=== PATIENT | female | born 1955 | race Caucasian/White ===

== ENCOUNTER 2018-04-14 13:36 | Emergency (ER) | payer BC, MEDICARE, OTHER ==
[2018-04-14] MEDS ORDERED: Albuterol/Ipratropium 3.0-0.5 MG/3 ML Neb Soln NEB ONE (14:36)
--- NOTE | 2018-04-14 14:38 | EDM.PDOC ---
ED HPI GENERAL MEDICAL PROBLEM - General Chief Complaint: Respiratory Problem Stated Complaint: SOB/ DIZZY/ BACK PAINS Time Seen by Provider: 04/14/18 14:33 Source of Information: Reports: Patient, RN Notes Reviewed History Limitations: Reports: No Limitations - History of Present Illness INITIAL COMMENTS - FREE TEXT/NARRATIVE: 62-year-old female presents to emergency department day complaint of cough and shortness of breath, she is tobacco dependent states she's been ill for the last couple days and she has had recurrent pneumonia in the past denies any fevers chest pain nausea vomiting Back Pain Score (Numeric/FACES): 10 - Related Data Allergies Allergy/AdvReac Type Severity Reaction Status Date / Time codeine Allergy Nausea Verified 04/14/18 14:16 fentanyl Allergy Cannot Verified 04/14/18 14:16 Remember Home Meds: Home Meds Albuterol [Proventil HFA] 2 puff INH Q4H PRN #1 inhaler 04/14/18 [Rx] Alendronate Sodium [Fosamax] 70 mg PO WEEKLY 04/14/18 [History] Calcium Acetate [PhosLo] 667 mg PO ASDIRECTED 04/14/18 [History] Cholecalciferol (Vitamin D3) [Vitamin D3] 5,000 unit PO DAILY 04/14/18 [History] Cyclobenzaprine [Flexeril] 10 mg PO ASDIRECTED 04/14/18 [History] Doxycycline Hyclate 100 mg PO BID #14 capsule 04/14/18 [Rx] Hydrocodone/Acetaminophen [Hydrocodon-Acetaminophen 5-325] 1 - 2 tab PO Q8H PRN 04/14/18 [History] Lisinopril [Zestril] 20 mg PO DAILY 04/14/18 [History] Omeprazole 40 mg PO DAILY 04/14/18 [History] Venlafaxine [Effexor XR] 300 mg PO DAILY 04/14/18 [History] Zolpidem Tartrate [Ambien] 10 mg PO BEDTIME PRN 04/14/18 [History] clonazePAM [Klonopin] 1 mg PO TID 04/14/18 [History] clonazePAM [Klonopin] 1 mg PO TID #30 tablet 04/14/18 [Rx] lamoTRIgine [Lamictal] 100 mg PO DAILY 04/14/18 [History] predniSONE [Prednisone] 20 mg PO DAILY #5 tablet 04/14/18 [Rx] rOPINIRole HCl [Requip] 1 - 2 mg PO BEDTIME 04/14/18 [History] Past Medical History HEENT History: Reports: Macular Degeneration 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: Reports: GERD 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: Musculoskeletal History: Reports: Back Pain, Chronic Psychiatric History: Reports: Anxiety, Depression - Past Surgical History HEENT Surgical History: Reports: Tonsillectomy Female Surgical History: Reports: Hysterectomy Musculoskeletal Surgical History: Reports: Shoulder Surgery Other Musculoskeletal Surgeries/Procedures:: back surgery Social & Family History - Tobacco Use Smoking Status *Q: Heavy Tobacco Smoker Years of Tobacco use: 45 Packs/Tins Daily: 1 - Caffeine Use Caffeine Use: Reports: Coffee - Recreational Drug Use Recreational Drug Use: No ED ROS GENERAL - Review of Systems Review Of Systems: See Below Constitutional: Denies: Fever, Chills HEENT: Reports: No Symptoms Respiratory: Reports: Shortness of Breath, Cough. Denies: Sputum Cardiovascular: Reports: Dyspnea on Exertion GI/Abdominal: Reports: No Symptoms : Reports: No Symptoms Musculoskeletal: Reports: No Symptoms ED EXAM, GENERAL - Physical Exam Exam: See Below Exam Limited By: No Limitations General Appearance: Alert, WD/WN, No Apparent Distress Respiratory/Chest: Decreased Breath Sounds, Wheezing. No: Respiratory Distress Cardiovascular: Regular Rate, Rhythm, No Murmur GI/Abdominal: Soft, Non-Tender Course - Vital Signs Last Recorded V/S: Last Vital Signs Temp 96.8 F 04/14/18 14:05 Pulse 85 04/14/18 14:05 Resp 20 04/14/18 14:05 BP 165/107 H 04/14/18 14:05 Pulse Ox 99 04/14/18 14:05 - Orders/Labs/Meds Orders: Active Orders 24 hr Category Date Time Status RT Aerosol Therapy [RC] ASDIRECTED Care 04/14/18 14:36 Active Chest 2V [CR] Urgent Exams 04/14/18 14:36 Taken Labs: Laboratory Tests 04/14/18 04/14/18 04/14/18 Range/Units 14:36 14:36 14:36 WBC 8.7 (4.5-11.0) K/uL RBC 4.62 (3.30-5.50) M/uL Hgb 13.7 (12.0-15.0) g/dL Hct 42.2 (36.0-48.0) % MCV 91 (80-98) fL MCH 30 (27-31) pg MCHC 33 (32-36) % Plt Count 388 (150-400) K/uL Neut % (Auto) 74 H (36-66) % Lymph % (Auto) 18 L (24-44) % Elk % (Auto) 7 H (2-6) % Eos % (Auto) 1 L (2-4) % Baso % (Auto) 1 (0-1) % Sodium 139 L (140-148) mmol/L Potassium 3.8 (3.6-5.2) mmol/L Chloride 103 (100-108) mmol/L Carbon Dioxide 26 (21-32) mmol/L Anion Gap 13.8 (5.0-14.0) mmol/L BUN 12 (7-18) mg/dL Creatinine 0.9 D (0.6-1.0) mg/dL Est Cr Clr Drug Dosing 52.57 mL/min Estimated GFR (MDRD) > 60 (>60) Glucose 97 (74-106) mg/dL Lactic Acid 0.9 (0.4-2.0) mmol/L Calcium 8.8 (8.5-10.1) mg/dL Total Bilirubin 0.2 (0.2-1.0) mg/dL AST 19 D (15-37) U/L ALT 23 D (12-78) U/L Alkaline Phosphatase 120 H (46-116) U/L Total Protein 7.3 (6.4-8.2) g/dL Albumin 3.6 (3.4-5.0) g/dL Globulin 3.7 H (2.3-3.5) g/dL Albumin/Globulin Ratio 1.0 L (1.2-2.2) Meds: Medications Discontinued Medications Generic Name Dose Route Start Last Admin Trade Name Freq PRN Reason Stop Dose Admin Albuterol/Ipratropium 3 ml 04/14/18 14:36 04/14/18 14:41 Duoneb 3.0-0.5 Mg/3 Ml NEB 04/14/18 14:37 3 ml ONETIME ONE Administration Departure - Departure Time of Disposition: 15:56 Disposition: Home, Self-Care 01 Condition: Good Clinical Impression: Bronchitis - Discharge Information Prescriptions: Albuterol [Proventil HFA] 2 puff INH Q4H PRN #1 inhaler PRN Reason: Shortness Of Breath clonazePAM [Klonopin] 1 mg PO TID #30 tablet Doxycycline Hyclate 100 mg PO BID #14 capsule predniSONE [Prednisone] 20 mg PO DAILY #5 tablet Referrals: PCP,None [Primary Care Provider] - Forms: ED Department Discharge Additional Instructions: Take full course of antibiotics, take full course of prednisone, use albuterol as needed for shortness of breath please keep your follow-up appointment with your primary care provider at the end of next week - My Orders Last 24 Hours: My Active Orders 04/14/18 14:36 RT Aerosol Therapy [RC] ASDIRECTED Chest 2V [CR] Urgent - Assessment/Plan Last 24 Hours: My Active Orders 04/14/18 14:36 RT Aerosol Therapy [RC] ASDIRECTED Chest 2V [CR] Urgent Plan: Assessment Acuity = acute Site and laterality = bronchitis complicated in a patient with tobacco dependence Etiology = suspicious for bacterial cause Manifestations = wheezing, dyspnea Location of injury = Home Lab values = CBC, CMP, lactic acid all within normal limits, chest x-ray I did review films myself I cannot appreciate any acute process, the official read from radiology is pending next field prescription written for doxycycline 100 mg by mouth twice a day 7 days, prednisone 20 mg once a day 5 days, albuterol inhaler 2 puffs every 4 hours when necessary as needed for shortness of breath, I did lilibeth her Klonopin 1 milligram by mouth 3 times a day total #30 until she follows up with her regular physician next Thursday Plan [ detail plan review] This note was dictated using [employer] voice recognition software please call with any questions on syntax or grammar.
--- NOTE | 2018-04-15 08:28 | CR ---
CHEST: 2 view CLINICAL HISTORY:SOB COMPARISON:2013 FINDINGS: The lungs are hyperaerated. The heart size, pulmonary vascular and hilar structures are no rmal. No infiltrate effusion or pneumothorax is seen. IMPRESSION: No acute cardiopulmonary process. Emphysematous changes
== END 2018-04-14 16:05 | disposition home or self-care (01) ==
LOC: JP.ED 13:36
DX: J40 Bronchitis, not specified as acute or chronic (principal); F17.210 Nicotine dependence, cigarettes, uncomplicated; Z79.899 Other long term (current) drug therapy; Z88.5 Allergy status to narcotic agent; Z88.8 Allergy status to other drugs, medicaments and biological substances
CPT/HCPCS: 36415; 71046; 71046-26; 80053; 83605; 85025; 94640; 99285-25; J7620-GY

== ENCOUNTER 2018-11-21 16:23 | Emergency (ER) | payer MEDICARE ==
[2018-11-21] MEDS ORDERED: Hyoscyamine 0.125 MG Tab.SL SL ONE (18:39)
[2018-11-21] MEDS ORDERED: Loperamide 1 MG/5 ML Soln 5 ML UD Cup PO ONE (18:39)
[2018-11-21] MEDS ORDERED: Ketorolac 60 MG/2 ML SDV IM ONE (18:39)
--- NOTE | 2018-11-21 18:48 | EDM.PDOC ---
ED HPI GENERAL MEDICAL PROBLEM - General Chief Complaint: Drug or Alcohol Abuse Stated Complaint: WITHDRAWLS Time Seen by Provider: 11/21/18 18:29 Source of Information: Reports: Patient, Old Records, RN Notes Reviewed History Limitations: Reports: No Limitations - History of Present Illness INITIAL COMMENTS - FREE TEXT/NARRATIVE: 63-year-old female presents emergency department today requesting narcotic medications, she has been using combination Percocet and morphine for chronic pain she states that she is in the process of withdrawing from these medications she last use narcotics Thursday morning. She has severe diarrhea as well as abdominal cramps she is scheduled to meet with the [facility] clinic on Thursday coming week and would like narcotics to bridge her Generalized Pain Score (Numeric/FACES): 10 - Related Data Allergies Allergy/AdvReac Type Severity Reaction Status Date / Time codeine Allergy Nausea Verified 04/14/18 14:16 fentanyl Allergy Cannot Verified 04/14/18 14:16 Remember Home Meds: Home Meds Calcium Acetate [PhosLo] 667 mg PO ASDIRECTED 04/14/18 [History] Cholecalciferol (Vitamin D3) [Vitamin D3] 5,000 unit PO DAILY 04/14/18 [History] Omeprazole 40 mg PO DAILY 04/14/18 [History] Venlafaxine [Effexor XR] 300 mg PO DAILY 04/14/18 [History] Zolpidem Tartrate [Ambien] 10 mg PO BEDTIME PRN 04/14/18 [History] clonazePAM [Klonopin] 1 mg PO TID #30 tablet 04/14/18 [Rx] Acetaminophen/oxyCODONE [Percocet 325-10 MG] 1 tab PO QID 11/21/18 [History] Diphenoxylate HCl/Atropine [Diphenoxylate-Atrop 2.5-0.025] 1 tab PO ASDIRECTED 11/21/18 [History] Morphine Sulfate 30 mg PO BID 11/21/18 [History] Past Medical History HEENT History: Reports: Macular Degeneration 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: Reports: GERD 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: Musculoskeletal History: Reports: Back Pain, Chronic Psychiatric History: Reports: Addiction, Anxiety, Depression - Past Surgical History HEENT Surgical History: Reports: Tonsillectomy Female Surgical History: Reports: Hysterectomy Musculoskeletal Surgical History: Reports: Shoulder Surgery Other Musculoskeletal Surgeries/Procedures:: back surgery Social & Family History - Tobacco Use Smoking Status *Q: Current Every Day Smoker Years of Tobacco use: 50 Packs/Tins Daily: 1 - Caffeine Use Caffeine Use: Reports: Coffee - Recreational Drug Use Recreational Drug Use: No Other Recreational Drug Type: cbd oil ED ROS GENERAL - Review of Systems Review Of Systems: See Below Constitutional: Reports: No Symptoms HEENT: Reports: No Symptoms Respiratory: Reports: No Symptoms Cardiovascular: Reports: No Symptoms GI/Abdominal: Reports: Abdominal Pain, Diarrhea : Reports: No Symptoms Musculoskeletal: Reports: No Symptoms ED EXAM, GENERAL - Physical Exam Exam: See Below Exam Limited By: No Limitations General Appearance: Alert, WD/WN, No Apparent Distress Respiratory/Chest: No Respiratory Distress GI/Abdominal: Soft, Non-Tender Course - Vital Signs Last Recorded V/S: Last Vital Signs Temp 94.6 F L 11/21/18 17:35 Pulse 71 11/21/18 17:35 Resp 18 11/21/18 17:35 BP 129/86 11/21/18 17:35 Pulse Ox 97 11/21/18 17:35 - Orders/Labs/Meds Orders: Active Orders 24 hr Category Date Time Status Hyoscyamine [Hyomax-SL] Med 11/21/18 18:39 Once 0.125 mg SL ONETIME ONE Ketorolac [Toradol] Med 11/21/18 18:39 Once 60 mg IM ONETIME ONE Loperamide [Imodium] Med 11/21/18 18:39 Once 4 mg PO ONETIME ONE Departure - Departure Time of Disposition: 18:50 Disposition: Home, Self-Care 01 Condition: Poor Clinical Impression: Narcotic withdrawal - Discharge Information Referrals: Michele Frye MD [Primary Care Provider] - Additional Instructions: Please keep your follow-up appointment at the Sub[facility] clinic recommend trying the medications you're to have on hand for symptomatic relief - My Orders Last 24 Hours: My Active Orders 11/21/18 18:39 Hyoscyamine [Hyomax-SL] 0.125 mg SL ONETIME ONE Ketorolac [Toradol] 60 mg IM ONETIME ONE Loperamide [Imodium] 4 mg PO ONETIME ONE - Assessment/Plan Last 24 Hours: My Active Orders 11/21/18 18:39 Hyoscyamine [Hyomax-SL] 0.125 mg SL ONETIME ONE Ketorolac [Toradol] 60 mg IM ONETIME ONE Loperamide [Imodium] 4 mg PO ONETIME ONE Plan: Assessment Acuity = acute Site and laterality = opioid withdrawal Etiology = secondary to chronic narcotic use Manifestations = none Location of injury = Home Lab values = none Plan She was given medications of Toradol for pain control as well as Anaspaz for the abdominal cramping and Imodium for the diarrhea, she states she's used all these medications in the past with no relief for her symptomatic relief she states the only thing that will work are narcotics I declined to provide her any narcotic medication This note was dictated using [employer] voice recognition software please call with any questions on syntax or grammar.
== END 2018-11-21 19:07 | disposition home or self-care (01) ==
LOC: JP.ED 16:23
DX: F11.23 Opioid dependence with withdrawal (principal); F17.210 Nicotine dependence, cigarettes, uncomplicated; Z88.5 Allergy status to narcotic agent; Z79.899 Other long term (current) drug therapy
CPT/HCPCS: 96372; 99283; A9270; J1885

== ENCOUNTER 2019-03-22 22:24 | Observation (INO) | payer MEDICARE ==
--- NOTE | 2019-03-22 23:05 | EDM.PDOC ---
ED HPI GENERAL MEDICAL PROBLEM - General Chief Complaint: General Stated Complaint: MEDICAL [facility] Time Seen by Provider: 03/22/19 23:05 Source of Information: Reports: Patient History Limitations: Reports: No Limitations - History of Present Illness INITIAL COMMENTS - FREE TEXT/NARRATIVE: pt arrived screaming that she was having severe leg cramps. She is on suboxnone and this was perscribed by Dr Serrano. Onset: Today, Sudden Duration: Hour(s): Location: Reports: Other (pt states she is having leg cramps ans diarrhea. ) Associated Symptoms: Reports: Loss of Appetite, Weakness, Other (leg cramps) Bilateral Leg Pain Score (Numeric/FACES): 8 - Related Data Allergies Allergy/AdvReac Type Severity Reaction Status Date / Time fentanyl Allergy Cannot Verified 04/14/18 14:16 Remember meperidine [From Demerol] Allergy Cannot Verified 03/22/19 22:42 Remember morphine Allergy Cannot Verified 03/22/19 22:42 Remember codeine AdvReac Nausea Verified 03/23/19 16:24 Home Meds: Home Meds Calcium Acetate [PhosLo] 667 mg PO ASDIRECTED 04/14/18 [History] Omeprazole 40 mg PO DAILY 04/14/18 [History] Venlafaxine [Effexor XR] 300 mg PO DAILY 04/14/18 [History] Zolpidem Tartrate [Ambien] 10 mg PO BEDTIME PRN 04/14/18 [History] clonazePAM [Klonopin] 1 mg PO TID #30 tablet 04/14/18 [Rx] Naltrexone 25 mg PO DAILY 03/22/19 [History] buPROPion [buPROPion XL] 150 mg PO DAILY 03/22/19 [History] clonazePAM [Klonopin] 1 mg PO DAILY 03/22/19 [History] traZODone HCl [Trazodone HCl] 50 mg PO BEDTIME 03/22/19 [History] Buprenorphine HCl/Naloxone HCl [Suboxone 12 mg-3 mg Sl Film] 0.5 strip BUCCAL TID 03/23/19 [History] Past Medical History HEENT History: Reports: Macular Degeneration 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: Reports: GERD [employer]IAN History: Reports: Musculoskeletal History: Reports: Back Pain, Chronic Psychiatric History: Reports: Addiction, Anxiety, Depression - Past Surgical History HEENT Surgical History: Reports: Tonsillectomy Female Surgical History: Reports: Hysterectomy Musculoskeletal Surgical History: Reports: Shoulder Surgery Other Musculoskeletal Surgeries/Procedures:: back surgery Social & Family History - Family History Family Medical History: Unobtainable - Tobacco Use Smoking Status *Q: Current Every Day Smoker Years of Tobacco use: 40 Packs/Tins Daily: 1 - Caffeine Use Caffeine Use: Reports: Coffee Caffeine Use Comment: daily coffee use - Recreational Drug Use Recreational Drug Use: No ED ROS GENERAL - Review of Systems Review Of Systems: See Below Constitutional: Reports: Decreased Appetite HEENT: Reports: No Symptoms Respiratory: Reports: No Symptoms Cardiovascular: Reports: No Symptoms Endocrine: Reports: No Symptoms GI/Abdominal: Reports: Abdominal Pain, Nausea, Vomiting : Reports: No Symptoms Musculoskeletal: Reports: No Symptoms Skin: Reports: No Symptoms ED EXAM, GENERAL - Physical Exam Exam: See Below Free Text/Narrative:: pt arrived with pain in the rt lower abdoman. t Exam Limited By: No Limitations General Appearance: Alert, Moderate Distress, Severe Distress Ears: Normal TMs Nose: Normal Inspection Throat/Mouth: Normal Inspection Head: Atraumatic Neck: Normal Inspection Respiratory/Chest: No Respiratory Distress Cardiovascular: Regular Rate, Rhythm GI/Abdominal: Soft, Non-Tender (Female) Exam: Deferred Rectal (Female) Exam: Deferred Back Exam: Normal Inspection Extremities: Normal Inspection, Other (pt is having severe cramps in the legs. ) Neurological: Alert, Oriented, Inattentive, Confused Psychiatric: Anxious Course - Vital Signs Last Recorded V/S: Last Vital Signs Temp 36.2 C 03/24/19 19:58 Pulse 64 03/24/19 19:58 Resp 18 03/24/19 19:58 BP 137/83 03/24/19 19:58 Pulse Ox 93 L 03/24/19 19:58 - Orders/Labs/Meds Orders: Medication Orders Acetaminophen (Tylenol) 650 mg PO Q4H PRN PRN Reason: Pain (Mild 1-3)/fever Last Admin: 03/24/19 11:41 Dose: 650 mg Admin: 03/23/19 19:26 Dose: 650 mg Albuterol (Proventil Neb Soln) 2.5 mg NEB Q4H PRN PRN Reason: Shortness Of Breath/wheezing Bupropion HCl (Wellbutrin Xl) 150 mg PO DAILY ALEX Last Admin: 03/24/19 09:23 Dose: 150 mg Admin: 03/23/19 09:27 Dose: 150 mg Clonazepam (Klonopin) 1 mg PO TID [facility] Last Admin: 03/24/19 20:07 Dose: 1 mg Admin: 03/23/19 15:14 Dose: Not Given Admin: 03/23/19 09:27 Dose: 1 mg Docusate Sodium (Colace) 100 mg PO BID PRN PRN Reason: Constipation Promethazine HCl 6.25 mg/ (Sodium Chloride) 50.25 mls @ 200 mls/hr IV Q6H PRN PRN Reason: Nausea/Vomiting Last Admin: 03/23/19 06:33 Dose: 200 mls/hr Sodium Chloride (Normal Saline) 1,000 mls @ 50 mls/hr IV ASDIRECTED [facility] Last Admin: 03/24/19 11:56 Dose: 50 mls/hr Ibuprofen (Motrin) 600 mg PO Q6H PRN PRN Reason: Pain Last Admin: 03/24/19 20:07 Dose: 600 mg Lorazepam (Ativan) 1 mg IVPUSH Q4H PRN PRN Reason: Agitation Last Admin: 03/23/19 13:45 Dose: 1 mg Ondansetron HCl (Zofran Odt) 4 mg PO Q6H PRN PRN Reason: Nausea able to take PO Last Admin: 03/23/19 19:27 Dose: 4 mg Admin: 03/23/19 13:45 Dose: 4 mg Pantoprazole Sodium (Protonix) 40 mg PO ACBREAKFAST [facility] Last Admin: 03/24/19 07:26 Dose: 40 mg Admin: 03/23/19 09:27 Dose: 40 mg Admin: 03/23/19 06:26 Dose: 40 mg Buprenor/Nalox 12mg/ (3mg Sl Film (Ptom)) 0 each PO TID [facility] Last Admin: 03/24/19 20:08 Dose: 0.5 each Admin: 03/24/19 14:16 Dose: 1 each Admin: 03/24/19 09:24 Dose: 1 each Admin: 03/24/19 03:19 Dose: 0.5 each Admin: 03/23/19 21:55 Dose: Not Given Admin: 03/23/19 15:14 Dose: Not Given Trazodone HCl (Trazodone) 50 mg PO BEDTIME [facility] Last Admin: 03/24/19 20:08 Dose: 50 mg Admin: 03/23/19 20:00 Dose: 50 mg Venlafaxine HCl (Effexor Xr) 300 mg PO DAILY [facility] Last Admin: 03/24/19 09:23 Dose: 300 mg Admin: 03/23/19 09:27 Dose: 300 mg Labs: Laboratory Tests 03/22/19 03/22/19 03/22/19 Range/Units 23:04 23:05 23:15 WBC 11.2 H (4.5-11.0) K/uL RBC 5.03 (3.30-5.50) M/uL Hgb 14.4 (12.0-15.0) g/dL Hct 44.7 (36.0-48.0) % MCV 89 (80-98) fL MCH 29 (27-31) pg MCHC 32 (32-36) % Plt Count 369 (150-400) K/uL Neut % (Auto) 71 H (36-66) % Lymph % (Auto) 20 L (24-44) % [place] % (Auto) 6 (2-6) % Eos % (Auto) 2 (2-4) % Baso % (Auto) 0 (0-1) % Sodium (140-148) mmol/L Potassium (3.6-5.2) mmol/L Chloride (100-108) mmol/L Carbon Dioxide (21-32) mmol/L Anion Gap (5.0-14.0) mmol/L BUN (7-18) mg/dL Creatinine (0.6-1.0) mg/dL Est Cr Clr Drug Dosing mL/min Estimated GFR (MDRD) (>60) Glucose (74-106) mg/dL Calcium (8.5-10.1) mg/dL Total Bilirubin (0.2-1.0) mg/dL AST (15-37) U/L ALT (12-78) U/L Alkaline Phosphatase (46-116) U/L Total Protein (6.4-8.2) g/dL Albumin (3.4-5.0) g/dL Globulin (2.3-3.5) g/dL Albumin/Globulin Ratio (1.2-2.2) Urine Color Yellow (YELLOW) Urine Appearance Clear (CLEAR) Urine pH 5.5 (5.0-8.0) Ur Specific [place] 1.025 (1.008-1.030) Urine Protein Negative (NEGATIVE) mg/dL Urine Glucose (UA) Normal (NEGATIVE) mg/dL Urine Ketones Negative (NEGATIVE) mg/dL Urine Occult Blood Trace (NEGATIVE) Urine Nitrite Negative (NEGATIVE) Urine Bilirubin Negative (NEGATIVE) Urine Urobilinogen Normal (0.2-1.0) EU/dL Ur Leukocyte Esterase Negative (NEGATIVE) Urine RBC 0-5 (0-5) Urine WBC 0-5 (0-5) Ur Epithelial Cells Few Amorphous Sediment Few Urine Bacteria Few Urine Mucus Not seen Urine Opiates Screen Negative (NEGATIVE) Ur Oxycodone Screen Presumptive positive H (NEGATIVE) Urine Methadone Screen Negative (NEGATIVE) Ur Propoxyphene Screen Negative (NEGATIVE) Ur Barbiturates Screen Negative (NEGATIVE) Ur Tricyclics Screen Negative (NEGATIVE) Ur Phencyclidine Scrn Negative (NEGATIVE) Ur Amphetamine Screen Negative (NEGATIVE) U Methamphetamines Scrn Negative (NEGATIVE) Urine MDMA Screen Negative (NEGATIVE) U Benzodiazepines Scrn Negative (NEGATIVE) U Cocaine Metab Screen Negative (NEGATIVE) U Marijuana (THC) Screen Negative (NEGATIVE) Ethyl Alcohol mg/dL 03/22/19 03/22/19 Range/Units 23:15 23:15 WBC (4.5-11.0) K/uL RBC (3.30-5.50) M/uL Hgb (12.0-15.0) g/dL Hct (36.0-48.0) % MCV (80-98) fL MCH (27-31) pg MCHC (32-36) % Plt Count (150-400) K/uL Neut % (Auto) (36-66) % Lymph % (Auto) (24-44) % [place] % (Auto) (2-6) % Eos % (Auto) (2-4) % Baso % (Auto) (0-1) % Sodium 140 (140-148) mmol/L Potassium 3.8 (3.6-5.2) mmol/L Chloride 103 (100-108) mmol/L Carbon Dioxide 28 (21-32) mmol/L Anion Gap 9.1 (5.0-14.0) mmol/L BUN 15 (7-18) mg/dL Creatinine 1.6 H D (0.6-1.0) mg/dL Est Cr Clr Drug Dosing 29.20 mL/min Estimated GFR (MDRD) 33 L (>60) Glucose 78 (74-106) mg/dL Calcium 9.3 (8.5-10.1) mg/dL Total Bilirubin 0.2 (0.2-1.0) mg/dL AST 17 (15-37) U/L ALT 21 (12-78) U/L Alkaline Phosphatase 162 H (46-116) U/L Total Protein 7.5 (6.4-8.2) g/dL Albumin 3.9 (3.4-5.0) g/dL Globulin 3.6 H (2.3-3.5) g/dL Albumin/Globulin Ratio 1.1 L (1.2-2.2) Urine Color (YELLOW) Urine Appearance (CLEAR) Urine pH (5.0-8.0) Ur Specific [place] (1.008-1.030) Urine Protein (NEGATIVE) mg/dL Urine Glucose (UA) (NEGATIVE) mg/dL Urine Ketones (NEGATIVE) mg/dL Urine Occult Blood (NEGATIVE) Urine Nitrite (NEGATIVE) Urine Bilirubin (NEGATIVE) Urine Urobilinogen (0.2-1.0) EU/dL Ur Leukocyte Esterase (NEGATIVE) Urine RBC (0-5) Urine WBC (0-5) Ur Epithelial Cells Amorphous Sediment Urine Bacteria Urine Mucus Urine Opiates Screen (NEGATIVE) Ur Oxycodone Screen (NEGATIVE) Urine Methadone Screen (NEGATIVE) Ur Propoxyphene Screen (NEGATIVE) Ur Barbiturates Screen (NEGATIVE) Ur Tricyclics Screen (NEGATIVE) Ur Phencyclidine Scrn (NEGATIVE) Ur Amphetamine Screen (NEGATIVE) U Methamphetamines Scrn (NEGATIVE) Urine MDMA Screen (NEGATIVE) U Benzodiazepines Scrn (NEGATIVE) U Cocaine Metab Screen (NEGATIVE) U Marijuana (THC) Screen (NEGATIVE) Ethyl Alcohol < 3 mg/dL Meds: Medications Generic Name Dose Route Start Last Admin Trade Name Freq PRN Reason Stop Dose Admin Acetaminophen 650 mg 03/23/19 03:16 03/24/19 11:41 Tylenol PO 650 mg Q4H PRN Administration Pain (Mild 1-3)/fever Albuterol 2.5 mg 03/23/19 03:16 Proventil Neb Soln NEB Q4H PRN Shortness Of Breath/wheezing Bupropion HCl 150 mg 03/23/19 09:00 03/24/19 09:23 Wellbutrin Xl PO 150 mg DAILY ALEX Administration Clonazepam 1 mg 03/23/19 09:00 03/24/19 20:07 Klonopin PO 1 mg TID ALEX Administration Docusate Sodium 100 mg 03/23/19 03:16 Colace PO BID PRN Constipation Promethazine HCl 6.25 mg/ 50.25 mls @ 200 mls/hr 03/23/19 03:16 03/23/19 06: 33 Sodium Chloride IV 200 mls/hr Q6H PRN Administration Nausea/Vomiting Sodium Chloride 1,000 mls @ 50 mls/hr 03/24/19 10:05 03/24/19 11:56 Normal Saline IV 50 mls/hr ASDIRECTED ALEX Administration Ibuprofen 600 mg 03/24/19 10:06 03/24/19 20:07 Motrin PO 600 mg Q6H PRN Administration Pain Lorazepam 1 mg 03/23/19 03:16 03/23/19 13:45 Ativan IVPUSH 1 mg Q4H PRN Administration Agitation Ondansetron HCl 4 mg 03/23/19 03:16 03/23/19 19:27 Zofran Odt PO 4 mg Q6H PRN Administration Nausea able to take PO Pantoprazole Sodium 40 mg 03/23/19 07:30 03/24/19 07:26 Protonix PO 40 mg ACBREAKFAST ALEX Administration Buprenor/Nalox 12mg/ 0 each 03/23/19 14:00 03/24/19 20:08 3mg Sl Film (Ptom) PO 0.5 each TID ALEX Administration Trazodone HCl 50 mg 03/23/19 21:00 03/24/19 20:08 Trazodone PO 50 mg BEDTIME ALEX Administration Venlafaxine HCl 300 mg 03/23/19 09:00 03/24/19 09:23 Effexor Xr PO 300 mg DAILY ALEX Administration Discontinued Medications Generic Name Dose Route Start Last Admin Trade Name Freq PRN Reason Stop Dose Admin Al Hydroxide/Mg Hydroxide 15 0 ml 03/23/19 00:52 03/23/19 00:56 ml/ Lidocaine HCl 15 ml PO 03/23/19 00:53 30 ml ONETIME ONE Administration Sodium Chloride 1,000 mls @ 999 mls/hr 03/23/19 00:15 03/23/19 00:45 Normal Saline IV 999 mls/hr ASDIRECTED ALEX Administration Sodium Chloride 1,000 mls @ 999 mls/hr 03/23/19 01:15 Normal Saline IV ASDIRECTED ALXE Sodium Chloride 1,000 mls @ 125 mls/hr 03/23/19 03:16 03/24/19 03:42 Normal Saline IV 125 mls/hr ASDIRECTED ALEX Administration Potassium Chloride 20 meq/ 100 mls @ 50 mls/hr 03/24/19 05:59 03/24/19 06:24 Premix IV 03/24/19 09:58 50 mls/hr Q2H ALEX Administration Potassium Chloride 20 meq/ 112 mls @ 56 mls/hr 03/24/19 08:30 03/24/19 09:30 Lidocaine HCl 2 ml/ Sodium IV 03/24/19 10:29 56 mls/hr Chloride ONETIME ONE Administration Ibuprofen 800 mg 03/23/19 03:16 Motrin PO Q6H PRN Pain (mild 1-3) Ketorolac Tromethamine 30 mg 03/23/19 03:16 Toradol IVPUSH 03/28/19 03:17 Q6H PRN Pain (moderate 4-6) Lidocaine HCl 5 ml 03/24/19 06:04 03/24/19 06:24 Xylocaine-Mpf 1% INJECT 03/24/19 06:05 5 ml ONETIME ONE Administration Lorazepam 2 mg 03/23/19 01:14 03/23/19 01:26 Ativan IVPUSH 03/23/19 01:15 2 mg ONETIME ONE Administration Non-Formulary Medication 1 film 03/23/19 09:00 03/23/19 10:55 Buprenorphine Hcl/Naloxone Hcl [Buprenorp-Nalox 8-2 Mg Sl Film] PO Not Given DAILY ALEX Oxycodone/Acetaminophen 1 tab 03/23/19 22:02 03/24/19 06:39 Percocet 325-5 Mg PO 1 tab Q4H PRN Administration Pain Potassium Chloride 40 meq 03/24/19 16:30 03/24/19 16:44 Klor-Con M20 PO 03/24/19 16:31 40 meq ONETIME ONE Administration Trazodone HCl 50 mg 03/23/19 09:00 08/28/19 09:27 Trazodone PO Not Given DAILY ALEX - Re-Assessments/Exams Free Text/Narrative Re-Assessment/Exam: 03/23/19 01:35 lab work lookd good except her creatinine is 1.6. Her cat scan did not show acute findings. her drug screen showed oxycodone but no other drugs. Departure - Departure Time of Disposition: 01:36 Disposition: Admitted As Inpatient 68 Condition: Fair Clinical Impression: Confusion, Dehydration - Discharge Information
[2019-03-23] MEDS ORDERED: Sodium Chloride 0.9% 1,000 ML IV SCH ×2 (00:15→01:15)
[2019-03-23] MEDS ORDERED: Alum Hydrox/Mag Hydrox/Simeth 15 ML, Lidocaine 2% 15 ML PO ONE ×2 (00:52)
[2019-03-23] MEDS ORDERED: LORazepam 2 MG/ML SDV IVPUSH ONE (01:14)
--- NOTE | 2019-03-23 01:35 | CRLCT ---
INDICATION: Confusion TECHNIQUE: CT head without contrast. COMPARISON: Head CT 06/26/2013 FINDINGS: CSF spaces: Within normal limits for age. Brain parenchyma: The love-white differentiation is normal. No sign of mass, hemorrhage, or midline shift. Skull base and calvarium: Mild mucosal thickening paranasal sinuses. Mild atherosclerotic calcification. The visualized orbits are grossly unremarkable. No skull fractures. IMPRESSION: Unremarkable noncontrast head CT. Please note that all CT scans at this facility use dose modulation, iterative reconstruction, and/or weight-based dosing when appropriate to reduce radiation dose to as low as reasonably achievable. Dictated by Quan Norwood MD @ Mar 23 2019 1:29AM Signed by Dr. Quan Norwood @ Mar 23 2019 1:34AM
--- NOTE | 2019-03-23 01:41 | PCM.HP.2 ---
H&P History of Present Illness - General Date of Service: 03/23/19 Admit Problem/Dx: Admission Diagnosis/Problem Admission Diagnosis/Problem Confusion Source of Information: EMS, Provider, RN History Limitations: Reports: Altered Mental Status - History of Present Illness Initial Comments - Free Text/Narative: chief complaint: leg cramps This is a 63 year old female present to the ER via EMS, reports she called the ambulance due to severe leg cramps. The EMS noted her to be confused rambling speech, paranoid, frequent yelling out in pain. unable to obtain history of present illness from Ms. Fairbanks. current history -Suboxone patient -psych medication Onset of Symptoms: Reports: Sudden Duration of Symptoms: Reports: Hour(s): Location: Reports: Other (lower leg cramps, multi complaints of pain in body) Quality: Reports: Sharp, Stabbing Severity: Severe Improves with: Reports: None Worsens with: Reports: None Context: Reports: Other (various pain complaint, rambling speech, not making any sense or answer questions appropriately.) Associated Symptoms: Reports: Confusion Bilateral Leg Pain Score (Numeric/FACES): 8 - Related Data Allergies/Adverse Reactions: Allergies Allergy/AdvReac Type Severity Reaction Status Date / Time codeine Allergy Nausea Verified 04/14/18 14:16 fentanyl Allergy Cannot Verified 04/14/18 14:16 Remember meperidine [From Demerol] Allergy Cannot Verified 03/22/19 22:42 Remember morphine Allergy Cannot Verified 03/22/19 22:42 Remember Home Medications: Home Meds Calcium Acetate [PhosLo] 667 mg PO ASDIRECTED 04/14/18 [History] Omeprazole 40 mg PO DAILY 04/14/18 [History] Venlafaxine [Effexor XR] 300 mg PO DAILY 04/14/18 [History] Zolpidem Tartrate [Ambien] 10 mg PO BEDTIME PRN 04/14/18 [History] clonazePAM [Klonopin] 1 mg PO TID #30 tablet 04/14/18 [Rx] Buprenorphine HCl/Naloxone HCl [Buprenorp-Nalox 8-2 mg Sl Film] 1 film PO DAILY 03/22/19 [History] Naltrexone 50 mg PO DAILY 03/22/19 [History] buPROPion [buPROPion XL] 150 mg PO DAILY 03/22/19 [History] clonazePAM [Klonopin] 1 mg PO DAILY 03/22/19 [History] traZODone HCl [Trazodone HCl] 50 mg PO DAILY 03/22/19 [History] Past Medical History HEENT History: Reports: Macular Degeneration 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: Reports: GERD 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: Musculoskeletal History: Reports: Back Pain, Chronic Psychiatric History: Reports: Addiction, Anxiety, Depression - Past Surgical History HEENT Surgical History: Reports: Tonsillectomy Female Surgical History: Reports: Hysterectomy Musculoskeletal Surgical History: Reports: Shoulder Surgery Other Musculoskeletal Surgeries/Procedures:: back surgery Social & Family History - Family History Family Medical History: Unobtainable - Tobacco Use Smoking Status *Q: Current Every Day Smoker Years of Tobacco use: 40 Packs/Tins Daily: 1 - Caffeine Use Caffeine Use: Reports: Coffee Caffeine Use Comment: daily coffee use - Recreational Drug Use Recreational Drug Use: No H&P Review of Systems - Review of Systems: Review Of Systems: Unable To Obtain Exam - Exam Exam: See Below - Vital Signs Vital Signs: Last Vital Signs Temp 35.5 C 03/22/19 22:47 Pulse 80 03/23/19 01:03 Resp 14 03/23/19 01:03 BP 155/98 H 03/23/19 01:03 Pulse Ox 96 03/22/19 22:47 Weight: 52.163 kg - Exam General: Other (rambling speech, paranoid thoughts) HEENT: Conjunctiva Clear, EOMI, Hearing Intact, Mucosa Moist & [place], Pupils Equal Neck: Supple, Full Range of Motion Lungs: Clear to Auscultation, Normal Respiratory Effort Cardiovascular: Regular Rate, Regular Rhythm, Normal S1, Normal S2 GI/Abdominal Exam: Normal Bowel Sounds, Soft, Non-Tender, No Distention (Female) Exam: Deferred Rectal (Female) Exam: Deferred Back Exam: Normal Inspection, Full Range of Motion Extremities: Normal Inspection, Normal Range of Motion, Non-Tender, No Pedal Edema, Normal Capillary Refill, Other (calf muscles are soft and palpable. negative alva's sign) Peripheral Pulses: 2+: Radial (L), Radial (R), Dorsalis Pedis (L), Dorsalis Pedis (R) Skin: Warm, Dry, Intact Neurological: Strength Equal Bilateral, Normal Tone Neuro Extensive - Mental Status: Disorientation to Person, Disorientation to Place, Disorientation to Time, Inattentive Psychiatric: Agitated, Other (paranoid thoughts) - Patient Data Lab Results Last 24 hrs: Laboratory Results - last 24 hr 03/22/19 03/22/19 03/22/19 Range/Units 23:04 23:05 23:15 WBC 11.2 H (4.5-11.0) K/uL RBC 5.03 (3.30-5.50) M/uL Hgb 14.4 (12.0-15.0) g/dL Hct 44.7 (36.0-48.0) % MCV 89 (80-98) fL MCH 29 (27-31) pg MCHC 32 (32-36) % Plt Count 369 (150-400) K/uL Neut % (Auto) 71 H (36-66) % Lymph % (Auto) 20 L (24-44) % [place] % (Auto) 6 (2-6) % Eos % (Auto) 2 (2-4) % Baso % (Auto) 0 (0-1) % Sodium (140-148) mmol/L Potassium (3.6-5.2) mmol/L Chloride (100-108) mmol/L Carbon Dioxide (21-32) mmol/L Anion Gap (5.0-14.0) mmol/L BUN (7-18) mg/dL Creatinine (0.6-1.0) mg/dL Est Cr Clr Drug Dosing mL/min Estimated GFR (MDRD) (>60) Glucose (74-106) mg/dL Calcium (8.5-10.1) mg/dL Total Bilirubin (0.2-1.0) mg/dL AST (15-37) U/L ALT (12-78) U/L Alkaline Phosphatase (46-116) U/L Total Protein (6.4-8.2) g/dL Albumin (3.4-5.0) g/dL Globulin (2.3-3.5) g/dL Albumin/Globulin Ratio (1.2-2.2) Urine Color Yellow (YELLOW) Urine Appearance Clear (CLEAR) Urine pH 5.5 (5.0-8.0) Ur Specific [place] 1.025 (1.008-1.030) Urine Protein Negative (NEGATIVE) mg/dL Urine Glucose (UA) Normal (NEGATIVE) mg/dL Urine Ketones Negative (NEGATIVE) mg/dL Urine Occult Blood Trace (NEGATIVE) Urine Nitrite Negative (NEGATIVE) Urine Bilirubin Negative (NEGATIVE) Urine Urobilinogen Normal (0.2-1.0) EU/dL Ur Leukocyte Esterase Negative (NEGATIVE) Urine RBC 0-5 (0-5) Urine WBC 0-5 (0-5) Ur Epithelial Cells Few Amorphous Sediment Few Urine Bacteria Few Urine Mucus Not seen Urine Opiates Screen Negative (NEGATIVE) Ur Oxycodone Screen Presumptive positive H (NEGATIVE) Urine Methadone Screen Negative (NEGATIVE) Ur Propoxyphene Screen Negative (NEGATIVE) Ur Barbiturates Screen Negative (NEGATIVE) Ur Tricyclics Screen Negative (NEGATIVE) Ur Phencyclidine Scrn Negative (NEGATIVE) Ur Amphetamine Screen Negative (NEGATIVE) U Methamphetamines Scrn Negative (NEGATIVE) Urine MDMA Screen Negative (NEGATIVE) U Benzodiazepines Scrn Negative (NEGATIVE) U Cocaine Metab Screen Negative (NEGATIVE) U Marijuana (THC) Screen Negative (NEGATIVE) Ethyl Alcohol mg/dL 03/22/19 03/22/19 Range/Units 23:15 23:15 WBC (4.5-11.0) K/uL RBC (3.30-5.50) M/uL Hgb (12.0-15.0) g/dL Hct (36.0-48.0) % MCV (80-98) fL MCH (27-31) pg MCHC (32-36) % Plt Count (150-400) K/uL Neut % (Auto) (36-66) % Lymph % (Auto) (24-44) % [place] % (Auto) (2-6) % Eos % (Auto) (2-4) % Baso % (Auto) (0-1) % Sodium 140 (140-148) mmol/L Potassium 3.8 (3.6-5.2) mmol/L Chloride 103 (100-108) mmol/L Carbon Dioxide 28 (21-32) mmol/L Anion Gap 9.1 (5.0-14.0) mmol/L BUN 15 (7-18) mg/dL Creatinine 1.6 H D (0.6-1.0) mg/dL Est Cr Clr Drug Dosing 29.20 mL/min Estimated GFR (MDRD) 33 L (>60) Glucose 78 (74-106) mg/dL Calcium 9.3 (8.5-10.1) mg/dL Total Bilirubin 0.2 (0.2-1.0) mg/dL AST 17 (15-37) U/L ALT 21 (12-78) U/L Alkaline Phosphatase 162 H (46-116) U/L Total Protein 7.5 (6.4-8.2) g/dL Albumin 3.9 (3.4-5.0) g/dL Globulin 3.6 H (2.3-3.5) g/dL Albumin/Globulin Ratio 1.1 L (1.2-2.2) Urine Color (YELLOW) Urine Appearance (CLEAR) Urine pH (5.0-8.0) Ur Specific [place] (1.008-1.030) Urine Protein (NEGATIVE) mg/dL Urine Glucose (UA) (NEGATIVE) mg/dL Urine Ketones (NEGATIVE) mg/dL Urine Occult Blood (NEGATIVE) Urine Nitrite (NEGATIVE) Urine Bilirubin (NEGATIVE) Urine Urobilinogen (0.2-1.0) EU/dL Ur Leukocyte Esterase (NEGATIVE) Urine RBC (0-5) Urine WBC (0-5) Ur Epithelial Cells Amorphous Sediment Urine Bacteria Urine Mucus Urine Opiates Screen (NEGATIVE) Ur Oxycodone Screen (NEGATIVE) Urine Methadone Screen (NEGATIVE) Ur Propoxyphene Screen (NEGATIVE) Ur Barbiturates Screen (NEGATIVE) Ur Tricyclics Screen (NEGATIVE) Ur Phencyclidine Scrn (NEGATIVE) Ur Amphetamine Screen (NEGATIVE) U Methamphetamines Scrn (NEGATIVE) Urine MDMA Screen (NEGATIVE) U Benzodiazepines Scrn (NEGATIVE) U Cocaine Metab Screen (NEGATIVE) U Marijuana (THC) Screen (NEGATIVE) Ethyl Alcohol < 3 mg/dL Result Diagrams: 03/22/19 23:15 03/22/19 23:15 - Problem List (1) Confusion SNOMED Code(s): 635830215 ICD Code: R41.0 - DISORIENTATION, UNSPECIFIED Status: Acute Priority: High Current Visit: Yes (2) Opiate addiction SNOMED Code(s): 04435943 ICD Code: F11.20 - OPIOID DEPENDENCE, UNCOMPLICATED Status: Chronic Priority: Medium Current Visit: Yes Qualifiers: Complication of substance-induced condition: with delirium Problem List Initiated/Reviewed/Updated: Yes Orders Last 24hrs: Active Orders 24 hr Category Date Time Status Patient Status Manage Transfer [TRANSFER] Routine ADT 03/23/19 01:21 Active Sodium Chloride 0.9% [Normal Saline] 1,000 ml Med 03/23/19 00:15 Active IV ASDIRECTED Sodium Chloride 0.9% [Normal Saline] 1,000 ml Med 03/23/19 01:15 Active IV ASDIRECTED Resuscitation Status Routine Resus Stat 03/23/19 01:22 Ordered Medication Orders Sodium Chloride (Normal Saline) 1,000 mls @ 999 mls/hr IV ASDIRECTED [facility] Last Admin: 03/23/19 00:45 Dose: 999 mls/hr Sodium Chloride (Normal Saline) 1,000 mls @ 999 mls/hr IV ASDIRECTED ALEX Assessment/Plan Comment:: ASSESSMENT AND PLAN - chief complaint: confusion This is a 63 year old female present to the ER via EMS, reports she called the ambulance due to severe leg cramps. The EMS noted her to be confused rambling speech, paranoid, frequent yelling out in pain. unable to obtain history of present illness from Ms. Fairbanks. current history:-Suboxone patient, psych medication ER evaluation; CBC normal, CMP cr 1. 4, UA normal, UDS + for oxycodone, ETOH level <3, HEAD CT normal will plan to admit Observation status tonight and re-evaluate in am. Confusion -IV fluids NS 125ml/hr -IV Ativan 1 mg every 4 hours prn confusion -CIWAA protocol Opiate Addiction -Suboxone as directed Maintenance issues - - DVT prophylaxis - ambulate - GI prophylaxis - PPI - Nutrition - regular - Daly catheter - not indicated CODE STATUS - full Observation status - do not expect more than 2 night hospital stay for evaluation and treatment of this medical condition Disposition - anticipate discharge home after the hospital stay Primary care physician - Dr. Blackmon Hospitalist - Hugh Evans M.D. - Mortality Measure Prognosis:: Good
[2019-03-23] MEDS ORDERED: Ibuprofen 800 MG Tab PO PRN (03:16)
[2019-03-23] MEDS ORDERED: Promethazine 6.25 MG in Sodium Chloride 0.9% 50 ML IV PRN (03:16)
[2019-03-23] MEDS ORDERED: Albuterol 0.083% 2.5 MG/3 ML Neb Soln NEB PRN (03:16)
[2019-03-23] MEDS ORDERED: Docusate Sodium 100 MG Cap PO PRN (03:16)
[2019-03-23] MEDS ORDERED: Ketorolac 30 MG/ML SDV IVPUSH PRN (03:16)
[2019-03-23] MEDS: Sodium Chloride 0.9% 1,000 ML IV SCH ×2 (03:28→10:38)
[2019-03-23] MEDS: Pantoprazole 40 MG Tab.CR PO SCH ×2 (06:26→09:27)
[2019-03-23] MEDS ORDERED: traZODone 50 MG Tab PO SCH (09:00)
[2019-03-23] MEDS ORDERED: NALOXONE HCL PO SCH ×2 (09:00→14:00)
[2019-03-23] MEDS ORDERED: BUPRENORPHINE HCL PO SCH ×2 (09:00→14:00)
[2019-03-23] MEDS ORDERED: [UNRECOGNIZED DRUG - OTHER] PO SCH ×2 (09:00→14:00)
[2019-03-23] MEDS: Venlafaxine 75 MG Cap.ER PO SCH (09:27)
[2019-03-23] MEDS: buPROPion 150 MG Tab.ER PO SCH (09:27)
[2019-03-23] MEDS: ClonazePAM 1 MG Tab PO SCH ×3 (09:27→15:14)
[2019-03-23] MEDS: LORazepam 2 MG/ML SDV IVPUSH PRN (13:45)
[2019-03-23] MEDS: Ondansetron 4 MG Tab.DIS PO PRN ×2 (13:45→19:27)
[2019-03-23] MEDS: BUPRENORPHINE PO SCH ×3 (15:09→21:55)
[2019-03-23] MEDS: NALOXONE PO SCH ×3 (15:09→21:55)
--- NOTE | 2019-03-23 16:36 | PCM.PN ---
- General Info Date of Service: 03/23/19 Subjective Update: No acute events since admission. Patient remains somnolent and will wake up for only a short time before falling back asleep. Vital signs have been stable. She has had several episodes of loose stools. She does complain of mild lower abdominal pain. Because of her somnolence she is not able to further describe this pain. - Review of Systems General: Denies: Fever Gastrointestinal: Reports: Diarrhea - Patient Data Vitals - Most Recent: Last Vital Signs Temp 36.5 C 03/23/19 15:00 Pulse 89 03/23/19 15:00 Resp 16 03/23/19 11:45 BP 150/92 H 03/23/19 15:00 Pulse Ox 98 03/23/19 07:59 Weight - Most Recent: 62.7 kg I&O - Last 24 Hours: Intake & Output 03/23/19 03/23/19 03/23/19 06:59 14:59 22:59 Intake Total 312 240 Output Total 200 500 Balance 112 -260 Lab Results Last 24 Hours: Laboratory Results - last 24 hr 03/22/19 03/22/19 03/22/19 Range/Units 23:04 23:05 23:15 WBC 11.2 H (4.5-11.0) K/uL RBC 5.03 (3.30-5.50) M/uL Hgb 14.4 (12.0-15.0) g/dL Hct 44.7 (36.0-48.0) % MCV 89 (80-98) fL MCH 29 (27-31) pg MCHC 32 (32-36) % Plt Count 369 (150-400) K/uL Neut % (Auto) 71 H (36-66) % Lymph % (Auto) 20 L (24-44) % [place] % (Auto) 6 (2-6) % Eos % (Auto) 2 (2-4) % Baso % (Auto) 0 (0-1) % Sodium (140-148) mmol/L Potassium (3.6-5.2) mmol/L Chloride (100-108) mmol/L Carbon Dioxide (21-32) mmol/L Anion Gap (5.0-14.0) mmol/L BUN (7-18) mg/dL Creatinine (0.6-1.0) mg/dL Est Cr Clr Drug Dosing mL/min Estimated GFR (MDRD) (>60) Glucose (74-106) mg/dL Lactic Acid (0.7-2.1) mmol/L Calcium (8.5-10.1) mg/dL Total Bilirubin (0.2-1.0) mg/dL AST (15-37) U/L ALT (12-78) U/L Alkaline Phosphatase (46-116) U/L Total Protein (6.4-8.2) g/dL Albumin (3.4-5.0) g/dL Globulin (2.3-3.5) g/dL Albumin/Globulin Ratio (1.2-2.2) Urine Color Yellow (YELLOW) Urine Appearance Clear (CLEAR) Urine pH 5.5 (5.0-8.0) Ur Specific [place] 1.025 (1.008-1.030) Urine Protein Negative (NEGATIVE) mg/dL Urine Glucose (UA) Normal (NEGATIVE) mg/dL Urine Ketones Negative (NEGATIVE) mg/dL Urine Occult Blood Trace (NEGATIVE) Urine Nitrite Negative (NEGATIVE) Urine Bilirubin Negative (NEGATIVE) Urine Urobilinogen Normal (0.2-1.0) EU/dL Ur Leukocyte Esterase Negative (NEGATIVE) Urine RBC 0-5 (0-5) Urine WBC 0-5 (0-5) Ur Epithelial Cells Few Amorphous Sediment Few Urine Bacteria Few Urine Mucus Not seen Urine Opiates Screen Negative (NEGATIVE) Ur Oxycodone Screen Presumptive positive H (NEGATIVE) Urine Methadone Screen Negative (NEGATIVE) Ur Propoxyphene Screen Negative (NEGATIVE) Ur Barbiturates Screen Negative (NEGATIVE) Ur Tricyclics Screen Negative (NEGATIVE) Ur Phencyclidine Scrn Negative (NEGATIVE) Ur Amphetamine Screen Negative (NEGATIVE) U Methamphetamines Scrn Negative (NEGATIVE) Urine MDMA Screen Negative (NEGATIVE) U Benzodiazepines Scrn Negative (NEGATIVE) U Cocaine Metab Screen Negative (NEGATIVE) U Marijuana (THC) Screen Negative (NEGATIVE) Ethyl Alcohol mg/dL 03/22/19 03/22/19 03/23/19 Range/Units 23:15 23:15 11:22 WBC 15.5 H (4.5-11.0) K/uL RBC 5.52 H (3.30-5.50) M/uL Hgb 15.8 H (12.0-15.0) g/dL Hct 47.8 (36.0-48.0) % MCV 87 (80-98) fL MCH 29 (27-31) pg MCHC 33 (32-36) % Plt Count 443 H (150-400) K/uL Neut % (Auto) 86 H (36-66) % Lymph % (Auto) 11 L (24-44) % [place] % (Auto) 3 (2-6) % Eos % (Auto) 0 L (2-4) % Baso % (Auto) 0 (0-1) % Sodium 140 (140-148) mmol/L Potassium 3.8 (3.6-5.2) mmol/L Chloride 103 (100-108) mmol/L Carbon Dioxide 28 (21-32) mmol/L Anion Gap 9.1 (5.0-14.0) mmol/L BUN 15 (7-18) mg/dL Creatinine 1.6 H D (0.6-1.0) mg/dL Est Cr Clr Drug Dosing 29.20 mL/min Estimated GFR (MDRD) 33 L (>60) Glucose 78 (74-106) mg/dL Lactic Acid (0.7-2.1) mmol/L Calcium 9.3 (8.5-10.1) mg/dL Total Bilirubin 0.2 (0.2-1.0) mg/dL AST 17 (15-37) U/L ALT 21 (12-78) U/L Alkaline Phosphatase 162 H (46-116) U/L Total Protein 7.5 (6.4-8.2) g/dL Albumin 3.9 (3.4-5.0) g/dL Globulin 3.6 H (2.3-3.5) g/dL Albumin/Globulin Ratio 1.1 L (1.2-2.2) Urine Color (YELLOW) Urine Appearance (CLEAR) Urine pH (5.0-8.0) Ur Specific [place] (1.008-1.030) Urine Protein (NEGATIVE) mg/dL Urine Glucose (UA) (NEGATIVE) mg/dL Urine Ketones (NEGATIVE) mg/dL Urine Occult Blood (NEGATIVE) Urine Nitrite (NEGATIVE) Urine Bilirubin (NEGATIVE) Urine Urobilinogen (0.2-1.0) EU/dL Ur Leukocyte Esterase (NEGATIVE) Urine RBC (0-5) Urine WBC (0-5) Ur Epithelial Cells Amorphous Sediment Urine Bacteria Urine Mucus Urine Opiates Screen (NEGATIVE) Ur Oxycodone Screen (NEGATIVE) Urine Methadone Screen (NEGATIVE) Ur Propoxyphene Screen (NEGATIVE) Ur Barbiturates Screen (NEGATIVE) Ur Tricyclics Screen (NEGATIVE) Ur Phencyclidine Scrn (NEGATIVE) Ur Amphetamine Screen (NEGATIVE) U Methamphetamines Scrn (NEGATIVE) Urine MDMA Screen (NEGATIVE) U Benzodiazepines Scrn (NEGATIVE) U Cocaine Metab Screen (NEGATIVE) U Marijuana (THC) Screen (NEGATIVE) Ethyl Alcohol < 3 mg/dL 03/23/19 Range/Units 11:22 WBC (4.5-11.0) K/uL RBC (3.30-5.50) M/uL Hgb (12.0-15.0) g/dL Hct (36.0-48.0) % MCV (80-98) fL MCH (27-31) pg MCHC (32-36) % Plt Count (150-400) K/uL Neut % (Auto) (36-66) % Lymph % (Auto) (24-44) % [place] % (Auto) (2-6) % Eos % (Auto) (2-4) % Baso % (Auto) (0-1) % Sodium (140-148) mmol/L Potassium (3.6-5.2) mmol/L Chloride (100-108) mmol/L Carbon Dioxide (21-32) mmol/L Anion Gap (5.0-14.0) mmol/L BUN (7-18) mg/dL Creatinine (0.6-1.0) mg/dL Est Cr Clr Drug Dosing mL/min Estimated GFR (MDRD) (>60) Glucose (74-106) mg/dL Lactic Acid 1.4 (0.7-2.1) mmol/L Calcium (8.5-10.1) mg/dL Total Bilirubin (0.2-1.0) mg/dL AST (15-37) U/L ALT (12-78) U/L Alkaline Phosphatase (46-116) U/L Total Protein (6.4-8.2) g/dL Albumin (3.4-5.0) g/dL Globulin (2.3-3.5) g/dL Albumin/Globulin Ratio (1.2-2.2) Urine Color (YELLOW) Urine Appearance (CLEAR) Urine pH (5.0-8.0) Ur Specific [place] (1.008-1.030) Urine Protein (NEGATIVE) mg/dL Urine Glucose (UA) (NEGATIVE) mg/dL Urine Ketones (NEGATIVE) mg/dL Urine Occult Blood (NEGATIVE) Urine Nitrite (NEGATIVE) Urine Bilirubin (NEGATIVE) Urine Urobilinogen (0.2-1.0) EU/dL Ur Leukocyte Esterase (NEGATIVE) Urine RBC (0-5) Urine WBC (0-5) Ur Epithelial Cells Amorphous Sediment Urine Bacteria Urine Mucus Urine Opiates Screen (NEGATIVE) Ur Oxycodone Screen (NEGATIVE) Urine Methadone Screen (NEGATIVE) Ur Propoxyphene Screen (NEGATIVE) Ur Barbiturates Screen (NEGATIVE) Ur Tricyclics Screen (NEGATIVE) Ur Phencyclidine Scrn (NEGATIVE) Ur Amphetamine Screen (NEGATIVE) U Methamphetamines Scrn (NEGATIVE) Urine MDMA Screen (NEGATIVE) U Benzodiazepines Scrn (NEGATIVE) U Cocaine Metab Screen (NEGATIVE) U Marijuana (THC) Screen (NEGATIVE) Ethyl Alcohol mg/dL Med Orders - Current: Current Medications Acetaminophen (Tylenol) 650 mg PO Q4H PRN PRN Reason: Pain (Mild 1-3)/fever Albuterol (Proventil Neb Soln) 2.5 mg NEB Q4H PRN PRN Reason: Shortness Of Breath/wheezing Bupropion HCl (Wellbutrin Xl) 150 mg PO DAILY [facility] Last Admin: 03/23/19 09:27 Dose: 150 mg Clonazepam (Klonopin) 1 mg PO TID [facility] Last Admin: 03/23/19 15:14 Dose: Not Given Docusate Sodium (Colace) 100 mg PO BID PRN PRN Reason: Constipation Promethazine HCl 6.25 mg/ (Sodium Chloride) 50.25 mls @ 200 mls/hr IV Q6H PRN PRN Reason: Nausea/Vomiting Last Admin: 03/23/19 06:33 Dose: 200 mls/hr Sodium Chloride (Normal Saline) 1,000 mls @ 125 mls/hr IV ASDIRECTED [facility] Last Admin: 03/23/19 10:38 Dose: 125 mls/hr Lorazepam (Ativan) 1 mg IVPUSH Q4H PRN PRN Reason: Agitation Last Admin: 03/23/19 13:45 Dose: 1 mg Ondansetron HCl (Zofran Odt) 4 mg PO Q6H PRN PRN Reason: Nausea able to take PO Last Admin: 03/23/19 13:45 Dose: 4 mg Pantoprazole Sodium (Protonix) 40 mg PO ACBREAKFAST [facility] Last Admin: 03/23/19 09:27 Dose: 40 mg Buprenor/Nalox 12mg/ (3mg Sl Film (Ptom)) 0 each PO TID [facility] Last Admin: 03/23/19 15:14 Dose: Not Given Trazodone HCl (Trazodone) 50 mg PO BEDTIME [facility] Venlafaxine HCl (Effexor Xr) 300 mg PO DAILY [facility] Last Admin: 03/23/19 09:27 Dose: 300 mg Discontinued Medications Al Hydroxide/Mg Hydroxide 15 (ml/ Lidocaine HCl 15 ml) 0 ml PO ONETIME ONE Stop: 03/23/19 00:53 Last Admin: 03/23/19 00:56 Dose: 30 ml Sodium Chloride (Normal Saline) 1,000 mls @ 999 mls/hr IV ASDIRECTED [facility] Last Admin: 03/23/19 00:45 Dose: 999 mls/hr Sodium Chloride (Normal Saline) 1,000 mls @ 999 mls/hr IV ASDIRECTED [facility] Ibuprofen (Motrin) 800 mg PO Q6H PRN PRN Reason: Pain (mild 1-3) Ketorolac Tromethamine (Toradol) 30 mg IVPUSH Q6H PRN PRN Reason: Pain (moderate 4-6) Stop: 03/28/19 03:17 Lorazepam (Ativan) 2 mg IVPUSH ONETIME ONE Stop: 03/23/19 01:15 Last Admin: 03/23/19 01:26 Dose: 2 mg Non-Formulary Medication (Buprenorphine Hcl/Naloxone Hcl [Buprenorp-Nalox 8-2 Mg Sl Film]) 1 film PO DAILY [facility] Last Admin: 03/23/19 10:55 Dose: Not Given Trazodone HCl (Trazodone) 50 mg PO DAILY [facility] Last Admin: 03/23/19 09:27 Dose: Not Given - Exam Quality Assessment: No: Supplemental Oxygen General: No Acute Distress, Lethargic. No: Alert Lungs: Clear to Auscultation, Normal Respiratory Effort Cardiovascular: Regular Rate, Regular Rhythm GI/Abdominal Exam: Soft, Non-Tender, No Distention Extremities: No Pedal Edema Skin: Warm, Dry Psy/Mental Status: No: Alert, Agitated - Problem List Review Problem List Initiated/Reviewed/Updated: Yes - My Orders Last 24 Hours: My Active Orders 03/23/19 11:22 BASIC METABOLIC PANEL,BMP [CHEM] Urgent CRP [C-REACTIVE PROTEIN] [CHEM] Urgent 03/23/19 12:14 CLOSTRIDIUM DIFFICILE BY PCR [RM] Routine Isolation [COMM] Stat 03/23/19 14:00 Patient's Own Medication [Ptom] 0 each PO TID 03/23/19 15:38 Antiembolic Devices [RC] .Routine SCD [Sequential Compression Device] [OM.PC] Routine 03/24/19 05:00 BASIC METABOLIC PANEL,BMP [CHEM] Timed CBC W/O DIFF,HEMOGRAM [HEME] Timed (1) - Plan Plan:: ASSESSMENT AND PLAN - Decreased level of consciousness - vitals stable but patient very lethargic. Kidney function decreased from baseline. She has had some diarrhea but does not appear to have any abdominal pain. No fevers but she does have leukocytosis. Lactic acid level normal. No evidence for alcohol withdrawal. I suspect this may be education accumulation leading to decreased level of consciousness. She may have a viral enteritis. -IV fluids NS 125ml/hr -Follow-up repeat chemistry panel and CRP -Consider workup for diarrhea if indicated Opiate dependence - -Suboxone as directed Maintenance issues - - DVT prophylaxis - ambulate - GI prophylaxis - PPI - Nutrition - regular when she wakes up - Daly catheter - not indicated CODE STATUS - full Observation status - do not expect more than 2 night hospital stay for evaluation and treatment of this medical condition Disposition - anticipate discharge home after the hospital stay Hugh Evans M.D.
[2019-03-23] MEDS: Acetaminophen 325 MG Tab PO PRN (19:26)
[2019-03-23] MEDS: traZODone 50 MG Tab PO SCH (20:00)
[2019-03-24] MEDS: Acetaminophen/oxyCODONE 325-5 MG Tab PO PRN ×2 (00:33→06:39)
[2019-03-24] MEDS: BUPRENORPHINE PO SCH ×4 (03:19→20:08)
[2019-03-24] MEDS: NALOXONE PO SCH ×4 (03:19→20:08)
[2019-03-24] MEDS: Sodium Chloride 0.9% 1,000 ML IV SCH ×2 (03:42→11:56)
[2019-03-24] MEDS ORDERED: Potassium Chloride 20 MEQ in Premix Bag 1 BAG IV SCH (05:59)
[2019-03-24] MEDS: Pantoprazole 40 MG Tab.CR PO SCH (07:26)
[2019-03-24] MEDS ORDERED: Potassium Chloride 20 MEQ, Lidocaine 1% 2 ML in Sodium Chloride 0.9% 100 ML IV ONE (08:30)
[2019-03-24] MEDS: buPROPion 150 MG Tab.ER PO SCH (09:23)
[2019-03-24] MEDS: Venlafaxine 75 MG Cap.ER PO SCH (09:23)
--- NOTE | 2019-03-24 10:08 | PCM.PN ---
- General Info Date of Service: 03/24/19 Subjective Update: No acute events overnight. Patient is more alert and interactive. No complaints of headache or shortness of breath. She does endorse mild generalized abdominal pain as well as some nausea and diarrhea. She has had several episodes of watery diarrhea. She did have some emesis yesterday. No fevers. Inflammatory markers normal. Clinically improving and creatinine back to baseline. Potassium level was low this morning. Functional Status: Reports: Pain Controlled - Review of Systems General: Reports: Weakness. Denies: Fever Gastrointestinal: Reports: Diarrhea - Patient Data Vitals - Most Recent: Last Vital Signs Temp 36.7 C 03/24/19 07:00 Pulse 76 03/24/19 07:00 Resp 18 03/24/19 07:00 BP 101/62 03/24/19 07:00 Pulse Ox 93 L 03/24/19 07:00 Weight - Most Recent: 62.7 kg I&O - Last 24 Hours: Intake & Output 03/23/19 03/24/19 03/24/19 22:59 06:59 14:59 Intake Total 1058 2163 Output Total 450 Balance 1058 1713 Lab Results Last 24 Hours: Laboratory Results - last 24 hr 03/23/19 03/23/19 03/23/19 Range/Units 11:22 11:22 11:22 WBC 15.5 H (4.5-11.0) K/uL RBC 5.52 H (3.30-5.50) M/uL Hgb 15.8 H (12.0-15.0) g/dL Hct 47.8 (36.0-48.0) % MCV 87 (80-98) fL MCH 29 (27-31) pg MCHC 33 (32-36) % Plt Count 443 H (150-400) K/uL Neut % (Auto) 86 H (36-66) % Lymph % (Auto) 11 L (24-44) % [place] % (Auto) 3 (2-6) % Eos % (Auto) 0 L (2-4) % Baso % (Auto) 0 (0-1) % Sodium (140-148) mmol/L Potassium (3.6-5.2) mmol/L Chloride (100-108) mmol/L Carbon Dioxide (21-32) mmol/L Anion Gap (5.0-14.0) mmol/L BUN (7-18) mg/dL Creatinine (0.6-1.0) mg/dL Est Cr Clr Drug Dosing mL/min Estimated GFR (MDRD) (>60) Glucose (74-106) mg/dL Lactic Acid 1.4 (0.7-2.1) mmol/L Calcium (8.5-10.1) mg/dL C-Reactive Protein (0.0-0.3) mg/dL 03/24/19 03/24/19 Range/Units 05:00 05:00 WBC 11.9 H (4.5-11.0) K/uL RBC 4.62 (3.30-5.50) M/uL Hgb 13.1 D (12.0-15.0) g/dL Hct 41.2 (36.0-48.0) % MCV 89 (80-98) fL MCH 28 (27-31) pg MCHC 32 (32-36) % Plt Count 360 (150-400) K/uL Neut % (Auto) (36-66) % Lymph % (Auto) (24-44) % [place] % (Auto) (2-6) % Eos % (Auto) (2-4) % Baso % (Auto) (0-1) % Sodium 139 L (140-148) mmol/L Potassium 2.8 L* (3.6-5.2) mmol/L Chloride 106 (100-108) mmol/L Carbon Dioxide 23 (21-32) mmol/L Anion Gap 12.8 (5.0-14.0) mmol/L BUN 10 (7-18) mg/dL Creatinine 0.7 D (0.6-1.0) mg/dL Est Cr Clr Drug Dosing 66.17 mL/min Estimated GFR (MDRD) > 60 (>60) Glucose 106 (74-106) mg/dL Lactic Acid (0.7-2.1) mmol/L Calcium 7.4 L D (8.5-10.1) mg/dL C-Reactive Protein (0.0-0.3) mg/dL Med Orders - Current: Current Medications Acetaminophen (Tylenol) 650 mg PO Q4H PRN PRN Reason: Pain (Mild 1-3)/fever Last Admin: 03/23/19 19:26 Dose: 650 mg Albuterol (Proventil Neb Soln) 2.5 mg NEB Q4H PRN PRN Reason: Shortness Of Breath/wheezing Bupropion HCl (Wellbutrin Xl) 150 mg PO DAILY [facility] Last Admin: 03/24/19 09:23 Dose: 150 mg Clonazepam (Klonopin) 1 mg PO TID [facility] Last Admin: 03/23/19 15:14 Dose: Not Given Docusate Sodium (Colace) 100 mg PO BID PRN PRN Reason: Constipation Promethazine HCl 6.25 mg/ (Sodium Chloride) 50.25 mls @ 200 mls/hr IV Q6H PRN PRN Reason: Nausea/Vomiting Last Admin: 03/23/19 06:33 Dose: 200 mls/hr Potassium Chloride 20 meq/Lidocaine HCl 2 ml/ Sodium Chloride 112 mls @ 56 mls/ hr IV ONETIME ONE Stop: 03/24/19 10:29 Last Admin: 03/24/19 09:30 Dose: 56 mls/hr Lorazepam (Ativan) 1 mg IVPUSH Q4H PRN PRN Reason: Agitation Last Admin: 03/23/19 13:45 Dose: 1 mg Ondansetron HCl (Zofran Odt) 4 mg PO Q6H PRN PRN Reason: Nausea able to take PO Last Admin: 03/23/19 19:27 Dose: 4 mg Pantoprazole Sodium (Protonix) 40 mg PO ACBREAKFAST [facility] Last Admin: 03/24/19 07:26 Dose: 40 mg Buprenor/Nalox 12mg/ (3mg Sl Film (Ptom)) 0 each PO TID [facility] Last Admin: 03/24/19 09:24 Dose: 1 each Trazodone HCl (Trazodone) 50 mg PO BEDTIME [facility] Last Admin: 03/23/19 20:00 Dose: 50 mg Venlafaxine HCl (Effexor Xr) 300 mg PO DAILY [facility] Last Admin: 03/24/19 09:23 Dose: 300 mg Discontinued Medications Al Hydroxide/Mg Hydroxide 15 (ml/ Lidocaine HCl 15 ml) 0 ml PO ONETIME ONE Stop: 03/23/19 00:53 Last Admin: 03/23/19 00:56 Dose: 30 ml Sodium Chloride (Normal Saline) 1,000 mls @ 999 mls/hr IV ASDIRECTED [facility] Last Admin: 03/23/19 00:45 Dose: 999 mls/hr Sodium Chloride (Normal Saline) 1,000 mls @ 999 mls/hr IV ASDIRECTED [facility] Sodium Chloride (Normal Saline) 1,000 mls @ 125 mls/hr IV ASDIRECTED [facility] Last Admin: 03/24/19 03:42 Dose: 125 mls/hr Potassium Chloride 20 meq/ (Premix) 100 mls @ 50 mls/hr IV Q2H [facility] Stop: 03/24/19 09:58 Last Admin: 03/24/19 06:24 Dose: 50 mls/hr Ibuprofen (Motrin) 800 mg PO Q6H PRN PRN Reason: Pain (mild 1-3) Ketorolac Tromethamine (Toradol) 30 mg IVPUSH Q6H PRN PRN Reason: Pain (moderate 4-6) Stop: 03/28/19 03:17 Lidocaine HCl (Xylocaine-Mpf 1%) 5 ml INJECT ONETIME ONE Stop: 03/24/19 06:05 Last Admin: 03/24/19 06:24 Dose: 5 ml Lorazepam (Ativan) 2 mg IVPUSH ONETIME ONE Stop: 03/23/19 01:15 Last Admin: 03/23/19 01:26 Dose: 2 mg Non-Formulary Medication (Buprenorphine Hcl/Naloxone Hcl [Buprenorp-Nalox 8-2 Mg Sl Film]) 1 film PO DAILY [facility] Last Admin: 03/23/19 10:55 Dose: Not Given Oxycodone/Acetaminophen (Percocet 325-5 Mg) 1 tab PO Q4H PRN PRN Reason: Pain Last Admin: 03/24/19 06:39 Dose: 1 tab Trazodone HCl (Trazodone) 50 mg PO DAILY [facility] Last Admin: 03/23/19 09:27 Dose: Not Given - Exam Quality Assessment: No: Supplemental Oxygen General: Alert, Oriented, Cooperative, No Acute Distress Lungs: Clear to Auscultation, Normal Respiratory Effort Cardiovascular: Regular Rate, Regular Rhythm GI/Abdominal Exam: Normal Bowel Sounds, Soft, No Distention, Tender Extremities: No Pedal Edema Skin: Warm, Dry Psy/Mental Status: Alert, Normal Affect - Problem List & Annotations (1) Hypokalemia due to excessive gastrointestinal loss of potassium SNOMED Code(s): 88508891 Code(s): E87.6 - HYPOKALEMIA Status: Acute Current Visit: Yes (2) Acute kidney injury SNOMED Code(s): 56874049, 53520261 Code(s): N17.9 - ACUTE KIDNEY FAILURE, UNSPECIFIED Status: Acute Current Visit: Yes - Problem List Review Problem List Initiated/Reviewed/Updated: Yes - My Orders Last 24 Hours: My Active Orders 03/23/19 12:14 CLOSTRIDIUM DIFFICILE BY PCR [RM] Routine Isolation [COMM] Stat 03/23/19 14:00 Patient's Own Medication [Ptom] 0 each PO TID 03/23/19 15:38 Antiembolic Devices [RC] .Routine SCD [Sequential Compression Device] [OM.PC] Routine 03/24/19 10:05 Sodium Chloride 0.9% [Normal Saline] 1,000 ml IV ASDIRECTED 03/24/19 10:06 Discontinue Telemetry Monitoring [Cardiac Monitoring Discontinue] [RC] Click to Edit Ibuprofen [Motrin] 600 mg PO Q6H PRN 03/25/19 05:00 BASIC METABOLIC PANEL,BMP [CHEM] Timed CBC W/O DIFF,HEMOGRAM [HEME] Timed (1) - Plan Plan:: ASSESSMENT AND PLAN - Decreased level of consciousness - Patient had acute kidney injury and significant dehydration likely leading to accumulation of medications. Doing much better today and is much more alert and interactive. Vitals stable. Viral infection suspected as her cause for diarrhea. -Gentle IV fluids throughout the day until she is eating better -Clear liquids, advance as tolerated Acute kidney injury - significant elevation of creatinine from baseline which is now normalized. -Continue gentle hydration Hypokalemia - significant drop in potassium likely due to gastrointestinal losses. -Replace this morning and recheck this afternoon Opiate dependence - -Suboxone as directed Maintenance issues - - DVT prophylaxis - ambulate - GI prophylaxis - PPI - Nutrition - advance as tolerated Observation status - do not expect more than 2 night hospital stay for evaluation and treatment of this medical condition Disposition - anticipate discharge home after the hospital stay Hugh Evans M.D.
[2019-03-24] MEDS: Acetaminophen 325 MG Tab PO PRN (11:41)
[2019-03-24] MEDS ORDERED: Potassium Chloride 20 MEQ Tab.ER PO ONE (16:30)
[2019-03-24] MEDS: Ibuprofen 600 MG Tab PO PRN (20:07)
[2019-03-24] MEDS: ClonazePAM 1 MG Tab PO SCH (20:07)
[2019-03-24] MEDS: traZODone 50 MG Tab PO SCH (20:08)
[2019-03-25] MEDS: Ibuprofen 600 MG Tab PO PRN ×2 (01:40→07:55)
[2019-03-25] MEDS: LORazepam 2 MG/ML SDV IVPUSH PRN ×4 (01:59→18:14)
[2019-03-25] MEDS: Ondansetron 4 MG Tab.DIS PO PRN (05:47)
[2019-03-25] MEDS: Sodium Chloride 0.9% 1,000 ML IV SCH (05:52)
[2019-03-25] MEDS: Pantoprazole 40 MG Tab.CR PO SCH (07:55)
[2019-03-25] MEDS: NALOXONE PO SCH ×3 (08:47→21:41)
[2019-03-25] MEDS: BUPRENORPHINE PO SCH ×3 (08:47→21:41)
[2019-03-25] MEDS: Venlafaxine 75 MG Cap.ER PO SCH (08:50)
[2019-03-25] MEDS: buPROPion 150 MG Tab.ER PO SCH (08:50)
[2019-03-25] MEDS: ClonazePAM 1 MG Tab PO SCH ×3 (08:56→21:46)
--- NOTE | 2019-03-25 13:30 | PCM.PN ---
- General Info Date of Service: 03/25/19 Subjective Update: there were no acute events overnight. Patient still has some nausea and some diarrhea with only one episode today. She still has very mild generalized abdominal pain. Tolerating clear liquids so far. She has not had any fevers. White blood cell count has normalized. Potassium level is normal. Functional Status: Reports: Pain Controlled, Tolerating Diet - Review of Systems General: Denies: Fever Gastrointestinal: Reports: Abdominal Pain, Diarrhea - Patient Data Vitals - Most Recent: Last Vital Signs Temp 36.5 C 03/25/19 10:39 Pulse 61 03/25/19 10:39 Resp 18 03/25/19 10:39 BP 100/62 03/25/19 10:39 Pulse Ox 90 L 03/25/19 10:39 Weight - Most Recent: 62.7 kg I&O - Last 24 Hours: Intake & Output 03/24/19 03/25/19 03/25/19 22:59 06:59 14:59 Intake Total 931 653 180 Balance 931 653 180 Lab Results Last 24 Hours: Laboratory Results - last 24 hr 03/25/19 03/25/19 Range/Units 05:00 05:00 WBC 7.3 (4.5-11.0) K/uL RBC 3.84 (3.30-5.50) M/uL Hgb 10.9 L D (12.0-15.0) g/dL Hct 36.3 (36.0-48.0) % MCV 95 (80-98) fL MCH 28 (27-31) pg MCHC 30 L (32-36) % Plt Count 276 (150-400) K/uL Sodium 142 (140-148) mmol/L Potassium 4.1 (3.6-5.2) mmol/L Chloride 109 H (100-108) mmol/L Carbon Dioxide 24 (21-32) mmol/L Anion Gap 13.1 (5.0-14.0) mmol/L BUN 9 (7-18) mg/dL Creatinine 0.7 (0.6-1.0) mg/dL Est Cr Clr Drug Dosing 66.17 mL/min Estimated GFR (MDRD) > 60 (>60) Glucose 89 (74-106) mg/dL Calcium 7.6 L (8.5-10.1) mg/dL Med Orders - Current: Current Medications Acetaminophen (Tylenol) 650 mg PO Q4H PRN PRN Reason: Pain (Mild 1-3)/fever Last Admin: 03/24/19 11:41 Dose: 650 mg Albuterol (Proventil Neb Soln) 2.5 mg NEB Q4H PRN PRN Reason: Shortness Of Breath/wheezing Bupropion HCl (Wellbutrin Xl) 150 mg PO DAILY [facility] Last Admin: 03/25/19 08:50 Dose: 150 mg Clonazepam (Klonopin) 1 mg PO TID [facility] Last Admin: 03/25/19 08:56 Dose: 1 mg Docusate Sodium (Colace) 100 mg PO BID PRN PRN Reason: Constipation Promethazine HCl 6.25 mg/ (Sodium Chloride) 50.25 mls @ 200 mls/hr IV Q6H PRN PRN Reason: Nausea/Vomiting Last Admin: 03/23/19 06:33 Dose: 200 mls/hr Ibuprofen (Motrin) 600 mg PO Q6H PRN PRN Reason: Pain Last Admin: 03/25/19 07:55 Dose: 600 mg Lorazepam (Ativan) 1 mg IVPUSH Q4H PRN PRN Reason: Agitation Last Admin: 03/25/19 05:47 Dose: 1 mg Ondansetron HCl (Zofran Odt) 4 mg PO Q6H PRN PRN Reason: Nausea able to take PO Last Admin: 03/25/19 05:47 Dose: 4 mg Pantoprazole Sodium (Protonix) 40 mg PO ACBREAKFAST [facility] Last Admin: 03/25/19 07:55 Dose: 40 mg Buprenor/Nalox 12mg/ (3mg Sl Film (Ptom)) 0 each PO TID [facility] Last Admin: 03/25/19 08:47 Dose: 1 each Trazodone HCl (Trazodone) 50 mg PO BEDTIME [facility] Last Admin: 03/24/19 20:08 Dose: 50 mg Venlafaxine HCl (Effexor Xr) 300 mg PO DAILY [facility] Last Admin: 03/25/19 08:50 Dose: 300 mg Discontinued Medications Al Hydroxide/Mg Hydroxide 15 (ml/ Lidocaine HCl 15 ml) 0 ml PO ONETIME ONE Stop: 03/23/19 00:53 Last Admin: 03/23/19 00:56 Dose: 30 ml Sodium Chloride (Normal Saline) 1,000 mls @ 999 mls/hr IV ASDIRECTED [facility] Last Admin: 03/23/19 00:45 Dose: 999 mls/hr Sodium Chloride (Normal Saline) 1,000 mls @ 999 mls/hr IV ASDIRECTED [facility] Sodium Chloride (Normal Saline) 1,000 mls @ 125 mls/hr IV ASDIRECTED [facility] Last Admin: 03/24/19 03:42 Dose: 125 mls/hr Potassium Chloride 20 meq/ (Premix) 100 mls @ 50 mls/hr IV Q2H [facility] Stop: 03/24/19 09:58 Last Admin: 03/24/19 06:24 Dose: 50 mls/hr Potassium Chloride 20 meq/Lidocaine HCl 2 ml/ Sodium Chloride 112 mls @ 56 mls/ hr IV ONETIME ONE Stop: 03/24/19 10:29 Last Admin: 03/24/19 09:30 Dose: 56 mls/hr Sodium Chloride (Normal Saline) 1,000 mls @ 50 mls/hr IV ASDIRECTED [facility] Last Admin: 03/25/19 05:52 Dose: 50 mls/hr Ibuprofen (Motrin) 800 mg PO Q6H PRN PRN Reason: Pain (mild 1-3) Ketorolac Tromethamine (Toradol) 30 mg IVPUSH Q6H PRN PRN Reason: Pain (moderate 4-6) Stop: 03/28/19 03:17 Lidocaine HCl (Xylocaine-Mpf 1%) 5 ml INJECT ONETIME ONE Stop: 03/24/19 06:05 Last Admin: 03/24/19 06:24 Dose: 5 ml Lorazepam (Ativan) 2 mg IVPUSH ONETIME ONE Stop: 03/23/19 01:15 Last Admin: 03/23/19 01:26 Dose: 2 mg Non-Formulary Medication (Buprenorphine Hcl/Naloxone Hcl [Buprenorp-Nalox 8-2 Mg Sl Film]) 1 film PO DAILY [facility] Last Admin: 03/23/19 10:55 Dose: Not Given Oxycodone/Acetaminophen (Percocet 325-5 Mg) 1 tab PO Q4H PRN PRN Reason: Pain Last Admin: 03/24/19 06:39 Dose: 1 tab Potassium Chloride (Klor-Con M20) 40 meq PO ONETIME ONE Stop: 03/24/19 16:31 Last Admin: 03/24/19 16:44 Dose: 40 meq Trazodone HCl (Trazodone) 50 mg PO DAILY [facility] Last Admin: 03/23/19 09:27 Dose: Not Given - Exam Quality Assessment: No: Supplemental Oxygen General: Alert, Oriented, Cooperative, No Acute Distress Lungs: Normal Respiratory Effort GI/Abdominal Exam: Soft, No Distention Extremities: No Pedal Edema Psy/Mental Status: Alert, Normal Affect - Problem List & Annotations (1) Hypokalemia due to excessive gastrointestinal loss of potassium SNOMED Code(s): 47213023 Code(s): E87.6 - HYPOKALEMIA Status: Acute Current Visit: Yes (2) Acute kidney injury SNOMED Code(s): 13820845, 48328241 Code(s): N17.9 - ACUTE KIDNEY FAILURE, UNSPECIFIED Status: Acute Current Visit: Yes - Problem List Review Problem List Initiated/Reviewed/Updated: Yes - My Orders Last 24 Hours: My Active Orders 03/25/19 13:28 Convert IV to Saline Lock [OM.PC] Routine 03/26/19 05:00 BASIC METABOLIC PANEL,BMP [CHEM] Timed - Plan Plan:: ASSESSMENT AND PLAN - Decreased level of consciousness - Patient had acute kidney injury and significant dehydration likely leading to accumulation of medications. back to normal at this time. -Gentle IV fluids throughout the day until she is eating better -Clear liquids, advance as tolerated Viral gastroenteritis - likely source of nausea, vomiting and diarrhea. No evidence for bacterial infection. Clinically improving but still weak and not eating well. -Symptomatic management Acute kidney injury - significant elevation of creatinine from baseline which is now normalized. -Continue gentle hydration Hypokalemia - potassium back to normal. -Replace this morning and recheck this afternoon Opiate dependence - -Suboxone as directed Maintenance issues - - DVT prophylaxis - ambulate - GI prophylaxis - PPI - Nutrition - advance as tolerated Observation status - do not expect more than 2 night hospital stay for evaluation and treatment of this medical condition Disposition - anticipate discharge home after the hospital stay, likely tomorrow with ongoing nausea and poor intake Hugh Evans M.D.
[2019-03-25] MEDS: Benzocaine/Cetylpyridinium/Menthol Lozenge MUCMEM SCH ×2 (18:47→21:43)
[2019-03-25] MEDS: traZODone 50 MG Tab PO SCH (21:41)
[2019-03-26] MEDS: Ibuprofen 600 MG Tab PO PRN ×2 (01:03→06:41)
[2019-03-26] MEDS: LORazepam 2 MG/ML SDV IVPUSH PRN (01:04)
[2019-03-26] MEDS: Pantoprazole 40 MG Tab.CR PO SCH (07:12)
[2019-03-26] MEDS: BUPRENORPHINE PO SCH (08:03)
[2019-03-26] MEDS: Venlafaxine 75 MG Cap.ER PO SCH (08:03)
[2019-03-26] MEDS: NALOXONE PO SCH (08:03)
[2019-03-26] MEDS: buPROPion 150 MG Tab.ER PO SCH (08:04)
[2019-03-26] MEDS: ClonazePAM 1 MG Tab PO SCH (08:07)
[2019-03-26] MEDS: Benzocaine/Cetylpyridinium/Menthol Lozenge MUCMEM SCH (08:07)
--- NOTE | 2019-03-26 10:50 | PCM.DCSUM1 ---
Discharge Summary - Hospital Course Brief History: 63-year-old female with history of chronic pain on buprenorphine therapy who presented with decreased level of consciousness and diffuse cramping. She was admitted for management of dehydration, acute kidney injury and decreased level of consciousness. Diagnosis: Stroke: No - Discharge Data Discharge Date: 03/26/19 Discharge Disposition: Home, Self-Care 01 Condition: Good - Discharge Diagnosis/Problem(s) (1) Gastroenteritis SNOMED Code(s): 40548540 ICD Code: K52.9 - NONINFECTIVE GASTROENTERITIS AND COLITIS, UNSPECIFIED Status: Acute Current Visit: Yes (2) Hypokalemia due to excessive gastrointestinal loss of potassium SNOMED Code(s): 82485497 ICD Code: E87.6 - HYPOKALEMIA Status: Acute Current Visit: Yes (3) Acute kidney injury SNOMED Code(s): 20309501, 82611662 ICD Code: N17.9 - ACUTE KIDNEY FAILURE, UNSPECIFIED Status: Acute Current Visit: Yes (4) Decreased level of consciousness SNOMED Code(s): 014600657 ICD Code: R40.4 - TRANSIENT ALTERATION OF AWARENESS Status: Acute Current Visit: Yes - Patient Summary/Data Hospital Course: Dorcas presented to the emergency room by ambulance with a chief complaint of diffuse cramping. There is a decreased level of consciousness and confusion noted in the emergency room. Workup in the emergency room revealed mild leukocytosis but otherwise no impressive findings beyond dehydration with decreased kidney function. Initially the cause for her decreased level of consciousness was not entirely clear. The morning after admission her vitals were stable but she continued to be very somnolent and even obtunded. With her significant decline in kidney function from baseline I was suspicious that she had accumulated some of her usual medications and just needed some time to have her kidney function returned to normal before they would clear. She did have several episodes of diarrhea and episodes of vomiting as well during the early part of the hospital stay. Over the next 24 hours her condition improved fairly quickly. Mental status returned to baseline. Vital signs all remained stable. Diarrhea did improve but did not resolve. Vomiting fortunately did resolve. Unfortunately she did develop significant hypokalemia because of the diarrhea. She required aggressive replacement but this did eventually normalize and has remained stable. Her diarrhea has nearly resolved at this point. She has not had any additional vomiting. She's been able to advance her diet. Strength is been improving. She feels back to her usual self. Kidney function is back to normal. I believe she is safe for discharge home at this time. I suspect that the culprit for her difficulties was a viral gastroenteritis leading to significant dehydration, acute kidney injury and medication accumulation in her system. She is safe for outpatient management at this time and will be discharged home without any medication changes. - Patient Instructions Diet: Regular Diet as Tolerated Activity: As Tolerated Showering/Bathing: May Shower Notify Provider of: Fever, Increased Pain, Nausea and/or Vomiting - Discharge Plan *PRESCRIPTION DRUG MONITORING PROGRAM REVIEWED*: No *COPY OF PRESCRIPTION DRUG MONITORING REPORT IN PATIENT MARK: No Home Medications: Home Meds Calcium Acetate [PhosLo] 667 mg PO ASDIRECTED 04/14/18 [History] Omeprazole 40 mg PO DAILY 04/14/18 [History] Venlafaxine [Effexor XR] 300 mg PO DAILY 04/14/18 [History] Zolpidem Tartrate [Ambien] 10 mg PO BEDTIME PRN 04/14/18 [History] clonazePAM [Klonopin] 1 mg PO TID #30 tablet 04/14/18 [Rx] Naltrexone 25 mg PO DAILY 03/22/19 [History] buPROPion [buPROPion XL] 150 mg PO DAILY 03/22/19 [History] clonazePAM [Klonopin] 1 mg PO DAILY 03/22/19 [History] traZODone HCl [Trazodone HCl] 50 mg PO BEDTIME 03/22/19 [History] Buprenorphine HCl/Naloxone HCl [Suboxone 12 mg-3 mg Sl Film] 0.5 strip BUCCAL TID 03/23/19 [History] Oxygen Therapy Mode: Room Air Patient Handouts: Potassium Content of Foods Referrals: Michele Frye MD [Physician] - 04/04/19 10:20 am (Please arrive a5 minutes early to register for your appointment.) - Discharge Summary/Plan Comment DC Time >30 min.: No - Patient Data Vitals - Most Recent: Last Vital Signs Temp 36.2 C 03/26/19 07:00 Pulse 71 03/26/19 07:00 Resp 16 03/26/19 07:00 BP 128/63 03/26/19 07:00 Pulse Ox 90 L 03/26/19 07:00 Weight - Most Recent: 62.7 kg I&O - Last 24 hours: Intake & Output 03/25/19 03/26/19 03/26/19 22:59 06:59 14:59 Intake Total 700 240 Balance 700 240 Lab Results - Last 24 hrs: Laboratory Results - last 24 hr 03/26/19 Range/Units 05:45 Sodium 141 (140-148) mmol/L Potassium 4.3 (3.6-5.2) mmol/L Chloride 107 (100-108) mmol/L Carbon Dioxide 28 (21-32) mmol/L Anion Gap 6.0 (5.0-14.0) mmol/L BUN 11 (7-18) mg/dL Creatinine 0.8 (0.6-1.0) mg/dL Est Cr Clr Drug Dosing 57.90 mL/min Estimated GFR (MDRD) > 60 (>60) Glucose 97 (74-106) mg/dL Calcium 8.4 L (8.5-10.1) mg/dL Med Orders - Current: Current Medications Acetaminophen (Tylenol) 650 mg PO Q4H PRN PRN Reason: Pain (Mild 1-3)/fever Last Admin: 03/24/19 11:41 Dose: 650 mg Albuterol (Proventil Neb Soln) 2.5 mg NEB Q4H PRN PRN Reason: Shortness Of Breath/wheezing Benzocaine/Menthol (Cepacol Sore Throat) 1 lozenge MUCMEM TID [facility] Last Admin: 03/26/19 08:07 Dose: Not Given Bupropion HCl (Wellbutrin Xl) 150 mg PO DAILY [facility] Last Admin: 03/26/19 08:04 Dose: 150 mg Clonazepam (Klonopin) 1 mg PO TID [facility] Last Admin: 03/26/19 08:07 Dose: 1 mg Docusate Sodium (Colace) 100 mg PO BID PRN PRN Reason: Constipation Promethazine HCl 6.25 mg/ (Sodium Chloride) 50.25 mls @ 200 mls/hr IV Q6H PRN PRN Reason: Nausea/Vomiting Last Admin: 03/23/19 06:33 Dose: 200 mls/hr Ibuprofen (Motrin) 600 mg PO Q6H PRN PRN Reason: Pain Last Admin: 03/26/19 06:41 Dose: 600 mg Lorazepam (Ativan) 1 mg IVPUSH Q4H PRN PRN Reason: Agitation Last Admin: 03/26/19 01:04 Dose: 1 mg Ondansetron HCl (Zofran Odt) 4 mg PO Q6H PRN PRN Reason: Nausea able to take PO Last Admin: 03/25/19 05:47 Dose: 4 mg Pantoprazole Sodium (Protonix) 40 mg PO ACBREAKFAST [facility] Last Admin: 03/26/19 07:12 Dose: 40 mg Buprenor/Nalox 12mg/ (3mg Sl Film (Ptom)) 0 each PO TID [facility] Last Admin: 03/26/19 08:03 Dose: 0.5 each Trazodone HCl (Trazodone) 50 mg PO BEDTIME [facility] Last Admin: 03/25/19 21:41 Dose: 50 mg Venlafaxine HCl (Effexor Xr) 300 mg PO DAILY [facility] Last Admin: 03/26/19 08:03 Dose: 300 mg Discontinued Medications Al Hydroxide/Mg Hydroxide 15 (ml/ Lidocaine HCl 15 ml) 0 ml PO ONETIME ONE Stop: 03/23/19 00:53 Last Admin: 03/23/19 00:56 Dose: 30 ml Sodium Chloride (Normal Saline) 1,000 mls @ 999 mls/hr IV ASDIRECTED [facility] Last Admin: 03/23/19 00:45 Dose: 999 mls/hr Sodium Chloride (Normal Saline) 1,000 mls @ 999 mls/hr IV ASDIRECTED [facility] Sodium Chloride (Normal Saline) 1,000 mls @ 125 mls/hr IV ASDIRECTED [facility] Last Admin: 03/24/19 03:42 Dose: 125 mls/hr Potassium Chloride 20 meq/ (Premix) 100 mls @ 50 mls/hr IV Q2H [facility] Stop: 03/24/19 09:58 Last Admin: 03/24/19 06:24 Dose: 50 mls/hr Potassium Chloride 20 meq/Lidocaine HCl 2 ml/ Sodium Chloride 112 mls @ 56 mls/ hr IV ONETIME ONE Stop: 03/24/19 10:29 Last Admin: 03/24/19 09:30 Dose: 56 mls/hr Sodium Chloride (Normal Saline) 1,000 mls @ 50 mls/hr IV ASDIRECTED [facility] Last Admin: 03/25/19 05:52 Dose: 50 mls/hr Ibuprofen (Motrin) 800 mg PO Q6H PRN PRN Reason: Pain (mild 1-3) Ketorolac Tromethamine (Toradol) 30 mg IVPUSH Q6H PRN PRN Reason: Pain (moderate 4-6) Stop: 03/28/19 03:17 Lidocaine HCl (Xylocaine-Mpf 1%) 5 ml INJECT ONETIME ONE Stop: 03/24/19 06:05 Last Admin: 03/24/19 06:24 Dose: 5 ml Lorazepam (Ativan) 2 mg IVPUSH ONETIME ONE Stop: 03/23/19 01:15 Last Admin: 03/23/19 01:26 Dose: 2 mg Non-Formulary Medication (Buprenorphine Hcl/Naloxone Hcl [Buprenorp-Nalox 8-2 Mg Sl Film]) 1 film PO DAILY [facility] Last Admin: 03/23/19 10:55 Dose: Not Given Oxycodone/Acetaminophen (Percocet 325-5 Mg) 1 tab PO Q4H PRN PRN Reason: Pain Last Admin: 03/24/19 06:39 Dose: 1 tab Potassium Chloride (Klor-Con M20) 40 meq PO ONETIME ONE Stop: 03/24/19 16:31 Last Admin: 03/24/19 16:44 Dose: 40 meq Trazodone HCl (Trazodone) 50 mg PO DAILY [facility] Last Admin: 03/23/19 09:27 Dose: Not Given - Exam Quality Assessment: Denies: Supplemental Oxygen General: Reports: Alert, Oriented, Cooperative, No Acute Distress Lungs: Reports: Normal Respiratory Effort GI/Abdominal Exam: Soft, No Distention Extremities: No Pedal Edema Psy/Mental Status: Reports: Alert, Normal Affect
== END 2019-03-26 11:44 | disposition home or self-care (01) ==
LOC: JP.ED 22:24 → JP.MS 03-23 01:21
PROVIDERS: ADMIT Internal Medicine; ATTEND Internal Medicine
DX: R40.4 Transient alteration of awareness (principal); E86.0 Dehydration; N17.9 Acute kidney failure, unspecified; A08.4 Viral intestinal infection, unspecified; E87.6 Hypokalemia; R25.2 Cramp and spasm; K21.9 Gastro-esophageal reflux disease without esophagitis; F17.200 Nicotine dependence, unspecified, uncomplicated; F11.221 Opioid dependence with intoxication delirium; G89.29 Other chronic pain; Z88.5 Allergy status to narcotic agent; Z88.8 Allergy status to other drugs, medicaments and biological substances; Z79.899 Other long term (current) drug therapy
CPT/HCPCS: 36415; 70450; 80048; 80053; 80305; 81001; 83605; 84132; 85025; 85027; 86140; 96360; 99284; A9270; G0480; J2001; J2060; J2550; J3480; J7030; J7050

== ENCOUNTER 2019-07-24 05:06 | Emergency (ER) | payer MEDICARE ==
--- NOTE | 2019-07-24 05:56 | EDM.PDOC ---
ED HPI GENERAL MEDICAL PROBLEM - General Chief Complaint: Back Pain or Injury Stated Complaint: MEDICAL VIA NORTH Time Seen by Provider: 07/24/19 05:37 Source of Information: Reports: Patient, RN Notes Reviewed History Limitations: Reports: No Limitations - History of Present Illness INITIAL COMMENTS - FREE TEXT/NARRATIVE: 64-year-old female presents emergency department today via EMS for a syncopal event. She is a very poor historian is difficult to extract history from her because she becomes so tangential. Apparently these syncopal events have been going on for several months she denies any confusion after the events they are random makes no difference if she is exerting herself for at rest. Denies any other symptoms with her syncopal events has not followed up with her primary for this. Follows with the pain clinic in [place] is currently on Suboxone chronic back pain Pain Score (Numeric/FACES): 8 - Related Data Allergies Allergy/AdvReac Type Severity Reaction Status Date / Time fentanyl Allergy Cannot Verified 07/24/19 05:21 Remember meperidine [From Demerol] Allergy Cannot Verified 07/24/19 05:21 Remember morphine Allergy Cannot Verified 07/24/19 05:21 Remember codeine AdvReac Nausea Verified 07/24/19 05:21 Home Meds: Home Meds Omeprazole 40 mg PO DAILY 04/14/18 [History] Venlafaxine [Effexor XR] 300 mg PO DAILY 04/14/18 [History] Zolpidem Tartrate [Ambien] 10 mg PO BEDTIME PRN 04/14/18 [History] clonazePAM [Klonopin] 1 mg PO TID #30 tablet 04/14/18 [Rx] Naltrexone 25 mg PO DAILY 03/22/19 [History] buPROPion [buPROPion XL] 150 mg PO DAILY 03/22/19 [History] clonazePAM [Klonopin] 1 mg PO DAILY 03/22/19 [History] traZODone HCl [Trazodone HCl] 50 mg PO BEDTIME 03/22/19 [History] Buprenorphine HCl/Naloxone HCl [Suboxone 12 mg-3 mg Sl Film] 0.5 strip BUCCAL TID 03/23/19 [History] Past Medical History HEENT History: Reports: Macular Degeneration 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: Reports: GERD 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: Musculoskeletal History: Reports: Back Pain, Chronic Psychiatric History: Reports: Addiction, Anxiety, Depression - Past Surgical History HEENT Surgical History: Reports: Tonsillectomy Female Surgical History: Reports: Hysterectomy Musculoskeletal Surgical History: Reports: Shoulder Surgery Other Musculoskeletal Surgeries/Procedures:: back surgery Social & Family History - Family History Family Medical History: Unobtainable - Tobacco Use Smoking Status *Q: Current Every Day Smoker Years of Tobacco use: 12 Packs/Tins Daily: 0.2 Second Hand Smoke Exposure: Yes - Caffeine Use Caffeine Use: Reports: Coffee, Soda Caffeine Use Comment: daily coffee use - Recreational Drug Use Recreational Drug Use: No ED ROS GENERAL - Review of Systems Review Of Systems: See Below Constitutional: Reports: No Symptoms HEENT: Reports: No Symptoms Respiratory: Reports: No Symptoms Cardiovascular: Reports: Syncope GI/Abdominal: Reports: No Symptoms : Reports: No Symptoms Musculoskeletal: Reports: No Symptoms Skin: Reports: No Symptoms Neurological: Reports: Syncope ED EXAM, GENERAL - Physical Exam Exam: See Below Exam Limited By: No Limitations General Appearance: Alert, WD/WN, No Apparent Distress Eye Exam: Bilateral Eye: Normal Inspection Throat/Mouth: Normal Inspection, Normal Lips, Normal Teeth, Normal Gums, Normal Oropharynx, Normal Voice, No Airway Compromise Head: Atraumatic, Normocephalic Neck: Normal Inspection, Supple, Non-Tender, Full Range of Motion Respiratory/Chest: No Respiratory Distress, Lungs Clear, Normal Breath Sounds, No Accessory Muscle Use, Chest Non-Tender Cardiovascular: Regular Rate, Rhythm, No Murmur GI/Abdominal: Soft, Non-Tender Extremities: No Pedal Edema Course - Vital Signs Last Recorded V/S: Last Vital Signs Temp 99.2 F 07/24/19 05:28 Pulse 87 07/24/19 05:28 Resp 17 07/24/19 05:28 BP 116/60 07/24/19 05:28 Pulse Ox 95 07/24/19 05:28 - Orders/Labs/Meds Orders: Active Orders 24 hr Category Date Time Status EKG Documentation Completion [RC] ASDIRECTED Care 07/24/19 05:52 Active EKG 12 Lead [EK] Stat Ther 07/24/19 05:52 Ordered Labs: Laboratory Tests 07/24/19 07/24/19 07/24/19 Range/Units 06:03 06:03 06:03 WBC 8.5 (4.5-11.0) K/uL RBC 3.99 (3.30-5.50) M/uL Hgb 11.3 L (12.0-15.0) g/dL Hct 36.2 (36.0-48.0) % MCV 91 (80-98) fL MCH 28 (27-31) pg MCHC 31 L (32-36) % Plt Count 251 (150-400) K/uL Neut % (Auto) 67 H (36-66) % Lymph % (Auto) 20 L (24-44) % [place] % (Auto) 9 H (2-6) % Eos % (Auto) 5 H (2-4) % Baso % (Auto) 1 (0-1) % Sodium 138 L (140-148) mmol/L Potassium 4.0 (3.6-5.2) mmol/L Chloride 104 (100-108) mmol/L Carbon Dioxide 24 (21-32) mmol/L Anion Gap 14.0 (5.0-14.0) mmol/L BUN 28 H D (7-18) mg/dL Creatinine 1.2 H (0.6-1.0) mg/dL Est Cr Clr Drug Dosing 38.44 mL/min Estimated GFR (MDRD) 46 L (>60) Glucose 80 (74-106) mg/dL Calcium 8.6 (8.5-10.1) mg/dL Troponin I < 0.017 (0.000-0.056) ng/mL Departure - Departure Time of Disposition: 06:43 Disposition: Home, Self-Care 01 Condition: Fair Clinical Impression: Syncope Qualifiers: Syncope type: unspecified Qualified Code(s): R55 - Syncope and collapse - Discharge Information Instructions: Syncope, [id number] Referrals: PCP,None [Primary Care Provider] - Forms: ED Department Discharge Additional Instructions: Please followup with your primary care provider in 3-5 days if not better, please call return to the emergency department with worsening of symptoms. Sepsis Event Note - Evaluation Sepsis Screening Result: No Definite Risk - Focused Exam Vital Signs: Vital Signs Temp Pulse Resp BP Pulse Ox 07/24/19 05:28 99.2 F 87 17 116/60 95 07/24/19 05:26 99.2 F 87 17 116/60 95 Date Exam was Performed: 07/24/19 Time Exam was Performed: 06:42 - My Orders Last 24 Hours: My Active Orders 07/24/19 05:52 EKG Documentation Completion [RC] ASDIRECTED EKG 12 Lead [EK] Stat - Assessment/Plan Last 24 Hours: My Active Orders 07/24/19 05:52 EKG Documentation Completion [RC] ASDIRECTED EKG 12 Lead [EK] Stat Plan: Assessment Acuity = chronic Site and laterality = syncope Etiology = unknown Manifestations = none Location of injury = Home Lab values = cysts hemoglobin low 11.3 consistent with normochromic anemia creatinine elevated 1.2 consistent with chronic renal failure stage G3 a EKG demonstrates normal sinus rhythm no signs of ST elevation or depression Plan I did review lab work EKG results with her recommend she follow-up with her primary care next 3 to 5 days for further evaluation of syncope This note was dictated using my[employer] voice recognition software please call with any questions on syntax or grammar.
== END 2019-07-24 06:53 | disposition home or self-care (01) ==
LOC: JP.ED 05:06
DX: R55 Syncope and collapse (principal); K21.9 Gastro-esophageal reflux disease without esophagitis; F41.9 Anxiety disorder, unspecified; F32.9 Major depressive disorder, single episode, unspecified; Z79.899 Other long term (current) drug therapy; Z88.5 Allergy status to narcotic agent; Z88.8 Allergy status to other drugs, medicaments and biological substances
CPT/HCPCS: 36415; 80048; 84484; 85025; 93005; 93010; 99283; 99284-25

== ENCOUNTER 2019-07-27 08:25 | Observation (INO) | payer MEDICARE ==
[2019-07-27] MEDS ORDERED: ClonazePAM 0.5 MG Tab PO ONE (08:49)
[2019-07-27] MEDS ORDERED: Sodium Chloride 0.9% 1,000 ML IV SCH ×2 (09:15→11:00)
--- NOTE | 2019-07-27 09:19 | EDM.PDOC ---
ED HPI GENERAL MEDICAL PROBLEM - General Chief Complaint: Behavioral/Psych Stated Complaint: FALL/MEDICAL VIA NORTH Time Seen by Provider: 07/27/19 09:15 Source of Information: Reports: Patient History Limitations: Reports: No Limitations - History of Present Illness INITIAL COMMENTS - FREE TEXT/NARRATIVE: pt arrived crying and very upset. She states she is falling all of the time. She has not been eating and drinking normally. Her relative states that she used to be addicted to opoids and she has worked hard to get off of them. She is now on the suboxone therapy. Since she went on that she has gone down hill and to the point that she is falling all of the time and is walking with a walker. Onset: Gradual Duration: Hour(s): Location: Reports: Generalized, Other (pt is falling, walking with a walker and she may have some dementia. ) Associated Symptoms: Reports: Other ( confusion. ) Generalized Pain Score (Numeric/FACES): 5 - Related Data Allergies Allergy/AdvReac Type Severity Reaction Status Date / Time fentanyl Allergy Cannot Verified 07/24/19 05:21 Remember meperidine [From Demerol] Allergy Cannot Verified 07/24/19 05:21 Remember morphine Allergy Cannot Verified 07/24/19 05:21 Remember codeine AdvReac Nausea Verified 07/24/19 05:21 Home Meds: Home Meds Omeprazole 40 mg PO DAILY 04/14/18 [History] Venlafaxine [Effexor XR] 300 mg PO DAILY 04/14/18 [History] Naltrexone 25 mg PO DAILY 03/22/19 [History] traZODone HCl [Trazodone HCl] 50 mg PO BEDTIME 03/22/19 [History] Buprenorphine HCl/Naloxone HCl [Suboxone 12 mg-3 mg Sl Film] 0.5 strip BUCCAL TID 03/23/19 [History] clonazePAM [Klonopin] 1 mg PO TID PRN 07/27/19 [History] Past Medical History HEENT History: Reports: Macular Degeneration 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: Reports: GERD 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: Musculoskeletal History: Reports: Back Pain, Chronic Psychiatric History: Reports: Addiction, Anxiety, Depression - Infectious Disease History Infectious Disease History: Reports: Chicken Pox - Past Surgical History HEENT Surgical History: Reports: Tonsillectomy Female Surgical History: Reports: Hysterectomy Musculoskeletal Surgical History: Reports: Shoulder Surgery Other Musculoskeletal Surgeries/Procedures:: back surgery Social & Family History - Family History Family Medical History: Unobtainable - Tobacco Use Smoking Status *Q: Current Every Day Smoker Years of Tobacco use: 50 Packs/Tins Daily: 0.5 - Caffeine Use Caffeine Use: Reports: Soda Caffeine Use Comment: daily coffee use - Recreational Drug Use Recreational Drug Use: Yes Drug Use in Last 12 Months: Yes Recreational Drug Type: Reports: Marijuana/Hashish Recreational Drug Use Frequency: Socially ED ROS GENERAL - Review of Systems Review Of Systems: See Below Constitutional: Reports: No Symptoms HEENT: Reports: No Symptoms Respiratory: Reports: No Symptoms Cardiovascular: Reports: No Symptoms Endocrine: Reports: No Symptoms GI/Abdominal: Reports: Decreased Appetite : Reports: No Symptoms Musculoskeletal: Reports: Other (pt is having difficulty walking and has been falling alot. This seemed to be a problem since she started on the suboxone. ) Skin: Reports: No Symptoms Neurological: Reports: Other (pt has been falling alot and she is ending up walkin with a walker. ) Psychiatric: Reports: Agitation, Anxiety, Other (pt is crying alot. ) - Physical Exam Exam: See Below Text/Narrative:: pt arrived crying alot and being very upset. Her relative feels like in the last few monthes she has become forgetful and she has gone done hill physically. She is now walking with a walker and she is falling alot. She was started on suboxone a few monthes ago. She worked very hard to get off of the opoids. Exam Limited By: No Limitations General Appearance: Alert, Anxious, Moderate Distress, Other ( Pt is crying continuously) Ears: Normal TMs Nose: Normal Inspection Throat/Mouth: Normal Inspection Head Exam: Atraumatic Neck: Normal Inspection Respiratory/Chest: No Respiratory Distress GI/Abdominal: Soft, Non-Tender (Female) Exam: Deferred Rectal (Female) Exam: Deferred Neuro Exam (Abbreviated): Alert, Oriented, Normal Cognition, Other ( difficulty with memory. ) Back Exam: Normal Inspection Extremities: Normal Inspection Psychiatric: Anxious, Tearful (crying alot. ), Other Course - Vital Signs Last Recorded V/S: Last Vital Signs Temp 37.2 C 07/29/19 11:00 Pulse 86 07/29/19 11:00 Resp 20 07/29/19 11:00 BP 137/80 01/03/20 11:00 Pulse Ox 96 07/29/19 11:00 - Orders/Labs/Meds Labs: Laboratory Tests 07/27/19 07/27/19 07/27/19 Range/Units 08:27 08:44 08:44 WBC 7.6 (4.5-11.0) K/uL RBC 4.27 (3.30-5.50) M/uL Hgb 12.1 (12.0-15.0) g/dL Hct 38.1 (36.0-48.0) % MCV 89 (80-98) fL MCH 28 (27-31) pg MCHC 32 (32-36) % Plt Count 301 (150-400) K/uL Neut % (Auto) 60 (36-66) % Lymph % (Auto) 26 (24-44) % [place] % (Auto) 10 H (2-6) % Eos % (Auto) 4 (2-4) % Baso % (Auto) 1 (0-1) % Sodium 139 L (140-148) mmol/L Potassium 3.6 (3.6-5.2) mmol/L Chloride 105 (100-108) mmol/L Carbon Dioxide 22 (21-32) mmol/L Anion Gap 15.6 H (5.0-14.0) mmol/L BUN 21 H (7-18) mg/dL Creatinine 1.2 H (0.6-1.0) mg/dL Est Cr Clr Drug Dosing 38.44 mL/min Estimated GFR (MDRD) 46 L (>60) Glucose 90 (74-106) mg/dL Calcium 8.6 (8.5-10.1) mg/dL Total Bilirubin 0.3 (0.2-1.0) mg/dL AST 88 H D (15-37) U/L ALT 40 D (12-78) U/L Alkaline Phosphatase 121 H (46-116) U/L Total Protein 6.9 (6.4-8.2) g/dL Albumin 3.4 (3.4-5.0) g/dL Globulin 3.5 (2.3-3.5) g/dL Albumin/Globulin Ratio 1.0 L (1.2-2.2) Lipase (73-393) U/L Urine Color (YELLOW) Urine Appearance (CLEAR) Urine pH (5.0-8.0) Ur Specific [place] (1.008-1.030) Urine Protein (NEGATIVE) mg/dL Urine Glucose (UA) (NEGATIVE) mg/dL Urine Ketones (NEGATIVE) mg/dL Urine Occult Blood (NEGATIVE) Urine Nitrite (NEGATIVE) Urine Bilirubin (NEGATIVE) Urine Urobilinogen (0.2-1.0) EU/dL Ur Leukocyte Esterase (NEGATIVE) Urine RBC (0-5) Urine WBC (0-5) Ur Epithelial Cells Amorphous Sediment Urine Bacteria Urine Mucus Urine Opiates Screen (NEGATIVE) Ur Oxycodone Screen (NEGATIVE) Urine Methadone Screen (NEGATIVE) Ur Propoxyphene Screen (NEGATIVE) Ur Barbiturates Screen (NEGATIVE) Ur Tricyclics Screen (NEGATIVE) Ur Phencyclidine Scrn (NEGATIVE) Ur Amphetamine Screen (NEGATIVE) U Methamphetamines Scrn (NEGATIVE) Urine MDMA Screen (NEGATIVE) U Benzodiazepines Scrn (NEGATIVE) U Cocaine Metab Screen (NEGATIVE) U Marijuana (THC) Screen (NEGATIVE) Ethyl Alcohol < 3 mg/dL 07/27/19 07/27/19 07/27/19 Range/Units 09:14 13:46 13:46 WBC (4.5-11.0) K/uL RBC (3.30-5.50) M/uL Hgb (12.0-15.0) g/dL Hct (36.0-48.0) % MCV (80-98) fL MCH (27-31) pg MCHC (32-36) % Plt Count (150-400) K/uL Neut % (Auto) (36-66) % Lymph % (Auto) (24-44) % [place] % (Auto) (2-6) % Eos % (Auto) (2-4) % Baso % (Auto) (0-1) % Sodium (140-148) mmol/L Potassium (3.6-5.2) mmol/L Chloride (100-108) mmol/L Carbon Dioxide (21-32) mmol/L Anion Gap (5.0-14.0) mmol/L BUN (7-18) mg/dL Creatinine (0.6-1.0) mg/dL Est Cr Clr Drug Dosing mL/min Estimated GFR (MDRD) (>60) Glucose (74-106) mg/dL Calcium (8.5-10.1) mg/dL Total Bilirubin (0.2-1.0) mg/dL AST (15-37) U/L ALT (12-78) U/L Alkaline Phosphatase (46-116) U/L Total Protein (6.4-8.2) g/dL Albumin (3.4-5.0) g/dL Globulin (2.3-3.5) g/dL Albumin/Globulin Ratio (1.2-2.2) Lipase 50 L (73-393) U/L Urine Color Yellow (YELLOW) Urine Appearance Slightly cloudy A (CLEAR) Urine pH 6.0 (5.0-8.0) Ur Specific [place] 1.025 (1.008-1.030) Urine Protein Negative (NEGATIVE) mg/dL Urine Glucose (UA) Negative (NEGATIVE) mg/dL Urine Ketones Trace H (NEGATIVE) mg/dL Urine Occult Blood Trace-intact H (NEGATIVE) Urine Nitrite Negative (NEGATIVE) Urine Bilirubin Negative (NEGATIVE) Urine Urobilinogen 0.2 (0.2-1.0) EU/dL Ur Leukocyte Esterase Trace H (NEGATIVE) Urine RBC 0-5 (0-5) Urine WBC 5-10 H (0-5) Ur Epithelial Cells Rare Amorphous Sediment Not seen Urine Bacteria Few Urine Mucus Not seen Urine Opiates Screen Negative (NEGATIVE) Ur Oxycodone Screen Presumptive positive H (NEGATIVE) Urine Methadone Screen Negative (NEGATIVE) Ur Propoxyphene Screen Negative (NEGATIVE) Ur Barbiturates Screen Negative (NEGATIVE) Ur Tricyclics Screen Negative (NEGATIVE) Ur Phencyclidine Scrn Negative (NEGATIVE) Ur Amphetamine Screen Negative (NEGATIVE) U Methamphetamines Scrn Negative (NEGATIVE) Urine MDMA Screen Negative (NEGATIVE) U Benzodiazepines Scrn Negative (NEGATIVE) U Cocaine Metab Screen Negative (NEGATIVE) U Marijuana (THC) Screen Negative (NEGATIVE) Ethyl Alcohol mg/dL Meds: Medications Discontinued Medications Generic Name Dose Route Start Last Admin Trade Name Freq PRN Reason Stop Dose Admin Acetaminophen 650 mg 07/27/19 15:18 07/29/19 03:13 Tylenol PO 650 mg Q4H PRN Administration Pain (Mild 1-3)/fever Albuterol 2.5 mg 07/27/19 15:18 Proventil Neb Soln NEB Q4H PRN Shortness Of Breath/wheezing Benzonatate 100 mg 07/27/19 23:36 07/29/19 01:45 Tessalon Perles PO 100 mg TID PRN Administration Cough Buprenorphine/Naloxone 0.5 tab 07/27/19 16:00 07/29/19 14:35 Buprenorphine-Naloxone 8 Mg-2 Mg SL 0.5 tab TID ALEX Administration Calcium Carbonate/Glycine 1,000 mg 07/27/19 23:35 07/29/19 01:45 Tums PO 1,000 mg Q2H PRN Administration Indigestion Clonazepam 1 mg 07/27/19 08:49 07/27/19 09:01 Klonopin PO 07/27/19 08:50 1 mg ONETIME ONE Administration Clonazepam 1 mg 07/27/19 15:21 07/29/19 03:13 Klonopin PO 1 mg TID PRN Administration ANXIETY Sodium Chloride 1,000 mls @ 999 mls/hr 07/27/19 09:15 07/27/19 09:43 Normal Saline IV 999 mls/hr ASDIRECTED ALEX Administration Sodium Chloride 1,000 mls @ 999 mls/hr 07/27/19 11:00 07/27/19 11:03 Normal Saline IV 999 mls/hr ASDIRECTED ALEX Administration Magnesium Sulfate 2 gm/ Premix 50 mls @ 12.5 mls/hr 07/27/19 17:40 07/27/19 19:04 IV 07/27/19 21:39 12.5 mls/hr ONETIME ONE Administration Ibuprofen 600 mg 07/27/19 15:18 07/28/19 21:31 Motrin PO 600 mg Q6H PRN Administration Pain/Fever Influenza Virus Vaccine 1 each 07/28/19 10:00 Pharmacy To Dose - Influenza Vaccine IM 07/28/19 10:01 ONETIME ONE Influenza Virus Vaccine 60 mcg 07/28/19 10:00 07/28/19 09:02 Fluzone Quad Syringe IM 07/28/19 10:01 60 mcg .ONCE ONE Administration Magnesium Hydroxide 30 ml 07/27/19 15:18 Milk Of Magnesia PO Q12H PRN Constipation Melatonin 9 mg 07/27/19 15:18 07/27/19 20:39 Melatonin PO 9 mg BEDTIME PRN Administration Sleep Non-Formulary Medication 0.5 strip 07/27/19 21:00 Buprenorphine Hcl/Naloxone Hcl [Suboxone 12 Mg-3 Mg Sl Film] BUCCAL TID ALEX Ondansetron HCl 4 mg 07/27/19 15:18 Zofran Odt PO Q6H PRN Nausea able to take PO Ondansetron HCl 4 mg 07/27/19 15:18 Zofran IV Q6H PRN Nausea/Vomiting Pantoprazole Sodium 40 mg 07/28/19 07:30 07/29/19 08:31 Protonix PO 40 mg ACBREAKFAST ALEX Administration Pneumococcal Polyvalent Vaccine 0.5 ml 07/28/19 10:00 07/28/19 09:01 Pneumovax 23 IM 07/28/19 10:01 0.5 ml .ONCE ONE Administration Senna/Docusate Sodium 1 tab 07/27/19 15:18 Senna Plus PO BID PRN Constipation Trazodone HCl 50 mg 07/27/19 21:00 07/28/19 21:18 Trazodone PO 50 mg BEDTIME ALEX Administration Venlafaxine HCl 300 mg 07/28/19 09:00 07/29/19 08:31 Effexor Xr PO 300 mg DAILY ALEX Administration - Re-Assessments/Exams Free Text/Narrative Re-Assessment/Exam: 07/27/19 10:10 cat scan of the head was normal. Her lab shows a borderline creatnine. 07/27/19 11:04 pt appears unstable on her feet. There is a strong family history of dementia. Pt is dehydrated. Will plan to admit for observation. Departure - Departure Time of Disposition: 11:06 Disposition: Admitted As Inpatient 68 Condition: Fair Clinical Impression: Dehydration, Altered behavior, History of opioid abuse - Discharge Information Sepsis Event Note - Focused Exam Date Exam was Performed: 07/30/19 Time Exam was Performed: 08:17
--- NOTE | 2019-07-27 09:37 | CRLCT ---
INDICATION: Head injury from falling, confusion TECHNIQUE: CT Head without i.v. contrast. COMPARISON: 03/23/2019 FINDINGS: CSF space: The ventricles are normal for age. Brain: No evidence of mass, acute infarction or hemorrhage is seen. No mass-effect or midline shift is seen. The brain parenchyma is otherwise normal in appearance with preservation of the love-white matter junction. Calvarium: Mucosal thickening with moderate air-fluid levels are present in the ethmoid and maxillary sinuses, likely due to sinusitis. The mastoid air cells are clear. The visualized orbits are grossly unremarkable. The calvarium is unremarkable in appearance with no fractures identified. IMPRESSIONS: 1. No evidence of acute infarction, intracranial hemorrhage, or mass-effect seen. 2. Mucosal thickening with moderate air-fluid levels are present in the ethmoid and maxillary sinuses, likely due to sinusitis. Dictated by Zachary Ocampo MD @ 07/27/2019 9:36:11 AM Please note that all CT scans at this facility use dose modulation, iterative reconstruction, and/or weight-based dosing when appropriate to reduce radiation dose to as low as reasonably achievable. Dictated by: Zachary Ocampo MD @ 07/27/2019 09:36:18 (Electronically Signed)
--- NOTE | 2019-07-27 14:39 | PCM.HP.2 ---
H&P History of Present Illness - General Date of Service: 07/27/19 Admit Problem/Dx: Admission Diagnosis/Problem Admission Diagnosis/Problem Falls Source of Information: Patient, Provider History Limitations: Reports: No Limitations - History of Present Illness Initial Comments - Free Text/Narative: CC: I keep falling HPI: Dorcas presents to the emergency room today by ambulance with concerns about falling. She reports multiple falls per day over the last at least several weeks and may be a couple of months. She describes the falls as a sudden onset without preceding symptoms. After she falls to the floor she is weak for short period of time and often struggles to get back up. She does not lose consciousness and does not feel dizzy or lightheaded. She has not had any episodes of chest pain or shortness of breath. She does report a mild nonproductive cough. No change in bowel or bladder habits. She is not taking any new medications. Her friend who is here thinks that things have gone downhill since she started on Suboxone several months ago. Patient is very tearful and admits to feeling sad but does not have any suicidal ideations. She has difficulty connecting with her kids because of busy schedules and had a lonely holiday season. She recently had to have her dog put to sleep. She reports multiple minor injuries from her falls including bruises on her fingers and feet as well as scrapes on both of her knees and a bump on her left shoulder. She is very scared about the falls. She has been worked up several times without any obvious cause for the fall. Work-up in the emergency room has been fairly benign other than some ration. Patient does not thought to be safe for outpatient management given her recent falls. She will be admitted for observation. Generalized Pain Score (Numeric/FACES): 5 - Related Data Allergies/Adverse Reactions: Allergies Allergy/AdvReac Type Severity Reaction Status Date / Time fentanyl Allergy Cannot Verified 07/24/19 05:21 Remember meperidine [From Demerol] Allergy Cannot Verified 07/24/19 05:21 Remember morphine Allergy Cannot Verified 07/24/19 05:21 Remember codeine AdvReac Nausea Verified 07/24/19 05:21 Home Medications: Home Meds Omeprazole 40 mg PO DAILY 04/14/18 [History] Venlafaxine [Effexor XR] 300 mg PO DAILY 04/14/18 [History] Naltrexone 25 mg PO DAILY 03/22/19 [History] traZODone HCl [Trazodone HCl] 50 mg PO BEDTIME 03/22/19 [History] Buprenorphine HCl/Naloxone HCl [Suboxone 12 mg-3 mg Sl Film] 0.5 strip BUCCAL TID 03/23/19 [History] clonazePAM [Klonopin] 1 mg PO TID PRN 07/27/19 [History] Past Medical History HEENT History: Reports: Macular Degeneration 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: Reports: GERD 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: 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: Musculoskeletal History: Reports: Back Pain, Chronic Psychiatric History: Reports: Addiction, Anxiety, Depression - Infectious Disease History Infectious Disease History: Reports: Chicken Pox - Past Surgical History HEENT Surgical History: Reports: Tonsillectomy Female Surgical History: Reports: Hysterectomy Musculoskeletal Surgical History: Reports: Shoulder Surgery Other Musculoskeletal Surgeries/Procedures:: back surgery Social & Family History - Family History Family Medical History: Unobtainable - Tobacco Use Smoking Status *Q: Current Every Day Smoker Years of Tobacco use: 50 Packs/Tins Daily: 0.5 - Caffeine Use Caffeine Use: Reports: Soda Caffeine Use Comment: daily coffee use - Alcohol Use Alcohol Use History: No - Recreational Drug Use Recreational Drug Use: Yes Drug Use in Last 12 Months: Yes Recreational Drug Type: Reports: Marijuana/Hashish Recreational Drug Use Frequency: Socially H&P Review of Systems - Review of Systems: Review Of Systems: See Below Free Text/Narrative: A complete 12 point review of systems was obtained. Pertinent positives and negatives are noted in the history of present illness. All other systems were reviewed and were negative except as noted. Exam - Exam Exam: See Below - Vital Signs Vital Signs: Last Vital Signs Temp 36.6 C 07/27/19 09:43 Pulse 106 H 07/27/19 09:43 Resp 24 H 07/27/19 09:43 BP 124/100 H 07/27/19 09:43 Pulse Ox 94 L 07/27/19 09:43 Weight: 63.503 kg - Exam Quality Assessment: No: Supplemental Oxygen General: Alert, Oriented, Cooperative, Mild Distress HEENT: Conjunctiva Clear. No: Mucosa Moist & [place] (dry), Scleral Icterus Neck: Supple, Trachea Midline. No: Lymphadenopathy Lungs: Clear to Auscultation, Normal Respiratory Effort Cardiovascular: Regular Rate, Regular Rhythm GI/Abdominal Exam: Normal Bowel Sounds, Soft, Non-Tender, No Distention Back Exam: Full Range of Motion Extremities: No Pedal Edema. No: Increased Warmth Skin: Warm, Dry, Ecchymosis (both feet at base of toes 1-3. right 5th finger, left elbow ), Wound (small abrasions on both knees ) Neuro Extensive - Mental Status: Alert, Oriented x3, Nl Response to Commands Neuro Extensive - Motor, Sensory, Reflexes: CN II-XII Intact. No: Dysarthria, Abnormal Motor, Tremor Psychiatric: Alert, Normal Affect - Patient Data Lab Results Last 24 hrs: Laboratory Results - last 24 hr 07/27/19 07/27/19 07/27/19 Range/Units 08:27 08:44 08:44 WBC 7.6 (4.5-11.0) K/uL RBC 4.27 (3.30-5.50) M/uL Hgb 12.1 (12.0-15.0) g/dL Hct 38.1 (36.0-48.0) % MCV 89 (80-98) fL MCH 28 (27-31) pg MCHC 32 (32-36) % Plt Count 301 (150-400) K/uL Neut % (Auto) 60 (36-66) % Lymph % (Auto) 26 (24-44) % Moody % (Auto) 10 H (2-6) % Eos % (Auto) 4 (2-4) % Baso % (Auto) 1 (0-1) % Sodium 139 L (140-148) mmol/L Potassium 3.6 (3.6-5.2) mmol/L Chloride 105 (100-108) mmol/L Carbon Dioxide 22 (21-32) mmol/L Anion Gap 15.6 H (5.0-14.0) mmol/L BUN 21 H (7-18) mg/dL Creatinine 1.2 H (0.6-1.0) mg/dL Est Cr Clr Drug Dosing 38.44 mL/min Estimated GFR (MDRD) 46 L (>60) Glucose 90 (74-106) mg/dL Calcium 8.6 (8.5-10.1) mg/dL Total Bilirubin 0.3 (0.2-1.0) mg/dL AST 88 H D (15-37) U/L ALT 40 D (12-78) U/L Alkaline Phosphatase 121 H (46-116) U/L Total Protein 6.9 (6.4-8.2) g/dL Albumin 3.4 (3.4-5.0) g/dL Globulin 3.5 (2.3-3.5) g/dL Albumin/Globulin Ratio 1.0 L (1.2-2.2) Lipase (73-393) U/L Urine Color (YELLOW) Urine Appearance (CLEAR) Urine pH (5.0-8.0) Ur Specific [place] (1.008-1.030) Urine Protein (NEGATIVE) mg/dL Urine Glucose (UA) (NEGATIVE) mg/dL Urine Ketones (NEGATIVE) mg/dL Urine Occult Blood (NEGATIVE) Urine Nitrite (NEGATIVE) Urine Bilirubin (NEGATIVE) Urine Urobilinogen (0.2-1.0) EU/dL Ur Leukocyte Esterase (NEGATIVE) Urine RBC (0-5) Urine WBC (0-5) Ur Epithelial Cells Amorphous Sediment Urine Bacteria Urine Mucus Urine Opiates Screen (NEGATIVE) Ur Oxycodone Screen (NEGATIVE) Urine Methadone Screen (NEGATIVE) Ur Propoxyphene Screen (NEGATIVE) Ur Barbiturates Screen (NEGATIVE) Ur Tricyclics Screen (NEGATIVE) Ur Phencyclidine Scrn (NEGATIVE) Ur Amphetamine Screen (NEGATIVE) U Methamphetamines Scrn (NEGATIVE) Urine MDMA Screen (NEGATIVE) U Benzodiazepines Scrn (NEGATIVE) U Cocaine Metab Screen (NEGATIVE) U Marijuana (THC) Screen (NEGATIVE) Ethyl Alcohol < 3 mg/dL 07/27/19 07/27/19 07/27/19 Range/Units 09:14 13:46 13:46 WBC (4.5-11.0) K/uL RBC (3.30-5.50) M/uL Hgb (12.0-15.0) g/dL Hct (36.0-48.0) % MCV (80-98) fL MCH (27-31) pg MCHC (32-36) % Plt Count (150-400) K/uL Neut % (Auto) (36-66) % Lymph % (Auto) (24-44) % Moody % (Auto) (2-6) % Eos % (Auto) (2-4) % Baso % (Auto) (0-1) % Sodium (140-148) mmol/L Potassium (3.6-5.2) mmol/L Chloride (100-108) mmol/L Carbon Dioxide (21-32) mmol/L Anion Gap (5.0-14.0) mmol/L BUN (7-18) mg/dL Creatinine (0.6-1.0) mg/dL Est Cr Clr Drug Dosing mL/min Estimated GFR (MDRD) (>60) Glucose (74-106) mg/dL Calcium (8.5-10.1) mg/dL Total Bilirubin (0.2-1.0) mg/dL AST (15-37) U/L ALT (12-78) U/L Alkaline Phosphatase (46-116) U/L Total Protein (6.4-8.2) g/dL Albumin (3.4-5.0) g/dL Globulin (2.3-3.5) g/dL Albumin/Globulin Ratio (1.2-2.2) Lipase 50 L (73-393) U/L Urine Color Yellow (YELLOW) Urine Appearance Slightly cloudy A (CLEAR) Urine pH 6.0 (5.0-8.0) Ur Specific [place] 1.025 (1.008-1.030) Urine Protein Negative (NEGATIVE) mg/dL Urine Glucose (UA) Negative (NEGATIVE) mg/dL Urine Ketones Trace H (NEGATIVE) mg/dL Urine Occult Blood Trace-intact H (NEGATIVE) Urine Nitrite Negative (NEGATIVE) Urine Bilirubin Negative (NEGATIVE) Urine Urobilinogen 0.2 (0.2-1.0) EU/dL Ur Leukocyte Esterase Trace H (NEGATIVE) Urine RBC 0-5 (0-5) Urine WBC 5-10 H (0-5) Ur Epithelial Cells Rare Amorphous Sediment Not seen Urine Bacteria Few Urine Mucus Not seen Urine Opiates Screen Negative (NEGATIVE) Ur Oxycodone Screen Presumptive positive H (NEGATIVE) Urine Methadone Screen Negative (NEGATIVE) Ur Propoxyphene Screen Negative (NEGATIVE) Ur Barbiturates Screen Negative (NEGATIVE) Ur Tricyclics Screen Negative (NEGATIVE) Ur Phencyclidine Scrn Negative (NEGATIVE) Ur Amphetamine Screen Negative (NEGATIVE) U Methamphetamines Scrn Negative (NEGATIVE) Urine MDMA Screen Negative (NEGATIVE) U Benzodiazepines Scrn Negative (NEGATIVE) U Cocaine Metab Screen Negative (NEGATIVE) U Marijuana (THC) Screen Negative (NEGATIVE) Ethyl Alcohol mg/dL Result Diagrams: 07/27/19 08:27 07/27/19 08:44 Imaging Impressions Last 24 hrs: Head CT - images personally reviewed - no acute stroke, mass or hemorrhage Sepsis Event Note - Evaluation Sepsis Screening Result: No Definite Risk - Focused Exam Vital Signs: Vital Signs Temp Pulse Resp BP Pulse Ox 07/27/19 09:43 36.6 C 106 H 24 H 124/100 H 94 L 07/27/19 08:29 36.6 C 106 H 24 H 124/100 H 94 L Date Exam was Performed: 07/27/19 Time Exam was Performed: 15:27 *Q Meaningful Use (ADM) - VTE Risk Assess *Q Each Risk Factor Represents 1 Point: None Total Score 1 Point Risk Factors: 0 Each Risk Factor Represents 2 Points: Age 60 - 74 Years Total Score 2 Point Risk Factors: 2 Each Risk Factor Represents 3 Points: None Total Score 3 Point Risk Factors: 0 Each Risk Factor Represents 5 Points: None Total Score 5 Point Risk Factors: 0 Venous Thromboembolism Risk Factor Score *Q: 2 - Problem List (1) Multiple falls SNOMED Code(s): 073172507 ICD Code: R29.6 - REPEATED FALLS Status: Acute Current Visit: Yes (2) Dehydration SNOMED Code(s): 84970034 ICD Code: E86.0 - DEHYDRATION Status: Acute Current Visit: Yes (3) Mixed anxiety and depressive disorder SNOMED Code(s): 467680185 ICD Code: F41.8 - OTHER SPECIFIED ANXIETY DISORDERS Status: Acute Current Visit: Yes (4) Chronic pain syndrome SNOMED Code(s): 154974193 ICD Code: G89.4 - CHRONIC PAIN SYNDROME Status: Chronic Current Visit: No (5) Tobacco abuse SNOMED Code(s): 152855147 ICD Code: Z72.0 - TOBACCO USE Status: Chronic Current Visit: No Problem List Initiated/Reviewed/Updated: Yes Orders Last 24hrs: Active Orders 24 hr Category Date Time Status Patient Status Manage Transfer [TRANSFER] Routine ADT 07/27/19 14:32 Ordered Sodium Chloride 0.9% [Normal Saline] 1,000 ml Med 07/27/19 11:00 Active IV ASDIRECTED Resuscitation Status Routine Resus Stat 07/27/19 14:34 Ordered Medication Orders Sodium Chloride (Normal Saline) 1,000 mls @ 999 mls/hr IV ASDIRECTED ALEX Last Admin: 07/27/19 11:03 Dose: 999 mls/hr Assessment/Plan Comment:: ASSESSMENT AND PLAN - Recurrent falls-fortunately only minor injuries so far. No obvious cause for the falls. My highest suspicion is for medication effects on the body versus possibly some mild dehydration. Much less likely would be dysrhythmia. There seems to be a significant underlying psychological component with loneliness and depression. -Cardiac monitoring -She has received 2 L of fluid in the ED -Encourage p.o. intake -Physical therapy in the morning Mixed anxiety with depression-both seem to be playing a significant role at this time. She is on fairly high doses of medication for both but may need adjustments. No suicidal ideations at this time. -Continue home medications Opiate dependence-she has been on Suboxone for the past 3 months or so. Friend who is here believes that downhill slide started when she got started on Suboxone. -Continue Suboxone -Discussed potential for side effects with Suboxone clinic tomorrow Tobacco dependence-encourage cessation. Maintenance issues - - DVT prophylaxis -mechanical - GI prophylaxis -continue home PPI - Nutrition -regular - Daly catheter -not indicated CODE STATUS -full code Admission justification -patient will be referred to observation status for expedited work-up and cardiac monitoring. Disposition -I would anticipate discharge home after the hospital stay Primary care physician -Dr. Michele Evans M.D. - Mortality Measure Prognosis:: Good
[2019-07-27] MEDS ORDERED: Melatonin 3 MG Tab PO PRN (15:18)
[2019-07-27] MEDS ORDERED: Magnesium Hydroxide 400 MG/5 ML Susp 30 ML Cup PO PRN (15:18)
[2019-07-27] MEDS ORDERED: Ondansetron 4 MG/2 ML SDV IV PRN (15:18)
[2019-07-27] MEDS ORDERED: Ondansetron 4 MG Tab.DIS PO PRN (15:18)
[2019-07-27] MEDS ORDERED: Albuterol 0.083% 2.5 MG/3 ML Neb Soln NEB PRN (15:18)
[2019-07-27] MEDS ORDERED: Non-Formulary Medication 1 Each (Clonazepam [Klonopin] 1 MG) PO PRN (15:18)
[2019-07-27] MEDS: Buprenorphine/Naloxone 8-2 MG Tab.SL SL SCH ×2 (16:02→20:39)
[2019-07-27] MEDS ORDERED: Magnesium Sulfate/Water 2 GM in Premix Bag 1 BAG IV ONE (17:40)
[2019-07-27] MEDS: ClonazePAM 1 MG Tab PO PRN (20:05)
[2019-07-27] MEDS: traZODone 50 MG Tab PO SCH (20:05)
[2019-07-27] MEDS: Ibuprofen 600 MG Tab PO PRN (20:38)
[2019-07-27] MEDS ORDERED: Non-Formulary Medication 1 Each (Buprenorphine Hcl/Naloxone Hcl [Suboxone 12 Mg-3 Mg Sl Fi BUCCAL SCH (21:00)
[2019-07-27] MEDS ORDERED: TRAZODONE HCL 50 MG PO SCH (21:00)
[2019-07-28] MEDS: Ibuprofen 600 MG Tab PO PRN ×3 (01:48→21:31)
[2019-07-28] MEDS: Calcium Carbonate 500 MG Tab.Chew PO PRN (01:48)
[2019-07-28] MEDS: Benzonatate 100 MG Cap PO PRN ×4 (01:48→21:31)
[2019-07-28] MEDS: Acetaminophen 325 MG Tab PO PRN (04:50)
[2019-07-28] MEDS: Buprenorphine/Naloxone 8-2 MG Tab.SL SL SCH ×3 (08:58→21:17)
[2019-07-28] MEDS: Pantoprazole 40 MG Tab.CR PO SCH (08:59)
[2019-07-28] MEDS: Venlafaxine 75 MG Cap.ER PO SCH (08:59)
[2019-07-28] MEDS ORDERED: Non-Formulary Medication 1 Each (Omeprazole [Omeprazole] 40 MG) PO SCH (09:00)
[2019-07-28] MEDS ORDERED: VENLAFAXINE 300 MG PO SCH (09:00)
[2019-07-28] MEDS ORDERED: Pneumococcal Polyvalent-23 Vaccine 0.5 ML SDV IM ONE (10:00)
[2019-07-28] MEDS ORDERED: FLU Vacc QS2019-20(6MOS+)/PF 60 MCG/0.5 ML SYRINGE IM ONE (10:00)
--- NOTE | 2019-07-28 16:37 | PCM.PN ---
- General Info Date of Service: 07/28/19 Subjective Update: There were no acute events overnight. Patient has not had any fevers. She does continue to have a mild cough. She continues to be very tearful and depressed as well as anxious. She has been up and walking with nursing supervision and has not had any difficulties. Orthostatic vital signs were unremarkable. I did call and discussed the case with Dr. Lalo Blackmon who runs the Suboxone clinic in [place]. He voiced the same concerns that I have had about too many medications and in particular the benzodiazepine and Suboxone. I reviewed the urine drug screen with the patient today. The drug screen did reveal oxycodone which she admitted to taking 1 5 mg tablet 5 days before presentation. When asked about the benzodiazepine she reported she was not sure when she last took it because she had run out and then when her refill arrived it was promptly stolen. Functional Status: Reports: Pain Controlled, Tolerating Diet - Review of Systems General: Reports: Weakness Psychiatric: Reports: Depression, Anxiety - Patient Data Vitals - Most Recent: Last Vital Signs Temp 36.8 C 07/28/19 14:33 Pulse 74 07/28/19 14:33 Resp 18 07/28/19 14:33 BP 140/63 07/28/19 14:33 Pulse Ox 92 L 07/28/19 14:33 Orthostatic Blood Pressure [ 113/87 Standing] Orthostatic Blood Pressure [ 109/92 Sitting] Orthostatic Blood Pressure [ 117/65 Supine] Weight - Most Recent: 63.503 kg I&O - Last 24 Hours: Intake & Output 07/28/19 07/28/19 07/28/19 06:59 14:59 22:59 Intake Total 400 800 Output Total 700 650 Balance -300 150 Lab Results Last 24 Hours: Laboratory Results - last 24 hr 07/28/19 07/28/19 Range/Units 05:30 05:30 WBC 6.9 (4.5-11.0) K/uL RBC 3.66 (3.30-5.50) M/uL Hgb 10.1 L D (12.0-15.0) g/dL Hct 33.4 L (36.0-48.0) % MCV 91 (80-98) fL MCH 28 (27-31) pg MCHC 30 L (32-36) % Plt Count 258 (150-400) K/uL ESR 28 H (0-25) mm/hr Sodium 145 (140-148) mmol/L Potassium 3.7 (3.6-5.2) mmol/L Chloride 111 H (100-108) mmol/L Carbon Dioxide 26 (21-32) mmol/L Anion Gap 11.7 (5.0-14.0) mmol/L BUN 11 (7-18) mg/dL Creatinine 0.9 (0.6-1.0) mg/dL Est Cr Clr Drug Dosing 51.26 mL/min Estimated GFR (MDRD) > 60 (>60) Glucose 138 H (74-106) mg/dL Calcium 8.2 L (8.5-10.1) mg/dL Med Orders - Current: Current Medications Acetaminophen (Tylenol) 650 mg PO Q4H PRN PRN Reason: Pain (Mild 1-3)/fever Last Admin: 07/28/19 04:50 Dose: 650 mg Albuterol (Proventil Neb Soln) 2.5 mg NEB Q4H PRN PRN Reason: Shortness Of Breath/wheezing Benzonatate (Tessalon Perles) 100 mg PO TID PRN PRN Reason: Cough Last Admin: 07/28/19 11:39 Dose: 100 mg Buprenorphine/Naloxone (Buprenorphine-Naloxone 8 Mg-2 Mg) 0.5 tab SL TID ALEX Last Admin: 07/28/19 15:14 Dose: 0.5 tab Calcium Carbonate/Glycine (Tums) 1,000 mg PO Q2H PRN PRN Reason: Indigestion Last Admin: 07/28/19 01:48 Dose: 1,000 mg Clonazepam (Klonopin) 1 mg PO TID PRN PRN Reason: ANXIETY Last Admin: 07/27/19 20:05 Dose: 1 mg Ibuprofen (Motrin) 600 mg PO Q6H PRN PRN Reason: Pain/Fever Last Admin: 07/28/19 11:39 Dose: 600 mg Magnesium Hydroxide (Milk Of Magnesia) 30 ml PO Q12H PRN PRN Reason: Constipation Melatonin (Melatonin) 9 mg PO BEDTIME PRN PRN Reason: Sleep Last Admin: 07/27/19 20:39 Dose: 9 mg Ondansetron HCl (Zofran Odt) 4 mg PO Q6H PRN PRN Reason: Nausea able to take PO Ondansetron HCl (Zofran) 4 mg IV Q6H PRN PRN Reason: Nausea/Vomiting Pantoprazole Sodium (Protonix) 40 mg PO ACBREAKFAST [facility] Last Admin: 07/28/19 08:59 Dose: 40 mg Senna/Docusate Sodium (Senna Plus) 1 tab PO BID PRN PRN Reason: Constipation Trazodone HCl (Trazodone) 50 mg PO BEDTIME [facility] Last Admin: 07/27/19 20:05 Dose: 50 mg Venlafaxine HCl (Effexor Xr) 300 mg PO DAILY [facility] Last Admin: 07/28/19 08:59 Dose: 300 mg Discontinued Medications Clonazepam (Klonopin) 1 mg PO ONETIME ONE Stop: 07/27/19 08:50 Last Admin: 07/27/19 09:01 Dose: 1 mg Sodium Chloride (Normal Saline) 1,000 mls @ 999 mls/hr IV ASDIRECTED [facility] Last Admin: 07/27/19 09:43 Dose: 999 mls/hr Sodium Chloride (Normal Saline) 1,000 mls @ 999 mls/hr IV ASDIRECTED [facility] Last Admin: 07/27/19 11:03 Dose: 999 mls/hr Magnesium Sulfate 2 gm/ Premix 50 mls @ 12.5 mls/hr IV ONETIME ONE Stop: 07/27/19 21:39 Last Admin: 07/27/19 19:04 Dose: 12.5 mls/hr Influenza Virus Vaccine (Pharmacy To Dose - Influenza Vaccine) 1 each IM ONETIME ONE Stop: 07/28/19 10:01 Influenza Virus Vaccine (Fluzone Quad [id number] Syringe) 60 mcg IM .ONCE ONE Stop: 07/28/19 10:01 Last Admin: 07/28/19 09:02 Dose: 60 mcg Non-Formulary Medication (Buprenorphine Hcl/Naloxone Hcl [Suboxone 12 Mg-3 Mg Sl Film]) 0.5 strip BUCCAL TID [facility] Pneumococcal Polyvalent Vaccine (Pneumovax 23) 0.5 ml IM .ONCE ONE Stop: 07/28/19 10:01 Last Admin: 07/28/19 09:01 Dose: 0.5 ml - Exam Quality Assessment: No: Supplemental Oxygen General: Alert, Oriented, Cooperative, No Acute Distress Lungs: Normal Respiratory Effort GI/Abdominal Exam: Soft, No Distention Extremities: No Pedal Edema Skin: Warm, Dry Psy/Mental Status: Alert, Normal Affect, Anxious, Other (tearful) Sepsis Event Note - Evaluation Sepsis Screening Result: No Definite Risk - Focused Exam Vital Signs: Vital Signs Temp Pulse Resp BP BP Pulse Ox 07/28/19 14:33 36.8 C 74 18 140/63 92 L 07/28/19 11:41 36.3 C 76 16 127/95 H 96 07/28/19 09:58 36.6 C 07/28/19 07:00 37.0 C 75 18 107/57 L 97 Date Exam was Performed: 07/28/19 Time Exam was Performed: 17:26 - Problem List & Annotations (1) Multiple falls SNOMED Code(s): 196583492 Code(s): R29.6 - REPEATED FALLS Status: Acute Current Visit: Yes (2) Dehydration SNOMED Code(s): 30573753 Code(s): E86.0 - DEHYDRATION Status: Acute Current Visit: Yes (3) Mixed anxiety and depressive disorder SNOMED Code(s): 427298284 Code(s): F41.8 - OTHER SPECIFIED ANXIETY DISORDERS Status: Acute Current Visit: Yes (4) Chronic pain syndrome SNOMED Code(s): 895935622 Code(s): G89.4 - CHRONIC PAIN SYNDROME Status: Chronic Current Visit: No (5) Tobacco abuse SNOMED Code(s): 054678752 Code(s): Z72.0 - TOBACCO USE Status: Chronic Current Visit: No - Problem List Review Problem List Initiated/Reviewed/Updated: Yes - My Orders Last 24 Hours: My Active Orders 07/27/19 16:00 Buprenorphine/Naloxone [Buprenorphine-Naloxone 8 MG-2 MG] 0.5 tab SL TID 07/27/19 21:00 traZODone 50 mg PO BEDTIME 07/27/19 23:35 Calcium Carbonate [Tums] 1,000 mg PO Q2H PRN 07/27/19 23:36 Benzonatate [Tessalon Perles] 100 mg PO TID PRN 07/27/19 Dinner Regular Diet [DIET] 07/28/19 00:18 Influenza Vaccine Charge [RC] .DISCHARGE 07/28/19 07:00 Orthostatic Vital Signs [RC] DAILY PT Evaluation and Treatment [CONS] Routine 07/28/19 07:30 Pantoprazole [ProTONIX] 40 mg PO ACBREAKFAST 07/28/19 09:00 Venlafaxine [Effexor XR] 300 mg PO DAILY 07/28/19 14:27 Cooling Warming Measures [RC] ASDIRECTED Heat Therapy [OM.PC] Routine - Plan Plan:: ASSESSMENT AND PLAN - Recurrent falls-fortunately only minor injuries so far. I suspect her ambulation difficulties are related to polypharmacy. There is a potential for adverse events with benzodiazepines and Suboxone used concurrently. I did discuss the case with her Suboxone clinic provider who recommended tapering 1 or the other. Patient is unsure which she would like to taper and would like to think about it for a night. -Discontinue cardiac monitoring -Encourage p.o. intake -Physical therapy in the morning Mixed anxiety with depression-both seem to be playing a significant role at this time. I am a little concerned that she may have a major depression with some psychotic features versus the medication interaction discussed both above and below. -Outpatient versus inpatient psychiatric evaluation -Continue home medications Opiate dependence-she has been on Suboxone since October 2018. There are several red flags at this time including finding oxycodone in her drug screen and she does admit to taking this because of pain. Additional red flags with running out of benzodiazepines early and having them stolen. -Continue Suboxone -Outpatient follow-up with the Suboxone clinic to discuss additional treatment/ medication changes Tobacco dependence-encourage cessation. Maintenance issues - - DVT prophylaxis -mechanical - GI prophylaxis -continue home PPI - Nutrition -regular Disposition -I would anticipate discharge home after the hospital stay Primary care physician -Dr. Michele Evans M.D.
[2019-07-28] MEDS: traZODone 50 MG Tab PO SCH (21:18)
[2019-07-29] MEDS: Benzonatate 100 MG Cap PO PRN (01:45)
[2019-07-29] MEDS: Calcium Carbonate 500 MG Tab.Chew PO PRN (01:45)
[2019-07-29] MEDS: Acetaminophen 325 MG Tab PO PRN (03:13)
[2019-07-29] MEDS: ClonazePAM 1 MG Tab PO PRN (03:13)
[2019-07-29] MEDS: Venlafaxine 75 MG Cap.ER PO SCH (08:31)
[2019-07-29] MEDS: Pantoprazole 40 MG Tab.CR PO SCH (08:31)
[2019-07-29] MEDS: Buprenorphine/Naloxone 8-2 MG Tab.SL SL SCH ×2 (08:39→14:35)
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
== END 2019-07-29 15:05 | disposition home health service (06) ==
LOC: JP.ED 08:25 → JP.MS 14:32
PROVIDERS: ADMIT Internal Medicine; ATTEND Internal Medicine
DX: R29.6 Repeated falls (principal); F41.8 Other specified anxiety disorders; E86.0 Dehydration; G89.4 Chronic pain syndrome; K21.9 Gastro-esophageal reflux disease without esophagitis; F17.210 Nicotine dependence, cigarettes, uncomplicated; Z79.891 Long term (current) use of opiate analgesic; Z88.5 Allergy status to narcotic agent; Z79.899 Other long term (current) drug therapy
CPT/HCPCS: 36415; 70450; 80048; 80053; 80305-QW; 81001; 83690; 83735; 84443; 85025; 85027; 85651; 90686; 90732; 96360; 96361; 96365; 96366; 97162-GP; 97530-GP; 99284; 99284-25; A9270-GY; G0008; G0009; G0378; G0480; J0574-GY; J3475; J7030

== ENCOUNTER 2019-09-22 18:27 | Emergency (ER) | payer MEDICARE ==
[2019-09-22] MEDS ORDERED: Sodium Chloride 0.9% 10 ML Syringe FLUSH PRN (18:55)
--- NOTE | 2019-09-22 19:02 | EDM.PDOC ---
ED HPI GENERAL MEDICAL PROBLEM - General Chief Complaint: General Stated Complaint: MEDICAL [facility] Time Seen by Provider: 09/22/19 18:45 Source of Information: Reports: Patient, EMS, Old Records History Limitations: Reports: No Limitations - History of Present Illness INITIAL COMMENTS - FREE TEXT/NARRATIVE: 64 yo female here from her home where she lives alone via EMS. Has been having frequent loose stools for the past 3 days. Stools more recently are black. No fever or vomiting. No known exposures. No hx of the same. Has a hx of hypokalemia. Reports some mild L chest tightness. Is taking Imodium for her sx' s. Onset: Gradual Onset Date: 09/19/19 Duration: Day(s): (3), Constant Location: Reports: Abdomen Quality: Reports: Dull Severity: Mild Improves with: Reports: None Worsens with: Reports: None Context: Reports: Other (See HPI) Associated Symptoms: Reports: Chest Pain (mild L chest tightness), Weakness. 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) (Imodium) - Related Data Allergies Allergy/AdvReac Type Severity Reaction Status Date / Time fentanyl Allergy Cannot Verified 07/24/19 05:21 Remember meperidine [From Demerol] Allergy Cannot Verified 07/24/19 05:21 Remember morphine Allergy Cannot Verified 07/24/19 05:21 Remember codeine AdvReac Nausea Verified 07/24/19 05:21 Home Meds: Home Meds Omeprazole 40 mg PO DAILY 04/14/18 [History] Venlafaxine [Effexor XR] 300 mg PO DAILY 04/14/18 [History] Naltrexone 25 mg PO DAILY 03/22/19 [History] traZODone HCl [Trazodone HCl] 50 mg PO BEDTIME 03/22/19 [History] Buprenorphine HCl/Naloxone HCl [Suboxone 12 mg-3 mg Sl Film] 0.5 strip BUCCAL TID 03/23/19 [History] clonazePAM [Klonopin] 1 mg PO TID PRN 07/27/19 [History] buPROPion HCL [Bupropion Xl] 300 mg PO DAILY 09/22/19 [History] Past Medical History HEENT History: Reports: Macular Degeneration 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: Reports: GERD 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: Musculoskeletal History: Reports: Back Pain, Chronic Other Musculoskeletal History: Reports h/o R/L sciatica Psychiatric History: Reports: Addiction, Anxiety, Depression - Infectious Disease History Infectious Disease History: Reports: Chicken Pox - Past Surgical History HEENT Surgical History: Reports: Tonsillectomy Female Surgical History: Reports: Hysterectomy Neurological Surgical History: Reports: Lumbar Spine Musculoskeletal Surgical History: Reports: Shoulder Surgery Other Musculoskeletal Surgeries/Procedures:: back surgery Social & Family History - Family History Family Medical History: Unobtainable - Tobacco Use Smoking Status *Q: Former Smoker Years of Tobacco use: 47 Packs/Tins Daily: 1 Used Tobacco, but Quit: Yes Month/Year Tobacco Last Used: 08/2019 - Caffeine Use Caffeine Use: Reports: Soda Caffeine Use Comment: daily coffee use - Recreational Drug Use Recreational Drug Use: Yes Recreational Drug Type: Reports: Marijuana/Hashish ED ROS GENERAL - Review of Systems Review Of Systems: See Below Constitutional: Reports: Weakness HEENT: Reports: No Symptoms Respiratory: Reports: No Symptoms Cardiovascular: Reports: Chest Pain (mild L chest tightness) GI/Abdominal: Reports: Abdominal Pain, Black Stool, Diarrhea. Denies: Bloody Stool, Constipation, Distension, Hematemesis, Hematochezia, Nausea, Vomiting : Reports: No Symptoms Musculoskeletal: Reports: No Symptoms Skin: Reports: No Symptoms Neurological: Reports: No Symptoms ED EXAM, GENERAL - Physical Exam Exam: See Below Exam Limited By: No Limitations General Appearance: Alert, WD/WN, No Apparent Distress Eye Exam: Bilateral Eye: Normal Inspection Ears: Normal External Exam, Normal Canal, Hearing Grossly Normal, Normal TMs Ear Exam: Bilateral Ear: Auricle Normal, Canal Normal, TM normal Nose: Normal Inspection, No Blood Throat/Mouth: Normal Inspection, Normal Lips, Normal Oropharynx, Normal Voice, No Airway Compromise Head: Atraumatic, Normocephalic Neck: Normal Inspection Respiratory/Chest: No Respiratory Distress, Lungs Clear, Normal Breath Sounds, No Accessory Muscle Use Cardiovascular: Regular Rate, Rhythm, No Edema GI/Abdominal: Normal Bowel Sounds, Soft, No Distention, Tender (mild diffuse). No: Non-Tender, Distended, Guarding, Rigid, Rebound Back Exam: Normal Inspection. No: CVA Tenderness (R), CVA Tenderness (L) Extremities: Normal Inspection, Normal Range of Motion, Non-Tender, No Pedal Edema Neurological: Alert, Oriented, CN II-XII Intact, Normal Cognition, No Motor/ Sensory Deficits Psychiatric: Normal Affect, Normal Mood Skin Exam: Warm, Dry, Intact, Normal Color, No Rash EKG INTERPRETATION EKG Date: 09/22/19 Time: 18:30 Rhythm: NSR Rate (Beats/Min): 73 [place]: Normal P-Wave: Present QRS: Normal ST-T: Normal QT: Normal Comparison: No Change Course - Vital Signs Last Recorded V/S: Last Vital Signs Temp 36.8 C 09/22/19 18:46 Pulse 80 09/22/19 22:08 Resp 14 09/22/19 22:08 BP 141/90 H 09/22/19 22:08 Pulse Ox 96 09/22/19 18:46 - Orders/Labs/Meds Orders: Active Orders 24 hr Category Date Time Status EKG Documentation Completion [RC] ASDIRECTED Care 09/22/19 22:02 Active Urinary Catheter Assessment [RC] ASDIRECTED Care 09/22/19 21:01 Active Urinary Catheter Insertion [Insert Urinary Catheter] [ Care 09/22/19 21:00 Ordered OM.PC] Q24H CULTURE STOOL + SHIGATOX [RM] Stat Lab 09/22/19 20:55 Received NS + KCl 20mEq/L [Normal Saline with 20 mEq KCl] 1,000 Med 09/22/19 20:00 Active ml IV ASDIRECTED Sodium Chloride 0.9% [Saline Flush] Med 09/22/19 18:55 Active 10 ml FLUSH ASDIRECTED PRN Saline Lock Insert [OM.PC] Routine Oth 09/22/19 18:55 Ordered EKG 12 Lead [EK] Routine Ther 09/22/19 22:01 Ordered Medication Orders Potassium Chloride/Sodium Chloride (Normal Saline With 20 Meq Kcl) 1,000 mls @ 1,000 mls/hr IV ASDIRECTED ALEX Last Admin: 09/22/19 19:58 Dose: 1,000 mls/hr Sodium Chloride (Saline Flush) 10 ml FLUSH ASDIRECTED PRN PRN Reason: Keep Vein Open Last Admin: 09/22/19 19:10 Dose: 10 ml Labs: Laboratory Tests 09/22/19 09/22/19 09/22/19 Range/Units 18:07 18:07 18:07 WBC 14.0 H (4.5-11.0) K/uL RBC 5.42 (3.30-5.50) M/uL Hgb 15.1 H D (12.0-15.0) g/dL Hct 46.7 (36.0-48.0) % MCV 86 (80-98) fL MCH 28 (27-31) pg MCHC 32 (32-36) % Plt Count 466 H (150-400) K/uL Sodium 134 L (140-148) mmol/L Potassium 3.0 L (3.6-5.2) mmol/L Chloride 97 L (100-108) mmol/L Carbon Dioxide 20 L (21-32) mmol/L Anion Gap 20.0 H (5.0-14.0) mmol/L BUN 31 H D (7-18) mg/dL Creatinine 1.2 H (0.6-1.0) mg/dL Est Cr Clr Drug Dosing 38.44 mL/min Estimated GFR (MDRD) 46 L (>60) Glucose 92 (74-106) mg/dL Calcium 8.7 (8.5-10.1) mg/dL Magnesium 1.9 (1.8-2.4) mg/dL Troponin I < 0.017 (0.000-0.056) ng/mL Urine Color (YELLOW) Urine Appearance (CLEAR) Urine pH (5.0-8.0) Ur Specific [place] (1.008-1.030) Urine Protein (NEGATIVE) mg/dL Urine Glucose (UA) (NEGATIVE) mg/dL Urine Ketones (NEGATIVE) mg/dL Urine Occult Blood (NEGATIVE) Urine Nitrite (NEGATIVE) Urine Bilirubin (NEGATIVE) Urine Urobilinogen (0.2-1.0) EU/dL Ur Leukocyte Esterase (NEGATIVE) Urine RBC (0-5) Urine WBC (0-5) Ur Epithelial Cells Amorphous Sediment Urine Bacteria Urine Mucus 09/22/19 Range/Units 20:55 WBC (4.5-11.0) K/uL RBC (3.30-5.50) M/uL Hgb (12.0-15.0) g/dL Hct (36.0-48.0) % MCV (80-98) fL MCH (27-31) pg MCHC (32-36) % Plt Count (150-400) K/uL Sodium (140-148) mmol/L Potassium (3.6-5.2) mmol/L Chloride (100-108) mmol/L Carbon Dioxide (21-32) mmol/L Anion Gap (5.0-14.0) mmol/L BUN (7-18) mg/dL Creatinine (0.6-1.0) mg/dL Est Cr Clr Drug Dosing mL/min Estimated GFR (MDRD) (>60) Glucose (74-106) mg/dL Calcium (8.5-10.1) mg/dL Magnesium (1.8-2.4) mg/dL Troponin I (0.000-0.056) ng/mL Urine Color Yellow (YELLOW) Urine Appearance Clear (CLEAR) Urine pH 6.0 (5.0-8.0) Ur Specific [place] 1.020 (1.008-1.030) Urine Protein Negative (NEGATIVE) mg/dL Urine Glucose (UA) Negative (NEGATIVE) mg/dL Urine Ketones Negative (NEGATIVE) mg/dL Urine Occult Blood Negative (NEGATIVE) Urine Nitrite Negative (NEGATIVE) Urine Bilirubin Negative (NEGATIVE) Urine Urobilinogen 0.2 (0.2-1.0) EU/dL Ur Leukocyte Esterase Negative (NEGATIVE) Urine RBC Not seen (0-5) Urine WBC 0-5 (0-5) Ur Epithelial Cells Not seen Amorphous Sediment Few Urine Bacteria Not seen Urine Mucus Not seen Meds: Medications Generic Name Dose Route Start Last Admin Trade Name Freq PRN Reason Stop Dose Admin Potassium Chloride/Sodium Chloride 1,000 mls @ 1,000 mls/hr 09/22/19 20:00 19:58 Normal Saline With 20 Meq Kcl IV 1,000 mls/hr ASDIRECTED ALEX Administration Sodium Chloride 10 ml 09/22/19 18:55 09/22/19 19:10 Saline Flush FLUSH 10 ml ASDIRECTED PRN Administration Keep Vein Open Discontinued Medications Generic Name Dose Route Start Last Admin Trade Name Freq PRN Reason Stop Dose Admin Lactated Ringer's 1,000 mls @ 1,000 mls/hr 09/22/19 21:13 09/22/19 21:15 Ringers, Lactated IV 09/22/19 22:12 1,000 mls/hr BOLUS ONE Administration Potassium Chloride 40 meq 09/22/19 19:53 09/22/19 20:01 Potassium Chloride PO 09/22/19 19:54 40 meq ONETIME ONE Administration Departure - Departure Time of Disposition: 22:30 Disposition: Home, Self-Care 01 Condition: Fair Clinical Impression: Mild dehydration, Hypokalemia Diarrhea Qualifiers: Diarrhea type: unspecified type Qualified Code(s): R19.7 - Diarrhea, unspecified - Discharge Information *PRESCRIPTION DRUG MONITORING PROGRAM REVIEWED*: Not Applicable *COPY OF PRESCRIPTION DRUG MONITORING REPORT IN PATIENT MARK: Not Applicable Instructions: Diarrhea, Adult, [id number] Referrals: PCP,None [Primary Care Provider] - Forms: ED Department Discharge Additional Instructions: Drink Gatorade or apple juice to rehydrate and give you some electrolytes. Take acetaminophen as needed for pain relief. Take loperamide one after each loose stool up to 7 a day. F/U for recheck tomorrow in the clinic for recheck. Take potassium as directed. Sepsis Event Note - Evaluation Sepsis Screening Result: No Definite Risk - Focused Exam Vital Signs: Vital Signs Temp Pulse Resp BP Pulse Ox 09/22/19 22:08 80 14 141/90 H 09/22/19 21:45 77 20 142/86 H 09/22/19 21:04 70 17 133/87 09/22/19 19:15 63 18 97/77 09/22/19 18:46 36.8 C 75 14 146/102 H 96 09/22/19 18:43 36.8 C 75 14 146/102 H 96 Date Exam was Performed: 09/22/19 Time Exam was Performed: 22:16 - My Orders Last 24 Hours: My Active Orders 09/22/19 18:55 Sodium Chloride 0.9% [Saline Flush] 10 ml FLUSH ASDIRECTED PRN Saline Lock Insert [OM.PC] Routine 09/22/19 20:00 NS + KCl 20mEq/L [Normal Saline with 20 mEq KCl] 1,000 ml IV ASDIRECTED 09/22/19 20:55 CULTURE STOOL + SHIGATOX [RM] Stat 09/22/19 21:00 Urinary Catheter Insertion [Insert Urinary Catheter] [OM.PC] Q24H 09/22/19 21:01 Urinary Catheter Assessment [RC] ASDIRECTED 09/22/19 22:01 EKG 12 Lead [EK] Routine 09/22/19 22:02 EKG Documentation Completion [RC] ASDIRECTED - Assessment/Plan Last 24 Hours: My Active Orders 09/22/19 18:55 Sodium Chloride 0.9% [Saline Flush] 10 ml FLUSH ASDIRECTED PRN Saline Lock Insert [OM.PC] Routine 09/22/19 20:00 NS + KCl 20mEq/L [Normal Saline with 20 mEq KCl] 1,000 ml IV ASDIRECTED 09/22/19 20:55 CULTURE STOOL + SHIGATOX [RM] Stat 09/22/19 21:00 Urinary Catheter Insertion [Insert Urinary Catheter] [OM.PC] Q24H 09/22/19 21:01 Urinary Catheter Assessment [RC] ASDIRECTED 09/22/19 22:01 EKG 12 Lead [EK] Routine 09/22/19 22:02 EKG Documentation Completion [RC] ASDIRECTED
[2019-09-22] MEDS ORDERED: Potassium Chloride 10 MEQ Cap.ER PO ONE (19:53)
[2019-09-22] MEDS ORDERED: NS + KCl 20mEq/L 1,000 ML IV SCH (20:00)
[2019-09-22] MEDS ORDERED: Lactated Ringers 1,000 ML IV ONE (21:13)
[2019-09-22] MEDS ORDERED: Atropine/Diphenoxylate 0.025-2.5 MG Tab PO ONE (22:34)
== END 2019-09-23 09:10 | disposition home or self-care (01) ==
LOC: JP.ED 18:27
DX: E86.0 Dehydration (principal); E87.6 Hypokalemia; K21.9 Gastro-esophageal reflux disease without esophagitis; F41.9 Anxiety disorder, unspecified; F32.9 Major depressive disorder, single episode, unspecified; Z87.891 Personal history of nicotine dependence; Z88.8 Allergy status to other drugs, medicaments and biological substances; Z88.5 Allergy status to narcotic agent; Z79.899 Other long term (current) drug therapy
CPT/HCPCS: 36415; 80048; 81001; 82272; 83735; 84484; 85027; 87046; 87493; 87899; 93005; 96361; 96365; 99283; 99285; A9270; J3480; J7120; 93010

== ENCOUNTER 2019-11-07 14:22 | Emergency (ER) | payer MEDICARE ==
--- NOTE | 2019-11-07 16:11 | EDM.PDOC ---
ED HPI GENERAL MEDICAL PROBLEM - General Chief Complaint: Behavioral/Psych Stated Complaint: EVAL SENT FROM [facility] Time Seen by Provider: 11/07/19 15:10 Source of Information: Reports: Patient, Family, Provider History Limitations: Reports: No Limitations - History of Present Illness INITIAL COMMENTS - FREE TEXT/NARRATIVE: 64-year-old female with several chronic medical and psychiatric issues was sent in from the [place] [facility] in [place] for evaluation. She has been a participatant in the Suboxone clinic for the past year, but is having problems with frequent recurring syncope, anxiety and depression exacerbations and hallucinations. She was on risperidone at one point but it was discontinued 2 weeks ago because of acute kidney injury, and I believe they are trying to decrease her Suboxone treatment. Over the past several weeks she has been occasionally distracted from reality, hallucinating, and is still falling frequently. She was admitted to our hospital within the past month for these recurring syncope episodes and nothing was found. I talked to her Suboxone physician today who referred her to our emergency room, he recommended checking her kidney function, electrolytes, and then hopefully getting her admitted to a psychiatric facility for stabilization once her physical status is cleared. He attempted to get her accepted from [place], but he could not get her admitted without clearance. She lives in [place]. On arrival the patient denied any suicidal ideations or psychiatric issues, however after being here for 45 minutes she started crying and admitted that she is hallucinating frequently. She said she has already fallen "5 times today". Onset: Unknown/Unsure Back Pain Score (Numeric/FACES): 9 - Related Data Allergies Allergy/AdvReac Type Severity Reaction Status Date / Time fentanyl Allergy Cannot Verified 11/07/19 15:01 Remember meperidine [From Demerol] Allergy Cannot Verified 11/07/19 15:01 Remember morphine Allergy Cannot Verified 11/07/19 15:01 Remember codeine AdvReac Nausea Verified 11/07/19 15:01 acetaminophen injection Allergy Cannot Uncoded 11/07/19 17:09 Remember Home Meds: Home Meds Omeprazole 40 mg PO DAILY 04/14/18 [History] Venlafaxine [Effexor XR] 300 mg PO DAILY 04/14/18 [History] Naltrexone 25 mg PO DAILY 03/22/19 [History] traZODone HCl [Trazodone HCl] 50 mg PO BEDTIME 03/22/19 [History] clonazePAM [Klonopin] 1 mg PO TID PRN 07/27/19 [History] Potassium Chloride 10 meq PO TID #20 cap.er 09/22/19 [Rx] buPROPion HCL [Bupropion Xl] 300 mg PO DAILY 09/22/19 [History] Acetaminophen 1 tab PO DAILY 11/07/19 [History] Albuterol Sulfate 1 dose INH ASDIRECTED 11/07/19 [History] Albuterol [Proventil HFA] 2 puff INH Q6H 11/07/19 [History] Buprenorphine HCl/Naloxone HCl [Buprenorp-Nalox 8-2 mg Sl Film] 4 mg PO BID [History] Calcium Acetate [PhosLo] 667 mg PO BID 11/07/19 [History] Ergocalciferol (Vitamin D2) [Vitamin D2] 1 cap PO ASDIRECTED 11/07/19 [History] Magnesium Oxide 1 tab PO DAILY 11/07/19 [History] Past Medical History HEENT History: Reports: Macular Degeneration 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: Reports: GERD 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: Musculoskeletal History: Reports: Back Pain, Chronic Other Musculoskeletal History: Reports h/o R/L sciatica Psychiatric History: Reports: Addiction, Anxiety, Depression - Infectious Disease History Infectious Disease History: Reports: Chicken Pox - Past Surgical History HEENT Surgical History: Reports: Tonsillectomy Female Surgical History: Reports: Hysterectomy Neurological Surgical History: Reports: Lumbar Spine Musculoskeletal Surgical History: Reports: Shoulder Surgery Other Musculoskeletal Surgeries/Procedures:: back surgery Social & Family History - Family History Family Medical History: Unobtainable - Tobacco Use Smoking Status *Q: Heavy Tobacco Smoker Years of Tobacco use: 30 Packs/Tins Daily: 0.5 Used Tobacco, but Quit: No - Caffeine Use Caffeine Use: Reports: None Caffeine Use Comment: daily coffee use - Recreational Drug Use Recreational Drug Use: Yes Recreational Drug Type: Reports: Marijuana/Hashish Recreational Drug Use Frequency: Monthly ED ROS GENERAL - Review of Systems Review Of Systems: See Below Constitutional: Reports: Malaise. Denies: Fever, Chills HEENT: Denies: Vision Change Respiratory: Denies: Shortness of Breath GI/Abdominal: Denies: Nausea, Vomiting : Denies: Frequency, Urgency Musculoskeletal: Reports: Back Pain, Other (Fibromyalgia) Neurological: Reports: Syncope. Denies: Headache Psychiatric: Reports: Anxiety, Depression, Hallucinations ED EXAM, GENERAL - Physical Exam Exam: See Below Exam Limited By: No Limitations General Appearance: Alert, No Apparent Distress Eye Exam: Bilateral Eye: Normal Inspection Head: Atraumatic Respiratory/Chest: No Respiratory Distress, Lungs Clear Cardiovascular: Regular Rate, Rhythm. No: Extra Beats GI/Abdominal: Soft, Non-Tender Back Exam: Other (Reacts with tenderness to any palpation or percussion of the flanks bilaterally, even to light palpation however) Extremities: Normal Inspection. No: Pedal Edema Neurological: Alert, Oriented Psychiatric: Depressed Mood, Flat Affect, Tearful Skin Exam: Warm, Dry Course - Vital Signs Last Recorded V/S: Last Vital Signs Temp 95.8 F L 11/07/19 14:59 Pulse 74 11/07/19 14:59 Resp 12 11/07/19 14:59 BP 112/76 11/07/19 14:59 Pulse Ox 94 L 11/07/19 14:59 - Orders/Labs/Meds Orders: Active Orders 24 hr Category Date Time Status EKG Documentation Completion [RC] ASDIRECTED Care 11/07/19 17:57 Active EKG 12 Lead [EK] Routine Ther 11/07/19 17:57 Ordered Labs: Laboratory Tests 11/07/19 11/07/19 11/07/19 Range/Units 15:31 15:31 16:09 WBC 7.2 (4.5-11.0) K/uL RBC 4.42 (3.30-5.50) M/uL Hgb 12.7 D (12.0-15.0) g/dL Hct 40.9 (36.0-48.0) % MCV 93 (80-98) fL MCH 29 (27-31) pg MCHC 31 L (32-36) % Plt Count 351 (150-400) K/uL Neut % (Auto) 63 (36-66) % Lymph % (Auto) 26 (24-44) % [place] % (Auto) 7 H (2-6) % Eos % (Auto) 3 (2-4) % Baso % (Auto) 1 (0-1) % Sodium 138 L (140-148) mmol/L Potassium 4.0 (3.6-5.2) mmol/L Chloride 102 (100-108) mmol/L Carbon Dioxide 28 (21-32) mmol/L Anion Gap 12.0 (5.0-14.0) mmol/L BUN 20 H (7-18) mg/dL Creatinine 1.5 H (0.6-1.0) mg/dL Est Cr Clr Drug Dosing 30.76 mL/min Estimated GFR (MDRD) 35 L (>60) Glucose 79 (74-106) mg/dL Calcium 8.4 L (8.5-10.1) mg/dL Creatine Kinase (26-192) U/L Troponin I (0.000-0.056) ng/mL TSH, Ultra Sensitive (0.358-3.740) uIU/mL Urine Color Yellow (YELLOW) Urine Appearance Clear (CLEAR) Urine pH 7.0 (5.0-8.0) Ur Specific [place] 1.015 (1.008-1.030) Urine Protein Negative (NEGATIVE) mg/dL Urine Glucose (UA) Negative (NEGATIVE) mg/dL Urine Ketones Negative (NEGATIVE) mg/dL Urine Occult Blood Negative (NEGATIVE) Urine Nitrite Negative (NEGATIVE) Urine Bilirubin Negative (NEGATIVE) Urine Urobilinogen 0.2 (0.2-1.0) EU/dL Ur Leukocyte Esterase Negative (NEGATIVE) Urine Opiates Screen (NEGATIVE) Ur Oxycodone Screen (NEGATIVE) Urine Methadone Screen (NEGATIVE) Ur Propoxyphene Screen (NEGATIVE) Ur Barbiturates Screen (NEGATIVE) Ur Tricyclics Screen (NEGATIVE) Ur Phencyclidine Scrn (NEGATIVE) Ur Amphetamine Screen (NEGATIVE) U Methamphetamines Scrn (NEGATIVE) Urine MDMA Screen (NEGATIVE) U Benzodiazepines Scrn (NEGATIVE) U Cocaine Metab Screen (NEGATIVE) U Marijuana (THC) Screen (NEGATIVE) 11/07/19 11/07/19 11/07/19 Range/Units 16:14 16:21 17:44 WBC (4.5-11.0) K/uL RBC (3.30-5.50) M/uL Hgb (12.0-15.0) g/dL Hct (36.0-48.0) % MCV (80-98) fL MCH (27-31) pg MCHC (32-36) % Plt Count (150-400) K/uL Neut % (Auto) (36-66) % Lymph % (Auto) (24-44) % [place] % (Auto) (2-6) % Eos % (Auto) (2-4) % Baso % (Auto) (0-1) % Sodium (140-148) mmol/L Potassium (3.6-5.2) mmol/L Chloride (100-108) mmol/L Carbon Dioxide (21-32) mmol/L Anion Gap (5.0-14.0) mmol/L BUN (7-18) mg/dL Creatinine (0.6-1.0) mg/dL Est Cr Clr Drug Dosing mL/min Estimated GFR (MDRD) (>60) Glucose (74-106) mg/dL Calcium (8.5-10.1) mg/dL Creatine Kinase 126 (26-192) U/L Troponin I (0.000-0.056) ng/mL TSH, Ultra Sensitive 5.181 H (0.358-3.740) uIU/mL Urine Color (YELLOW) Urine Appearance (CLEAR) Urine pH (5.0-8.0) Ur Specific [place] (1.008-1.030) Urine Protein (NEGATIVE) mg/dL Urine Glucose (UA) (NEGATIVE) mg/dL Urine Ketones (NEGATIVE) mg/dL Urine Occult Blood (NEGATIVE) Urine Nitrite (NEGATIVE) Urine Bilirubin (NEGATIVE) Urine Urobilinogen (0.2-1.0) EU/dL Ur Leukocyte Esterase (NEGATIVE) Urine Opiates Screen Negative (NEGATIVE) Ur Oxycodone Screen Presumptive positive H (NEGATIVE) Urine Methadone Screen Negative (NEGATIVE) Ur Propoxyphene Screen Negative (NEGATIVE) Ur Barbiturates Screen Negative (NEGATIVE) Ur Tricyclics Screen Negative (NEGATIVE) Ur Phencyclidine Scrn Negative (NEGATIVE) Ur Amphetamine Screen Negative (NEGATIVE) U Methamphetamines Scrn Negative (NEGATIVE) Urine MDMA Screen Negative (NEGATIVE) U Benzodiazepines Scrn Negative (NEGATIVE) U Cocaine Metab Screen Negative (NEGATIVE) U Marijuana (THC) Screen Negative (NEGATIVE) 11/07/19 Range/Units 17:44 WBC (4.5-11.0) K/uL RBC (3.30-5.50) M/uL Hgb (12.0-15.0) g/dL Hct (36.0-48.0) % MCV (80-98) fL MCH (27-31) pg MCHC (32-36) % Plt Count (150-400) K/uL Neut % (Auto) (36-66) % Lymph % (Auto) (24-44) % [place] % (Auto) (2-6) % Eos % (Auto) (2-4) % Baso % (Auto) (0-1) % Sodium (140-148) mmol/L Potassium (3.6-5.2) mmol/L Chloride (100-108) mmol/L Carbon Dioxide (21-32) mmol/L Anion Gap (5.0-14.0) mmol/L BUN (7-18) mg/dL Creatinine (0.6-1.0) mg/dL Est Cr Clr Drug Dosing mL/min Estimated GFR (MDRD) (>60) Glucose (74-106) mg/dL Calcium (8.5-10.1) mg/dL Creatine Kinase (26-192) U/L Troponin I < 0.017 (0.000-0.056) ng/mL TSH, Ultra Sensitive (0.358-3.740) uIU/mL Urine Color (YELLOW) Urine Appearance (CLEAR) Urine pH (5.0-8.0) Ur Specific [place] (1.008-1.030) Urine Protein (NEGATIVE) mg/dL Urine Glucose (UA) (NEGATIVE) mg/dL Urine Ketones (NEGATIVE) mg/dL Urine Occult Blood (NEGATIVE) Urine Nitrite (NEGATIVE) Urine Bilirubin (NEGATIVE) Urine Urobilinogen (0.2-1.0) EU/dL Ur Leukocyte Esterase (NEGATIVE) Urine Opiates Screen (NEGATIVE) Ur Oxycodone Screen (NEGATIVE) Urine Methadone Screen (NEGATIVE) Ur Propoxyphene Screen (NEGATIVE) Ur Barbiturates Screen (NEGATIVE) Ur Tricyclics Screen (NEGATIVE) Ur Phencyclidine Scrn (NEGATIVE) Ur Amphetamine Screen (NEGATIVE) U Methamphetamines Scrn (NEGATIVE) Urine MDMA Screen (NEGATIVE) U Benzodiazepines Scrn (NEGATIVE) U Cocaine Metab Screen (NEGATIVE) U Marijuana (THC) Screen (NEGATIVE) Meds: Medications Discontinued Medications Generic Name Dose Route Start Last Admin Trade Name Freq PRN Reason Stop Dose Admin Diphenoxylate HCl/Atropine 2 tab 11/07/19 19:11 11/07/19 19:19 Lomotil 0.025-2.5 Mg PO 11/07/19 19:12 2 tab ONETIME ONE Administration Sodium Chloride 1,000 mls @ 250 mls/hr 11/07/19 17:00 11/07/19 16:40 Normal Saline IV 250 mls/hr ASDIRECTED ALEX Administration - Re-Assessments/Exams Free Text/Narrative Re-Assessment/Exam: 11/07/19 16:55 Patient initially claimed she was here only to get her "kidneys checked", however after the labs returned she admitted she had severe increased depression , hallucinations, and it was not managing on her own. She was tearful and very afraid that she was "falling all the time". I did have a discussion with Carter Araizamoncho, her physician that most recently has seen her and her Suboxone prescriber, as well as her daughter, and all were concerned that she should be admitted for psychiatric stabilization. 11/07/19 17:32 After the patient had been in the emergency room for over an hour, she became more forthcoming about her hallucinations and claimed that she saw her ex and dog running around her room at home recently. 11/07/19 17:47 Discussed the situation with the hospitalist service in [place], she was kindly accepted for initial medical evaluation of the acute kidney injury, recurring syncope and ultimately her escalating unstable psychiatric condition. 11/07/19 18:04 Troponin is negative, CK is normal. EKG shows no acute findings. Transfer was arranged. Departure - Departure Time of Disposition: 19:00 Disposition: DC/Tfer to Other 70 Clinical Impression: Hallucinations, Mild dehydration, Acute kidney injury - Discharge Information Referrals: PCP,None [Primary Care Provider] - Forms: ED Department Discharge Sepsis Event Note - Evaluation Sepsis Screening Result: No Definite Risk - Focused Exam Date Exam was Performed: 11/08/19 Time Exam was Performed: 17:16 - My Orders Last 24 Hours: My Active Orders 11/07/19 17:57 EKG Documentation Completion [RC] ASDIRECTED EKG 12 Lead [EK] Routine - Assessment/Plan Last 24 Hours: My Active Orders 11/07/19 17:57 EKG Documentation Completion [RC] ASDIRECTED EKG 12 Lead [EK] Routine
[2019-11-07] MEDS ORDERED: Sodium Chloride 0.9% 1,000 ML IV SCH (17:00)
[2019-11-07] MEDS ORDERED: Atropine/Diphenoxylate 0.025-2.5 MG Tab PO ONE (19:11)
== END 2019-11-07 19:00 | disposition other institution (70) ==
LOC: JP.ED 14:22
DX: N17.9 Acute kidney failure, unspecified (principal); E86.0 Dehydration; R44.3 Hallucinations, unspecified; K21.9 Gastro-esophageal reflux disease without esophagitis; F41.9 Anxiety disorder, unspecified; F17.210 Nicotine dependence, cigarettes, uncomplicated; F32.9 Major depressive disorder, single episode, unspecified; Z88.5 Allergy status to narcotic agent; Z88.6 Allergy status to analgesic agent; Z79.899 Other long term (current) drug therapy
CPT/HCPCS: 36415; 80048; 80305; 81003; 82550; 84443; 84484; 85025; 93005; 93010; 96360; 96361; 99285; A9270; J7030

== ENCOUNTER 2021-06-30 23:55 | Emergency (ER) | payer MEDICARE, MEDICAID ==
--- NOTE | 2021-07-01 00:05 | EDM.PDOC ---
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 hitting her head on the floor. There was no loss of consciousness that the patient recalls and a friend apparently took her home but her head hurt too bad and she was complaining of bleeding from the scalp and wanted be brought in for evaluation. The patient has these "drop attacks" where she just suddenly falls causing injury. She has had this worked up through her primary doctor but they have not been able to determine why she is having these episodes. She does occasionally use a walker to get around but tonight did not have it with her. She is on Suboxone which is prescribed by her provider at [facility]. She does have an extensive history for mental illness including depression and general social anxiety. She is on Suboxone for chronic pain due to her low back. Head Pain Score (Numeric/FACES): 9 - Related Data Allergies Allergy/AdvReac Type Severity Reaction Status Date / Time fentanyl Allergy Cannot Verified 07/01/21 00:02 Remember meperidine [From Demerol] Allergy Cannot Verified 07/01/21 00:02 Remember morphine Allergy Cannot Verified 07/01/21 00:02 Remember codeine AdvReac Nausea Verified 07/01/21 00:02 acetaminophen injection Allergy Cannot Uncoded 07/01/21 00:02 Remember Home Meds: Home Meds Omeprazole 40 mg PO DAILY 04/14/18 [History] Venlafaxine [Effexor XR] 300 mg PO DAILY 04/14/18 [History] Naltrexone 25 mg PO DAILY 03/22/19 [History] traZODone HCl [Trazodone HCl] 50 mg PO BEDTIME 03/22/19 [History] clonazePAM [Klonopin] 1 mg PO TID PRN 07/27/19 [History] Potassium Chloride 10 meq PO TID #20 cap.er 09/22/19 [Rx] buPROPion HCL [Bupropion Xl] 300 mg PO DAILY 09/22/19 [History] Acetaminophen 1 tab PO DAILY 11/07/19 [History] Albuterol Sulfate 1 dose INH ASDIRECTED 11/07/19 [History] Albuterol [Proventil HFA] 2 puff INH Q6H 11/07/19 [History] Buprenorphine HCl/Naloxone HCl [Buprenorp-Nalox 8-2 mg Sl Film] 4 mg PO BID 11/07/19 [History] Calcium Acetate [PhosLo] 667 mg PO BID 11/07/19 [History] Ergocalciferol (Vitamin D2) [Vitamin D2] 1 cap PO ASDIRECTED 11/07/19 [History] Magnesium Oxide 1 tab PO DAILY 11/07/19 [History] Past Medical History HEENT History: Reports: Macular Degeneration 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: Reports: GERD 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: Musculoskeletal History: Reports: Back Pain, Chronic Other Musculoskeletal History: Reports h/o R/L sciatica Psychiatric History: Reports: Addiction, Anxiety, Depression - Infectious Disease History Infectious Disease History: Reports: Chicken Pox - Past Surgical History HEENT Surgical History: Reports: Tonsillectomy Female Surgical History: Reports: Hysterectomy Neurological Surgical History: Reports: Lumbar Spine Musculoskeletal Surgical History: Reports: Shoulder Surgery Other Musculoskeletal Surgeries/Procedures:: back surgery Social & Family History - Family History Family Medical History: Unobtainable - Caffeine Use Caffeine Use: Reports: None Caffeine Use Comment: daily coffee use ED ROS GENERAL - Review of Systems Review Of Systems: See Below Constitutional: Reports: No Symptoms HEENT: Reports: Other (Golf laceration and had pain) Respiratory: Reports: No Symptoms Cardiovascular: Reports: No Symptoms Endocrine: Reports: No Symptoms GI/Abdominal: Reports: No Symptoms : Reports: No Symptoms Musculoskeletal: Reports: No Symptoms Skin: Reports: No Symptoms Neurological: Reports: Headache Psychiatric: Reports: Anxiety Hematologic/Lymphatic: Reports: No Symptoms Immunologic: Reports: No Symptoms ED EXAM, HEAD INJURY - Physical Exam Exam: See Below Exam Limited By: No Limitations General Appearance: Alert, Anxious, Mild Distress Head: Normocephalic, Scalp Lacerations (Extremely superficial 0.4 cm laceration left parietal scalp), Scalp Tenderness (Left parietal). No: Active Bleeding Nexus Criteria: No: Posterior, Midline Cervical Tenderness, Evidence of Intoxication, Altered Level of Consciousness, Focal Neurological Deficit, Painful Distraction Injuries Eyes: Bilateral Eye: EOMI, PERRL Nose: Normal Inspection, Normal Mucousa Throat/Mouth: Normal Inspection, Normal Oropharynx, Normal Voice, No Airway Compromise Neck: Non-Tender, Full Range of Motion Respiratory: No Respiratory Distress, Lungs Clear, Normal Breath Sounds Cardiovascular: Normal Peripheral Pulses, Regular Rate, Rhythm, No Murmur GI/Abdominal Exam: Normal Bowel Sounds, Soft, Non-Tender Extremities: Normal Inspection Neurologic: bowling ball grader II-XII nml As Tested, No Motor/Sensory Deficits, Alert, Normal Mood/Affect, Oriented x 3 - Anahi Coma Score Best Eye Response (Anahi): (4) Open Spontaneously Best Verbal Response (Anahi): (5) Oriented Best Motor Response (Anahi): (6) Obeys Commands Anahi Total: 15 #1 Interpretation EKG Date: 07/01/21 Time: 00:25 Rhythm: NSR Rate (Beats/Min): 76 [place]: Normal P-Wave: Present QRS: Normal (The precordial leads) ST-T: Normal (Nonspecific ST-T changes) QT: Normal Comparison: No Change Course - Vital Signs Last Recorded V/S: Last Vital Signs Temp 36.6 C 07/01/21 00:09 Pulse 79 07/01/21 00:09 Resp 16 07/01/21 00:09 BP 122/81 07/01/21 00:09 Pulse Ox 93 L 07/01/21 00:09 - Orders/Labs/Meds Orders: Active Orders 24 hr Category Date Time Status EKG 12 Lead [EK] Routine Ther 06/30/21 23:59 Ordered Labs: Laboratory Tests 06/30/21 06/30/21 07/01/21 Range/Units 00:09 00:09 02:26 WBC 9.3 (4.5-11.0) K/uL RBC 5.08 (3.30-5.50) M/uL Hgb 14.1 (12.0-15.0) g/dL Hct 45.3 (36.0-48.0) % MCV 89 (80-98) fL MCH 28 (27-31) pg MCHC 31 L (32-36) % Plt Count 348 (150-400) K/uL Neut % (Auto) 59.2 (36-66) % Lymph % (Auto) 30.6 (24-44) % [place] % (Auto) 6.7 H (2-6) % Eos % (Auto) 2.9 (2-4) % Baso % (Auto) 0.6 (0-1) % Sodium 138 L (140-148) mmol/L Potassium 3.9 (3.6-5.2) mmol/L Chloride 102 (100-108) mmol/L Carbon Dioxide 28 (21-32) mmol/L Anion Gap 11.9 (5.0-14.0) mmol/L BUN 37 H D (7-18) mg/dL Creatinine 1.4 H (0.6-1.0) mg/dL Est Cr Clr Drug Dosing 32.11 mL/min Estimated GFR (MDRD) 38 L (>60) Glucose 91 (74-106) mg/dL Calcium 8.8 (8.5-10.1) mg/dL Total Bilirubin 0.2 (0.2-1.0) mg/dL AST 16 D (15-37) U/L ALT 20 (12-78) U/L Alkaline Phosphatase 136 H (46-116) U/L Total Protein 7.1 (6.4-8.2) g/dL Albumin 3.3 L (3.4-5.0) g/dL Globulin 3.8 H (2.3-3.5) g/dL Albumin/Globulin Ratio 0.9 L (1.2-2.2) Urine Color Yellow (YELLOW) Urine Appearance Clear (CLEAR) Urine pH 5.5 (5.0-8.0) Ur Specific [place] >= 1.030 (1.008-1.030) Urine Protein Trace H (NEGATIVE) mg/dL Urine Glucose (UA) Negative (NEGATIVE) mg/dL Urine Ketones Negative (NEGATIVE) mg/dL Urine Occult Blood Negative (NEGATIVE) Urine Nitrite Negative (NEGATIVE) Urine Bilirubin Negative (NEGATIVE) Urine Urobilinogen 1.0 (0.2-1.0) EU/dL Ur Leukocyte Esterase Negative (NEGATIVE) Urine RBC 0-5 (0-5) Urine WBC 0-5 (0-5) Ur Epithelial Cells Few Amorphous Sediment Not seen Urine Bacteria Few Urine Mucus Moderate - Radiology Interpretation Free Text/Narrative:: I reviewed the CT of the head images as well as the report. The report is as follows: FINDINGS: CSF spaces: Within normal limits for age. Brain parenchyma: There are nonspecific low attenuation white matter changes consistent with chronic microvascular disease. No sign of mass, hemorrhage, or midline shift. Skull base and calvarium: The visualized paranasal sinuses and mastoid air cells demonstrate no acute or significant findings. The visualized orbits are grossly unremarkable. No skull fractures. IMPRESSION: 1. No acute findings. 2. Nonspecific white matter disease, typical of chronic microvascular disease. Please note that all CT scans at this facility use dose modulation, iterative reconstruction, and/or weight-based dosing when appropriate to reduce radiation dose to as low as reasonably achievable. Dictated by Morena Roldan MD @ 07/01/2021 2:24:29 AM - Re-Assessments/Exams Free Text/Narrative Re-Assessment/Exam: 07/01/21 02:30 I reviewed the patient's labs showing a normal CBC with a leukocyte count of 9.3, hemoglobin of 14.1, and platelet count of 348,000. Her comprehensive metabolic panel is a sodium 139, potassium 3.9, chloride of 102, bicarbonate of 28, BUN of 37 with a creatinine of 1.4 and a glucose of 91. Her GFR is calculated at 38 which would put her at stage IIIb renal failure. Her AST, ALT, and alkaline phosphatase are all within normal limits. Urinalysis is obtained and is negative. Patient underwent a CT of the head to evaluate for any intracranial abnormalities due to her fall and striking the head. There was no acute abnormalities noted. The calvarium was intact without evidence for fracture. The patient did have a very superficial scratch on her left parietal scalp which was closed with Dermabond. She appears to have pain well out of proportion to any findings which may be consistent with her Suboxone use. At th is time, I believe the patient is suitable for discharge home. Certainly the repeated falls is not new and beyond the scope of the work-up in the ED today. She should follow-up with her primary care provider at [facility] in [place]. Departure - Departure Time of Disposition: 02:42 Disposition: Home, Self-Care 01 Clinical Impression: Multiple falls, Chronic pain syndrome, Pain management contract agreement Closed head injury Qualifiers: Encounter type: initial encounter Qualified Code(s): S09.90XA - Unspecified injury of head, initial encounter Scalp laceration Qualifiers: Encounter type: initial encounter Qualified Code(s): S01.01XA - Laceration without foreign body of scalp, initial encounter - Discharge Information Instructions: Fall Prevention in the Home, Adult, [id number] Referrals: PCP,None [Primary Care Provider] - Forms: ED Department Discharge Care Plan Goals: Your work-up today has shown that you have a very mild superficial scalp laceration which will heal without any incident and no evidence for any significant injury to the brain or skull. You do appear to be a little dehydrated which may be contributing to your constipation. I would recommend increasing your water intake which will also help your kidney function. Follow- up with Dr. Frye concerning the need for refills of your medication as we do not typically refill medications out of the emergency room. Sepsis Event Note (ED) - Focused Exam Vital Signs: Vital Signs Temp Pulse Resp BP Pulse Ox 07/01/21 00:09 36.6 C 79 16 122/81 93 L - My Orders Last 24 Hours: My Active Orders 06/30/21 23:59 EKG 12 Lead [EK] Routine - Assessment/Plan Last 24 Hours: My Active Orders 06/30/21 23:59 EKG 12 Lead [EK] Routine
--- NOTE | 2021-07-01 02:25 | CRLCT ---
For Patients: As a result of the Century Cures Act, medical imaging exams and procedure reports are released immediately into your electronic medical record. You may view this report before your referring provider. If you have questions, please contact your health care provider. INDICATION: Multiple falls, head injury TECHNIQUE: Head CT without contrast. COMPARISON: July 27, 2019 FINDINGS: CSF spaces: Within normal limits for age. Brain parenchyma: There are nonspecific low attenuation white matter changes consistent with chronic microvascular disease. No sign of mass, hemorrhage, or midline shift. Skull base and calvarium: The visualized paranasal sinuses and mastoid air cells demonstrate no acute or significant findings. The visualized orbits are grossly unremarkable. No skull fractures. IMPRESSION: 1. No acute findings. 2. Nonspecific white matter disease, typical of chronic microvascular disease. Please note that all CT scans at this facility use dose modulation, iterative reconstruction, and/or weight-based dosing when appropriate to reduce radiation dose to as low as reasonably achievable. Dictated by Morena Roldan MD @ 07/01/2021 2:24:29 AM (Electronically Signed)
== END 2021-07-01 06:57 | disposition home or self-care (01) ==
LOC: JP.ED 23:55
DX: S01.01XA Laceration without foreign body of scalp, initial encounter (principal); G89.4 Chronic pain syndrome; K21.9 Gastro-esophageal reflux disease without esophagitis; Z88.5 Allergy status to narcotic agent; Z88.8 Allergy status to other drugs, medicaments and biological substances; Z79.899 Other long term (current) drug therapy; W18.09XA Striking against other object with subsequent fall, initial encounter
CPT/HCPCS: 36415; 70450; 80053; 81001; 85025; 93005; 99285-25

== ENCOUNTER 2021-08-11 21:50 | Inpatient (IN) | payer MEDICARE, MEDICAID ==
[2021-08-11] MEDS ORDERED: Sodium Chloride 0.9% 500 ML IV ONE (22:02)
[2021-08-11] MEDS ORDERED: Sodium Chloride 0.9% 10 ML Syringe FLUSH PRN (22:02)
[2021-08-11 23:45] LABS: CORONAVIRUS COVID-19 NAA POSITIVE (NEGATIVE)
[2021-08-12] MEDS ORDERED: traMADol 50 MG Tab PO ONE (02:35)
[2021-08-12] MEDS ORDERED: Albuterol 8 GM Inhaler INH PRN (06:06)
[2021-08-12] MEDS ORDERED: Dexamethasone 4 MG/ML SDV IVPUSH ONE (06:06)
[2021-08-12] MEDS: Pantoprazole 40 MG Tab.CR PO SCH (07:56)
[2021-08-12] MEDS: buPROPion 150 MG Tab.ER PO SCH (09:41)
[2021-08-12] MEDS: Potassium Chloride 10 MEQ Cap.ER PO SCH ×3 (09:42→21:07)
[2021-08-12] MEDS: Venlafaxine 75 MG Cap.ER PO SCH (09:42)
[2021-08-12] MEDS: Calcium Acetate 667 MG Cap PO SCH ×2 (09:42→18:03)
[2021-08-12] MEDS: Magnesium Oxide 400 MG Tab PO SCH (09:42)
[2021-08-12] MEDS: ClonazePAM 1 MG Tab PO PRN (09:42)
[2021-08-12] MEDS ORDERED: Sodium Chloride 0.9% 10 ML Syringe FLUSH PRN (12:12)
[2021-08-12] MEDS ORDERED: Ondansetron 4 MG/2 ML SDV IV PRN (12:12)
[2021-08-12] MEDS ORDERED: Polyethylene Glycol 3350 Powder 17 GM Packet PO PRN (12:12)
[2021-08-12] MEDS: Enoxaparin 40 MG/0.4 ML Syringe SUBCUT SCH (13:12)
[2021-08-12] MEDS: Buprenorphine/Naloxone 2-0.5 MG Tab.SL SL SCH ×3 (14:07→21:07)
[2021-08-12] MEDS ORDERED: Non-Formulary Medication 1 Each (Buprenorphine Hcl/Naloxone Hcl [Buprenorphine-Nalox 8-2mg PO SCH (21:00)
[2021-08-12] MEDS: traZODone 50 MG Tab PO SCH (21:07)
[2021-08-13] MEDS: ClonazePAM 1 MG Tab PO PRN ×3 (04:43→21:56)
[2021-08-13] MEDS: Dexamethasone 4 MG/ML SDV IVPUSH SCH (06:47)
[2021-08-13] MEDS ORDERED: Potassium Chloride 20 MEQ Tab.ER PO ONE ×2 (09:00→17:00)
[2021-08-13] MEDS: Potassium Chloride 10 MEQ Cap.ER PO SCH ×3 (09:08→20:49)
[2021-08-13] MEDS: buPROPion 150 MG Tab.ER PO SCH (09:08)
[2021-08-13] MEDS: Venlafaxine 75 MG Cap.ER PO SCH (09:08)
[2021-08-13] MEDS: Buprenorphine/Naloxone 2-0.5 MG Tab.SL SL SCH ×3 (09:08→20:49)
[2021-08-13] MEDS: Calcium Acetate 667 MG Cap PO SCH ×2 (09:09→17:51)
[2021-08-13] MEDS: Magnesium Oxide 400 MG Tab PO SCH (09:09)
[2021-08-13] MEDS: Pantoprazole 40 MG Tab.CR PO SCH (09:09)
[2021-08-13] MEDS: Enoxaparin 40 MG/0.4 ML Syringe SUBCUT SCH (14:49)
[2021-08-13] MEDS ORDERED: REMDESIVIR 200 MG in Sodium Chloride 0.9% 250 ML IV ONE (17:30)
[2021-08-13] MEDS: traZODone 50 MG Tab PO SCH (20:49)
[2021-08-14] MEDS: Dexamethasone 4 MG/ML SDV IVPUSH SCH (05:31)
[2021-08-14] MEDS: Calcium Acetate 667 MG Cap PO SCH ×2 (08:53→17:00)
[2021-08-14] MEDS: Venlafaxine 75 MG Cap.ER PO SCH (08:53)
[2021-08-14] MEDS: Potassium Chloride 10 MEQ Cap.ER PO SCH ×3 (08:53→20:33)
[2021-08-14] MEDS: Pantoprazole 40 MG Tab.CR PO SCH (08:54)
[2021-08-14] MEDS: buPROPion 150 MG Tab.ER PO SCH (08:54)
[2021-08-14] MEDS: ClonazePAM 1 MG Tab PO PRN ×2 (08:54→22:37)
[2021-08-14] MEDS: Magnesium Oxide 400 MG Tab PO SCH (08:54)
[2021-08-14] MEDS: Buprenorphine/Naloxone 2-0.5 MG Tab.SL SL SCH ×3 (08:54→20:34)
[2021-08-14] MEDS: Enoxaparin 40 MG/0.4 ML Syringe SUBCUT SCH (12:28)
[2021-08-14] MEDS: REMDESIVIR 100 MG in Sodium Chloride 0.9% 100 ML IV SCH (17:00)
[2021-08-14] MEDS: traZODone 50 MG Tab PO SCH (20:34)
[2021-08-15] MEDS: Dexamethasone 4 MG/ML SDV IVPUSH SCH (05:05)
[2021-08-15] MEDS: buPROPion 150 MG Tab.ER PO SCH (08:30)
[2021-08-15] MEDS: Buprenorphine/Naloxone 2-0.5 MG Tab.SL SL SCH ×3 (08:30→20:00)
[2021-08-15] MEDS: Potassium Chloride 10 MEQ Cap.ER PO SCH ×3 (08:30→20:00)
[2021-08-15] MEDS: Calcium Acetate 667 MG Cap PO SCH ×2 (08:30→16:25)
[2021-08-15] MEDS: Venlafaxine 75 MG Cap.ER PO SCH (08:31)
[2021-08-15] MEDS: Pantoprazole 40 MG Tab.CR PO SCH (08:31)
[2021-08-15] MEDS: Magnesium Oxide 400 MG Tab PO SCH (08:31)
[2021-08-15] MEDS: Enoxaparin 40 MG/0.4 ML Syringe SUBCUT SCH (13:06)
[2021-08-15] MEDS: ClonazePAM 1 MG Tab PO PRN ×2 (13:14→20:00)
[2021-08-15] MEDS: REMDESIVIR 100 MG in Sodium Chloride 0.9% 100 ML IV SCH (16:24)
[2021-08-15] MEDS: traZODone 50 MG Tab PO SCH (20:00)
[2021-08-16] MEDS: Dexamethasone 4 MG/ML SDV IVPUSH SCH (05:25)
[2021-08-16] MEDS: Calcium Acetate 667 MG Cap PO SCH ×2 (08:30→17:37)
[2021-08-16] MEDS: Potassium Chloride 10 MEQ Cap.ER PO SCH ×3 (08:30→20:22)
[2021-08-16] MEDS: Pantoprazole 40 MG Tab.CR PO SCH (08:30)
[2021-08-16] MEDS: Magnesium Oxide 400 MG Tab PO SCH (08:30)
[2021-08-16] MEDS: Buprenorphine/Naloxone 2-0.5 MG Tab.SL SL SCH ×3 (08:31→20:23)
[2021-08-16] MEDS: Venlafaxine 75 MG Cap.ER PO SCH (08:31)
[2021-08-16] MEDS: buPROPion 150 MG Tab.ER PO SCH (08:31)
[2021-08-16] MEDS: ClonazePAM 1 MG Tab PO PRN ×2 (13:48→20:22)
[2021-08-16] MEDS: Enoxaparin 40 MG/0.4 ML Syringe SUBCUT SCH (13:49)
[2021-08-16] MEDS: REMDESIVIR 100 MG in Sodium Chloride 0.9% 100 ML IV SCH (17:37)
[2021-08-16] MEDS: Benzonatate 100 MG Cap PO PRN (20:22)
[2021-08-16] MEDS: traZODone 50 MG Tab PO SCH (20:22)
[2021-08-17] MEDS: Dexamethasone 4 MG/ML SDV IVPUSH SCH (05:58)
[2021-08-17] MEDS: Potassium Chloride 10 MEQ Cap.ER PO SCH ×4 (09:49→20:18)
[2021-08-17] MEDS: Venlafaxine 75 MG Cap.ER PO SCH (09:49)
[2021-08-17] MEDS: Buprenorphine/Naloxone 2-0.5 MG Tab.SL SL SCH ×4 (09:49→20:18)
[2021-08-17] MEDS: Pantoprazole 40 MG Tab.CR PO SCH (09:50)
[2021-08-17] MEDS: Calcium Acetate 667 MG Cap PO SCH ×2 (09:50→16:52)
[2021-08-17] MEDS: Magnesium Oxide 400 MG Tab PO SCH (09:50)
[2021-08-17] MEDS: buPROPion 150 MG Tab.ER PO SCH (09:51)
[2021-08-17] MEDS: Enoxaparin 40 MG/0.4 ML Syringe SUBCUT SCH (13:40)
[2021-08-17] MEDS: REMDESIVIR 100 MG in Sodium Chloride 0.9% 100 ML IV SCH (16:52)
[2021-08-17] MEDS: ClonazePAM 1 MG Tab PO PRN ×2 (18:04→21:55)
[2021-08-17] MEDS: Benzonatate 100 MG Cap PO PRN (19:51)
[2021-08-17] MEDS: traZODone 50 MG Tab PO SCH ×2 (19:54→20:18)
[2021-08-18] MEDS: Dexamethasone 4 MG/ML SDV IVPUSH SCH (06:12)
[2021-08-18] MEDS: Potassium Chloride 10 MEQ Cap.ER PO SCH ×3 (08:21→20:06)
[2021-08-18] MEDS: Pantoprazole 40 MG Tab.CR PO SCH (08:21)
[2021-08-18] MEDS: Venlafaxine 75 MG Cap.ER PO SCH (08:21)
[2021-08-18] MEDS: buPROPion 150 MG Tab.ER PO SCH (08:21)
[2021-08-18] MEDS: Magnesium Oxide 400 MG Tab PO SCH (08:21)
[2021-08-18] MEDS: Calcium Acetate 667 MG Cap PO SCH ×2 (08:21→17:01)
[2021-08-18] MEDS: Buprenorphine/Naloxone 2-0.5 MG Tab.SL SL SCH ×3 (08:21→20:06)
[2021-08-18] MEDS: ClonazePAM 1 MG Tab PO PRN ×2 (08:39→20:06)
[2021-08-18] MEDS: Enoxaparin 40 MG/0.4 ML Syringe SUBCUT SCH (14:01)
[2021-08-18] MEDS: traZODone 50 MG Tab PO SCH (20:06)
[2021-08-19] MEDS: Dexamethasone 4 MG/ML SDV IVPUSH SCH (06:43)
[2021-08-19] MEDS: Calcium Acetate 667 MG Cap PO SCH ×2 (08:35→16:31)
[2021-08-19] MEDS: Venlafaxine 75 MG Cap.ER PO SCH (08:35)
[2021-08-19] MEDS: Buprenorphine/Naloxone 2-0.5 MG Tab.SL SL SCH ×3 (08:35→21:37)
[2021-08-19] MEDS: buPROPion 150 MG Tab.ER PO SCH (08:35)
[2021-08-19] MEDS: Magnesium Oxide 400 MG Tab PO SCH (08:35)
[2021-08-19] MEDS: Potassium Chloride 10 MEQ Cap.ER PO SCH ×3 (08:35→21:36)
[2021-08-19] MEDS: Pantoprazole 40 MG Tab.CR PO SCH (08:35)
[2021-08-19] MEDS: Enoxaparin 40 MG/0.4 ML Syringe SUBCUT SCH (13:11)
[2021-08-19] MEDS: ClonazePAM 1 MG Tab PO PRN (15:18)
[2021-08-19] MEDS: Albuterol 8 GM Inhaler INH SCH ×2 (16:29→21:37)
[2021-08-19] MEDS: traZODone 50 MG Tab PO SCH (21:36)
[2021-08-20] MEDS: Dexamethasone 4 MG/ML SDV IVPUSH SCH (06:54)
[2021-08-20] MEDS: Albuterol 8 GM Inhaler INH SCH ×2 (07:13→11:01)
[2021-08-20] MEDS: Pantoprazole 40 MG Tab.CR PO SCH (07:58)
[2021-08-20] MEDS: Potassium Chloride 10 MEQ Cap.ER PO SCH ×2 (09:04→13:17)
[2021-08-20] MEDS: Venlafaxine 75 MG Cap.ER PO SCH (09:04)
[2021-08-20] MEDS: buPROPion 150 MG Tab.ER PO SCH (09:04)
[2021-08-20] MEDS: Magnesium Oxide 400 MG Tab PO SCH (09:05)
[2021-08-20] MEDS: Calcium Acetate 667 MG Cap PO SCH (09:05)
[2021-08-20] MEDS: ClonazePAM 1 MG Tab PO PRN (09:05)
[2021-08-20] MEDS: Buprenorphine/Naloxone 2-0.5 MG Tab.SL SL SCH ×2 (09:05→13:17)
[2021-08-20] MEDS: Enoxaparin 40 MG/0.4 ML Syringe SUBCUT SCH (13:17)
== END 2021-08-20 15:28 | disposition home health service (06) | DRG 177 ==
LOC: JP.ED 21:50 → JP.2SS 08-12 09:26
PROVIDERS: ADMIT Hospitalist; ATTEND Internal Medicine
PROC: 8E0ZXY6 Isolation (ICD-10-PCS; 2021-08-11)
PROC: 3E0333Z Introduction of Anti-inflammatory into Peripheral Vein, Percutaneous Approach (ICD-10-PCS; principal; 2021-08-12)
PROC: XW033E5 Introduction of Remdesivir Anti-infective into Peripheral Vein, Percutaneous Approach, New Technology Group 5 (ICD-10-PCS; 2021-08-13)
DX: U07.1 COVID-19 (principal); J12.82 Pneumonia due to coronavirus disease 2019; R53.1 Weakness; R29.6 Repeated falls; F91.9 Conduct disorder, unspecified; J96.01 Acute respiratory failure with hypoxia; H35.30 Unspecified macular degeneration; N17.9 Acute kidney failure, unspecified; N18.9 Chronic kidney disease, unspecified; N18.32 Chronic kidney disease, stage 3b; G89.4 Chronic pain syndrome; K21.9 Gastro-esophageal reflux disease without esophagitis; R68.83 Chills (without fever); M54.9 Dorsalgia, unspecified; G89.29 Other chronic pain; F41.9 Anxiety disorder, unspecified; F32.A Depression, unspecified; Z88.8 Allergy status to other drugs, medicaments and biological substances; Z88.5 Allergy status to narcotic agent; Z79.899 Other long term (current) drug therapy; Z79.51 Long term (current) use of inhaled steroids; Z90.710 Acquired absence of both cervix and uterus
CPT/HCPCS: 0241U; 36415; 70450; 71045; 80053; 80307; 81001; 82728; 83605; 83615; 84145; 84484; 85025; 85379; 85610; 85730; 86140; 93005; 93010; 94640; 94667; 94762; 97110; 97162; 97165; 97530; 97535; 99223; 99232; 99239; 99285; A9270-GY; J0248; J1100; J1650; J7040; J7050

== ENCOUNTER 2022-08-15 10:43 | Emergency (ER) | payer MEDICAID, MEDICARE ==
[2022-08-15] MEDS ORDERED: Lidocaine 1% with EPINEPHrine 1:100,000 50 ML MDV INFILT ONE (11:12)
== END 2022-08-15 12:03 | disposition home or self-care (01) ==
LOC: JP.ED 10:43
DX: S01.01XA Laceration without foreign body of scalp, initial encounter (principal); K21.9 Gastro-esophageal reflux disease without esophagitis; Z72.0 Tobacco use; Z88.6 Allergy status to analgesic agent; Z88.5 Allergy status to narcotic agent; Z79.899 Other long term (current) drug therapy; W01.198A Fall on same level from slipping, tripping and stumbling with subsequent striking against other object, initial encounter
CPT/HCPCS: 12001; 99281; 99282

== ENCOUNTER 2023-01-03 10:13 | Inpatient (IN) | payer MEDICAID, MEDICARE ==
[2023-01-03] MEDS ORDERED: Albuterol/Ipratropium 3.0-0.5 MG/3 ML Neb Soln NEB ONE ×2 (11:24→12:26)
[2023-01-03] MEDS ORDERED: Sodium Chloride 0.9% 10 ML Syringe FLUSH PRN (11:24)
[2023-01-03] MEDS ORDERED: methylPREDNISolone Sodium Succinate 125 MG/2 ML SDV IVPUSH ONE (11:26)
[2023-01-03 11:44] LABS: BASOPHILS ABSOLUTE AUTO 0.05 K/uL (0.00-0.10); BASOPHILS PERCENT AUTO 0.7 % (0.1-1.3); EOSINOPHILS ABSOLUTE AUTO 0.12 K/uL (0.00-0.40); EOSINOPHILS PERCENT AUTO 1.6 % (0.0-5.4); HEMATOCRIT 45.8 % (34.3-46.0); HEMOGLOBIN 14.4 g/dL (11.2-15.5); IMMATURE GRAN ABSOLUTE AUTO 0.04 K/uL (0.00-0.23); IMMATURE GRAN PERCENT AUTO 0.5 % (0.0-0.7); LYMPHOCYTES PERCENT AUTO 17.1 % (11.4-47.7); MEAN CORPUSCULAR HEMOGLOBIN 28.4 pg (31.6-35.5); MEAN CORPUSCULAR HGB CONC 31.4 g/dL (31.6-35.5); MEAN CORPUSCULAR VOLUME 90.3 fL (81.4-99.0); MONOCYTES PERCENT AUTO 7.9 % (3.3-12.6); NEUTROPHILS ABSOLUTE AUTO 5.48 K/uL (1.0-7.6); NEUTROPHILS PERCENT AUTO 72.2 % (40.0-78.1); PLATELET COUNT,PLT 289 K/uL (130-375); RED BLOOD CELL COUNT 5.07 M/uL (3.77-5.24); WHITE BLOOD CELL COUNT,WBC 7.6 K/uL (3.2-11.0)
[2023-01-03 12:05] LABS: A/G RATIO 0.8 (1.2-2.2); ALANINE AMINOTRANSFERASE,ALT 18 U/L (12-78); ALBUMIN 3.3 g/dL (3.4-5.0); ALKALINE PHOSPHATASE 116 U/L (46-116); ANION GAP 7.1 mmol/L (5.0-14.0); ASPARTATE AMNIOTRANSFERASE,AST 24 U/L (15-37); BILIRUBIN TOTAL 0.3 mg/dL (0.2-1.0); BLOOD UREA NITROGEN,BUN 8 mg/dL (7-18); CALCIUM 8.5 mg/dL (8.5-10.1); CARBON DIOXIDE,CO2 31 mmol/L (21-32); CHLORIDE,CL 102 mmol/L (100-108); CREATININE 0.9 mg/dL (0.6-1.0); EST CRCL DRUG DOSING (CG) 49.29 mL/min; ESTIMATED GFR 71 mL/min (>60); GLUCOSE RANDOM 115 mg/dL (74-106); POTASSIUM,K 4.1 mmol/L (3.6-5.2); PROTEIN TOTAL,TP 7.5 g/dL (6.4-8.2); SODIUM,NA 140 mmol/L (140-148)
[2023-01-03] MEDS ORDERED: Azithromycin 250 MG Tab PO ONE (12:30)
[2023-01-03] MEDS ORDERED: Ketorolac 30 MG/ML SDV IVPUSH ONE (12:34)
[2023-01-03] MEDS ORDERED: guaiFENesin 100 MG/5 ML Soln ML (118 ML Bottle) PO PRN (14:29)
[2023-01-03] MEDS ORDERED: Ibuprofen 400 MG Tab PO PRN (14:39)
[2023-01-03] MEDS ORDERED: Ondansetron 4 MG/2 ML SDV IV PRN (14:41)
[2023-01-03] MEDS ORDERED: Albuterol 0.083% 2.5 MG/3 ML Neb Soln NEB PRN (14:41)
[2023-01-03] MEDS ORDERED: Ondansetron 4 MG Tab.DIS PO PRN (14:41)
[2023-01-03] MEDS ORDERED: Sennosides/Docusate Sodium 50-8.6 MG Tab PO PRN (14:41)
[2023-01-03] MEDS ORDERED: Magnesium Hydroxide 400 MG/5 ML Susp 30 ML Cup PO PRN (14:41)
[2023-01-03] MEDS ORDERED: Nicotine 14 MG/24 Hr Patch TRDERM PRN (14:41)
[2023-01-03] MEDS: Enoxaparin 40 MG/0.4 ML Syringe SUBCUT SCH (16:05)
[2023-01-03] MEDS: guaiFENesin 100 MG/5 ML Soln 10 ML UD Cup PO PRN (16:05)
[2023-01-03] MEDS: traMADol 50 MG Tab PO PRN (16:06)
[2023-01-03] MEDS: ClonazePAM 1 MG Tab PO PRN ×2 (16:06→21:16)
[2023-01-03] MEDS ORDERED: Non-Formulary Medication 1 Each (Buprenorphine Hcl/Naloxone Hcl [Buprenorphine-Nalox 12-3m SL SCH (16:45)
[2023-01-03] MEDS: Albuterol/Ipratropium 3.0-0.5 MG/3 ML Neb Soln NEB SCH ×2 (18:06→20:52)
[2023-01-03] MEDS: methylPREDNISolone Sodium Succinate 40 MG/1 ML SDV IVPUSH SCH (20:40)
[2023-01-03] MEDS: Buprenorphine/Naloxone 2-0.5 MG Tab.SL SL SCH (20:40)
[2023-01-03] MEDS: Melatonin 3 MG Tab PO SCH (20:41)
[2023-01-03] MEDS: guaiFENesin 600 MG Tab.ER PO SCH (20:41)
[2023-01-03] MEDS: Doxycycline 100 MG Cap PO SCH (20:42)
[2023-01-03] MEDS: traZODone 50 MG Tab PO SCH (20:51)
[2023-01-03] MEDS ORDERED: traZODone 50 MG Tab PO SCH (21:00)
[2023-01-04] MEDS: methylPREDNISolone Sodium Succinate 40 MG/1 ML SDV IVPUSH SCH ×3 (05:24→19:29)
[2023-01-04] MEDS: guaiFENesin 100 MG/5 ML Soln 10 ML UD Cup PO PRN ×3 (05:34→19:32)
[2023-01-04] MEDS: traMADol 50 MG Tab PO PRN ×3 (05:34→19:29)
[2023-01-04] MEDS: ClonazePAM 1 MG Tab PO PRN ×2 (05:35→15:28)
[2023-01-04] MEDS: Albuterol/Ipratropium 3.0-0.5 MG/3 ML Neb Soln NEB SCH ×4 (07:00→20:51)
[2023-01-04] MEDS: Pantoprazole 40 MG Tab.CR PO SCH (07:20)
[2023-01-04] MEDS: Benzonatate 100 MG Cap PO PRN ×2 (07:31→15:28)
[2023-01-04] MEDS ORDERED: Non-Formulary Medication 1 Each (Omeprazole [Omeprazole] 40 MG Cap.Cr) PO SCH (09:00)
[2023-01-04] MEDS: Buprenorphine/Naloxone 2-0.5 MG Tab.SL SL SCH ×2 (09:05→14:12)
[2023-01-04] MEDS: Buprenorphine/Naloxone 8-2 MG Tab.SL SL SCH (09:12)
[2023-01-04] MEDS: Doxycycline 100 MG Cap PO SCH ×2 (09:13→20:50)
[2023-01-04] MEDS: Azithromycin 250 MG Tab PO SCH (09:13)
[2023-01-04] MEDS: guaiFENesin 600 MG Tab.ER PO SCH ×3 (09:13→20:49)
[2023-01-04] MEDS: CALCIUM ACETATE 667 MG PO SCH (09:14)
[2023-01-04] MEDS: Enoxaparin 40 MG/0.4 ML Syringe SUBCUT SCH (15:28)
[2023-01-04] MEDS: Nicotine 21 MG/24 Hr Patch TRDERM SCH (15:45)
[2023-01-04] MEDS: Melatonin 3 MG Tab PO SCH (20:49)
[2023-01-04] MEDS ORDERED: Calcium Carbonate 500 MG Tab.Chew PO PRN (20:54)
[2023-01-04] MEDS: traZODone 50 MG Tab PO SCH (21:31)
[2023-01-05] MEDS: methylPREDNISolone Sodium Succinate 40 MG/1 ML SDV IVPUSH SCH ×3 (03:01→19:44)
[2023-01-05] MEDS: traMADol 50 MG Tab PO PRN ×4 (03:01→22:13)
[2023-01-05] MEDS: guaiFENesin 100 MG/5 ML Soln 10 ML UD Cup PO PRN ×3 (03:01→15:53)
[2023-01-05] MEDS: Benzonatate 100 MG Cap PO PRN ×2 (03:01→20:00)
[2023-01-05] MEDS: Albuterol/Ipratropium 3.0-0.5 MG/3 ML Neb Soln NEB SCH ×4 (07:38→20:00)
[2023-01-05] MEDS: Pantoprazole 40 MG Tab.CR PO SCH (07:46)
[2023-01-05] MEDS: Buprenorphine/Naloxone 2-0.5 MG Tab.SL SL SCH ×2 (09:29→15:52)
[2023-01-05] MEDS: Buprenorphine/Naloxone 8-2 MG Tab.SL SL SCH (09:30)
[2023-01-05] MEDS: guaiFENesin 600 MG Tab.ER PO SCH ×3 (09:31→20:00)
[2023-01-05] MEDS: Azithromycin 250 MG Tab PO SCH (09:31)
[2023-01-05] MEDS: Nicotine 21 MG/24 Hr Patch TRDERM SCH (09:31)
[2023-01-05] MEDS: Doxycycline 100 MG Cap PO SCH ×2 (09:31→20:00)
[2023-01-05] MEDS: CALCIUM ACETATE 667 MG PO SCH (09:32)
[2023-01-05] MEDS: ClonazePAM 1 MG Tab PO PRN (12:00)
[2023-01-05] MEDS: Enoxaparin 40 MG/0.4 ML Syringe SUBCUT SCH (15:58)
[2023-01-05] MEDS: ClonazePAM 1 MG Tab PO SCH (20:00)
[2023-01-05] MEDS: traZODone 50 MG Tab PO SCH (20:00)
[2023-01-05] MEDS: Melatonin 3 MG Tab PO SCH (20:00)
[2023-01-06] MEDS: methylPREDNISolone Sodium Succinate 40 MG/1 ML SDV IVPUSH SCH ×3 (04:12→20:07)
[2023-01-06] MEDS: guaiFENesin 100 MG/5 ML Soln 10 ML UD Cup PO PRN ×2 (04:13→13:58)
[2023-01-06] MEDS: Albuterol/Ipratropium 3.0-0.5 MG/3 ML Neb Soln NEB SCH ×4 (06:57→20:11)
[2023-01-06] MEDS: Doxycycline 100 MG Cap PO SCH ×2 (08:22→20:07)
[2023-01-06] MEDS: guaiFENesin 600 MG Tab.ER PO SCH ×3 (08:22→20:07)
[2023-01-06] MEDS: Azithromycin 250 MG Tab PO SCH (08:23)
[2023-01-06] MEDS: Nicotine 21 MG/24 Hr Patch TRDERM SCH (08:23)
[2023-01-06] MEDS: Pantoprazole 40 MG Tab.CR PO SCH (08:23)
[2023-01-06] MEDS: Buprenorphine/Naloxone 8-2 MG Tab.SL SL SCH (08:34)
[2023-01-06] MEDS: ClonazePAM 1 MG Tab PO SCH ×3 (08:34→20:11)
[2023-01-06] MEDS: Buprenorphine/Naloxone 2-0.5 MG Tab.SL SL SCH ×2 (08:35→14:12)
[2023-01-06] MEDS: CALCIUM ACETATE 667 MG PO SCH (08:35)
[2023-01-06] MEDS: Benzonatate 100 MG Cap PO PRN (11:19)
[2023-01-06] MEDS: traMADol 50 MG Tab PO PRN (14:11)
[2023-01-06] MEDS: Enoxaparin 40 MG/0.4 ML Syringe SUBCUT SCH (15:48)
[2023-01-06] MEDS: Melatonin 3 MG Tab PO SCH (20:08)
[2023-01-06] MEDS: traZODone 50 MG Tab PO SCH (20:10)
[2023-01-07] MEDS: traMADol 50 MG Tab PO PRN ×4 (03:15→20:15)
[2023-01-07] MEDS: methylPREDNISolone Sodium Succinate 40 MG/1 ML SDV IVPUSH SCH ×3 (03:59→20:03)
[2023-01-07] MEDS: Albuterol/Ipratropium 3.0-0.5 MG/3 ML Neb Soln NEB SCH ×4 (07:07→20:04)
[2023-01-07] MEDS: Pantoprazole 40 MG Tab.CR PO SCH (07:49)
[2023-01-07] MEDS: Benzonatate 100 MG Cap PO PRN ×2 (07:50→20:04)
[2023-01-07] MEDS: guaiFENesin 600 MG Tab.ER PO SCH ×3 (08:29→20:03)
[2023-01-07] MEDS: Doxycycline 100 MG Cap PO SCH ×2 (08:30→20:04)
[2023-01-07] MEDS: Azithromycin 250 MG Tab PO SCH (08:30)
[2023-01-07] MEDS: Buprenorphine/Naloxone 8-2 MG Tab.SL SL SCH (08:30)
[2023-01-07] MEDS: Nicotine 21 MG/24 Hr Patch TRDERM SCH (08:30)
[2023-01-07] MEDS: Buprenorphine/Naloxone 2-0.5 MG Tab.SL SL SCH ×2 (08:31→15:00)
[2023-01-07] MEDS: ClonazePAM 1 MG Tab PO SCH ×3 (08:31→20:04)
[2023-01-07] MEDS: CALCIUM ACETATE 667 MG PO SCH (08:36)
[2023-01-07] MEDS: guaiFENesin 100 MG/5 ML Soln 10 ML UD Cup PO PRN (11:40)
[2023-01-07] MEDS: Enoxaparin 40 MG/0.4 ML Syringe SUBCUT SCH (15:00)
[2023-01-07] MEDS: Melatonin 3 MG Tab PO SCH (20:04)
[2023-01-07] MEDS: traZODone 50 MG Tab PO SCH (20:04)
[2023-01-08] MEDS: guaiFENesin 100 MG/5 ML Soln 10 ML UD Cup PO PRN (01:16)
[2023-01-08] MEDS: methylPREDNISolone Sodium Succinate 40 MG/1 ML SDV IVPUSH SCH ×2 (04:25→11:12)
[2023-01-08] MEDS: traMADol 50 MG Tab PO PRN (04:40)
[2023-01-08] MEDS: Albuterol/Ipratropium 3.0-0.5 MG/3 ML Neb Soln NEB SCH ×2 (06:57→10:57)
[2023-01-08] MEDS: Pantoprazole 40 MG Tab.CR PO SCH (07:26)
[2023-01-08] MEDS: ClonazePAM 1 MG Tab PO SCH (08:05)
[2023-01-08] MEDS: Azithromycin 250 MG Tab PO SCH (08:05)
[2023-01-08] MEDS: Doxycycline 100 MG Cap PO SCH (08:05)
[2023-01-08] MEDS: guaiFENesin 600 MG Tab.ER PO SCH (08:05)
[2023-01-08] MEDS: CALCIUM ACETATE 667 MG PO SCH (08:07)
[2023-01-08] MEDS: Nicotine 21 MG/24 Hr Patch TRDERM SCH (08:07)
[2023-01-08] MEDS: Buprenorphine/Naloxone 8-2 MG Tab.SL SL SCH (08:07)
[2023-01-08] MEDS: Buprenorphine/Naloxone 2-0.5 MG Tab.SL SL SCH (08:08)
[2023-01-12 14:13] LABS: A. PHAGOCYTOPHILUM IGG Negative (Neg:<1:64); A. PHAGOCYTOPHILUM IGM Negative (Neg:<1:20)
== END 2023-01-08 13:55 | disposition home or self-care (01) | DRG 189 ==
LOC: JP.ED 10:13 → JP.MS 14:41
PROVIDERS: ADMIT Internal Medicine; ATTEND Internal Medicine
DX: J96.01 Acute respiratory failure with hypoxia (principal); J44.1 Chronic obstructive pulmonary disease with (acute) exacerbation; Z20.822 Contact with and (suspected) exposure to COVID-19; F41.9 Anxiety disorder, unspecified; F17.210 Nicotine dependence, cigarettes, uncomplicated; K21.9 Gastro-esophageal reflux disease without esophagitis; Z88.4 Allergy status to anesthetic agent; Z88.6 Allergy status to analgesic agent; Z88.5 Allergy status to narcotic agent; Z90.49 Acquired absence of other specified parts of digestive tract; Z90.710 Acquired absence of both cervix and uterus; Z98.890 Other specified postprocedural states; Z79.899 Other long term (current) drug therapy
CPT/HCPCS: 36415; 71046; 71046-26; 80053; 85025; 86666; 87070; 87077; 87205; 94640; 94667; 96374; 96375; 99222; 99232; 99239; 99284-25; A9270-GY; J0574-GY; J1650; J1885; J2920; J2930; J3490; J7620; U0002

== ENCOUNTER 2024-02-08 19:18 | Emergency (ER) | payer MEDICARE, OTHER ==
[2024-02-08] MEDS: ClonazePAM 0.5 MG Tab PO ONE (19:46)
== END 2024-02-08 21:37 | disposition home or self-care (01) ==
LOC: JP.ED 19:18
DX: S22.089A Unspecified fracture of T11-T12 vertebra, initial encounter for closed fracture (principal); K21.9 Gastro-esophageal reflux disease without esophagitis; F17.210 Nicotine dependence, cigarettes, uncomplicated; Z86.16 Personal history of COVID-19; Z90.710 Acquired absence of both cervix and uterus; Z79.899 Other long term (current) drug therapy; Z79.2 Long term (current) use of antibiotics; Z88.5 Allergy status to narcotic agent; Z88.6 Allergy status to analgesic agent; Z88.8 Allergy status to other drugs, medicaments and biological substances; V28.49XA Other motorcycle driver injured in noncollision transport accident in traffic accident, initial encounter
CPT/HCPCS: 72128; 72131; 76377; 99284; A9270

== ENCOUNTER 2024-12-10 08:34 | Emergency (ER) | payer MEDICARE ==
[2024-12-10 09:32] LABS: BASOPHILS ABSOLUTE AUTO 0.03 K/uL (0.00-0.10); BASOPHILS PERCENT AUTO 0.7 % (0.1-1.3); EOSINOPHILS ABSOLUTE AUTO 0.12 K/uL (0.00-0.40); EOSINOPHILS PERCENT AUTO 2.9 % (0.0-5.4); HEMATOCRIT 36.4 % (34.3-46.0); HEMOGLOBIN 11.5 g/dL (11.2-15.5); IMMATURE GRAN ABSOLUTE AUTO 0.01 K/uL (0.00-0.23); IMMATURE GRAN PERCENT AUTO 0.2 % (0.0-0.7); MEAN CORPUSCULAR HGB CONC 31.6 g/dL (31.6-35.5); MONOCYTES ABSOLUTE AUTO 0.35 K/uL (0.20-0.90); MONOCYTES PERCENT AUTO 8.5 % (3.3-12.6); NEUTROPHILS ABSOLUTE AUTO 2.21 K/uL (1.0-7.6); NEUTROPHILS PERCENT AUTO 53.7 % (40.0-78.1); PLATELET COUNT,PLT 204 K/uL (130-375); RED BLOOD CELL COUNT 3.83 M/uL (3.77-5.24); WHITE BLOOD CELL COUNT,WBC 4.1 K/uL (3.2-11.0)
[2024-12-10] MEDS: Ibuprofen 400 MG Tab PO ONE (09:49)
[2024-12-10] MEDS: Acetaminophen 500 MG Tab PO ONE (09:52)
[2024-12-10 10:01] LABS: A/G RATIO 0.9 (1.2-2.2); ALANINE AMINOTRANSFERASE,ALT 7 U/L (12-78); ALBUMIN 2.9 g/dL (3.4-5.0); ALKALINE PHOSPHATASE 111 U/L (46-116); ASPARTATE AMNIOTRANSFERASE,AST 20 U/L (15-37); BILIRUBIN TOTAL 0.2 mg/dL (0.2-1.0); BLOOD UREA NITROGEN,BUN 32 mg/dL (7-18); CALCIUM 8.7 mg/dL (8.5-10.1); CARBON DIOXIDE,CO2 34 mmol/L (21-32); CHLORIDE,CL 102 mmol/L (100-108); CREATINE KINASE,CK 87 U/L (26-192); CREATININE 1.5 mg/dL (0.6-1.0); EST CRCL DRUG DOSING (CG) 28.78 mL/min; ESTIMATED GFR 38 mL/min (>60); GLUCOSE RANDOM 122 mg/dL (74-106); POTASSIUM,K 4.3 mmol/L (3.6-5.2); SODIUM,NA 144 mmol/L (140-148)
[2024-12-10 10:02] LABS: ANION GAP 12.3 mmol/L (5.0-14.0)
[2024-12-10] MEDS: Iopamidol 612 MG/ML 100 ML Bottle IV PRN (11:21)
[2024-12-10] MEDS: Sodium Chloride 0.9% 100 ML IV SCH (11:21)
== END 2024-12-10 14:00 | disposition home or self-care (01) ==
LOC: JP.ED 08:34
DX: M54.6 Pain in thoracic spine (principal); K21.9 Gastro-esophageal reflux disease without esophagitis; Z86.16 Personal history of COVID-19; Z79.899 Other long term (current) drug therapy; Z88.5 Allergy status to narcotic agent; Z88.8 Allergy status to other drugs, medicaments and biological substances; W19.XXXA Unspecified fall, initial encounter
CPT/HCPCS: 36415; 70450; 71260; 72125; 74177; 76377; 80053; 82550; 85025; 99284; A9270; Q9967

== ENCOUNTER 2025-03-19 19:40 | Emergency (ER) | payer MEDICARE ==
[2025-03-19] MEDS ORDERED: Sodium Chloride 0.9% 10 ML Syringe FLUSH PRN (20:24)
[2025-03-19 20:42] LABS: BASOPHILS ABSOLUTE AUTO 0.04 K/uL (0.00-0.10); BASOPHILS PERCENT AUTO 0.4 % (0.1-1.3); EOSINOPHILS ABSOLUTE AUTO 0.00 K/uL (0.00-0.40); EOSINOPHILS PERCENT AUTO 0.0 % (0.0-5.4); IMMATURE GRAN ABSOLUTE AUTO 0.05 K/uL (0.00-0.23); IMMATURE GRAN PERCENT AUTO 0.4 % (0.0-0.7); LYMPHOCYTES ABSOLUTE AUTO 1.26 K/uL (0.8-3.3); LYMPHOCYTES PERCENT AUTO 11.3 % (11.4-47.7); MONOCYTES ABSOLUTE AUTO 0.37 K/uL (0.20-0.90); MONOCYTES PERCENT AUTO 3.3 % (3.3-12.6); NEUTROPHILS ABSOLUTE AUTO 9.42 K/uL (1.0-7.6); NEUTROPHILS PERCENT AUTO 84.6 % (40.0-78.1); PLATELET COUNT,PLT 289 K/uL (130-375); RED BLOOD CELL COUNT 4.33 M/uL (3.77-5.24); WHITE BLOOD CELL COUNT,WBC 11.1 K/uL (3.2-11.0)
[2025-03-19 21:08] LABS: LACTIC ACID 1.4 mmol/L (0.4-2.0)
[2025-03-19 21:15] LABS: A/G RATIO 1.0 (1.2-2.2); ALANINE AMINOTRANSFERASE,ALT 17 U/L (12-78); ASPARTATE AMNIOTRANSFERASE,AST 19 U/L (15-37); BILIRUBIN TOTAL 0.4 mg/dL (0.2-1.0); BLOOD UREA NITROGEN,BUN 22 mg/dL (7-18); CARBON DIOXIDE,CO2 29 mmol/L (21-32); CHLORIDE,CL 107 mmol/L (100-108); CREATININE 1.6 mg/dL (0.6-1.0); EST CRCL DRUG DOSING (CG) 25.75 mL/min; ESTIMATED GFR 35 mL/min (>60); GLUCOSE RANDOM 108 mg/dL (74-106); POTASSIUM,K 4.4 mmol/L (3.6-5.2); PROTEIN TOTAL,TP 7.1 g/dL (6.4-8.2); SODIUM,NA 145 mmol/L (140-148)
[2025-03-19] MEDS: Iopamidol 612 MG/ML 100 ML Bottle IV ONE (22:30)
[2025-03-19] MEDS: Sodium Chloride 0.9% 10 ML Syringe FLUSH ONE (22:30)
== END 2025-03-19 23:48 | disposition home or self-care (01) ==
LOC: JP.ED 19:40
DX: K52.9 Noninfective gastroenteritis and colitis, unspecified (principal); F17.200 Nicotine dependence, unspecified, uncomplicated; Z88.5 Allergy status to narcotic agent; Z88.8 Allergy status to other drugs, medicaments and biological substances; Z79.899 Other long term (current) drug therapy; Z90.710 Acquired absence of both cervix and uterus
CPT/HCPCS: 36415; 74177; 80053; 83605; 83690; 85025; 96360; 99284; J7030; Q9967

== ENCOUNTER 2025-03-24 14:05 | Emergency (ER) | payer MEDICARE ==
[2025-03-24 15:57] LABS: BASOPHILS ABSOLUTE AUTO 0.04 K/uL (0.00-0.10); BASOPHILS PERCENT AUTO 0.6 % (0.1-1.3); EOSINOPHILS PERCENT AUTO 0.1 % (0.0-5.4); IMMATURE GRAN PERCENT AUTO 0.3 % (0.0-0.7); LYMPHOCYTES ABSOLUTE AUTO 1.12 K/uL (0.8-3.3); LYMPHOCYTES PERCENT AUTO 15.5 % (11.4-47.7); MONOCYTES ABSOLUTE AUTO 0.26 K/uL (0.20-0.90); MONOCYTES PERCENT AUTO 3.6 % (3.3-12.6); NEUTROPHILS ABSOLUTE AUTO 5.76 K/uL (1.0-7.6); NEUTROPHILS PERCENT AUTO 79.9 % (40.0-78.1); PLATELET COUNT,PLT 268 K/uL (130-375); RED BLOOD CELL COUNT 3.92 M/uL (3.77-5.24); WHITE BLOOD CELL COUNT,WBC 7.2 K/uL (3.2-11.0)
[2025-03-24 15:59] LABS: EOSINOPHILS ABSOLUTE AUTO 0.01 K/uL (0.00-0.40); IMMATURE GRAN ABSOLUTE AUTO 0.02 K/uL (0.00-0.23)
[2025-03-24 16:24] LABS: INR 0.9
[2025-03-24 16:31] LABS: A/G RATIO 1.1 (1.2-2.2); ALANINE AMINOTRANSFERASE,ALT 18 U/L (12-78); ASPARTATE AMNIOTRANSFERASE,AST 18 U/L (15-37); BILIRUBIN TOTAL 0.2 mg/dL (0.2-1.0); BLOOD UREA NITROGEN,BUN 17 mg/dL (7-18); CARBON DIOXIDE,CO2 35 mmol/L (21-32); CHLORIDE,CL 102 mmol/L (100-108); CREATININE 1.0 mg/dL (0.6-1.0); EST CRCL DRUG DOSING (CG) 41.19 mL/min; ESTIMATED GFR 62 mL/min (>60); GLUCOSE RANDOM 103 mg/dL (74-106); POTASSIUM,K 4.3 mmol/L (3.6-5.2); PROTEIN TOTAL,TP 6.8 g/dL (6.4-8.2); SODIUM,NA 141 mmol/L (140-148)
[2025-03-24 16:33] LABS: CREATINE KINASE,CK 37 U/L (26-192); LACTATE DEHYDROGENASE,LDH 151 U/L (82-234)
[2025-03-24] MEDS: LORazepam 2 MG/ML SDV IVPUSH ONE (16:59)
[2025-03-24] MEDS ORDERED: [UNRECOGNIZED DRUG - OTHER] PO ONE (18:05)
[2025-03-24] MEDS ORDERED: MINERAL OIL PO ONE (18:05)
[2025-03-24] MEDS: Na Phos,M-B/Na Phos,DI-B 60 ML, Mineral Oil 50 ML, Docusate Sodium 400 MG, Magnesium Ci... RECTAL ONE (18:05)
[2025-03-24] MEDS ORDERED: MAGNESIUM CITRATE PO ONE (18:05)
[2025-03-24] MEDS ORDERED: DOCUSATE SODIUM PO ONE (18:05)
[2025-03-24] MEDS: Polyethylene Glycol 3350 Powder 238 GM Bot PO ONE (20:53)
== END 2025-03-24 22:12 | disposition home or self-care (01) ==
LOC: JP.ED 14:05
DX: K62.3 Rectal prolapse (principal); J44.9 Chronic obstructive pulmonary disease, unspecified; F17.210 Nicotine dependence, cigarettes, uncomplicated; Z88.5 Allergy status to narcotic agent; Z88.6 Allergy status to analgesic agent; Z79.51 Long term (current) use of inhaled steroids; Z79.899 Other long term (current) drug therapy
CPT/HCPCS: 36415; 74018; 80053; 82550; 83605; 83615; 85025; 85610; 96374; 99284; A9270; J2060

== ENCOUNTER 2025-04-12 06:45 | Day surgery (SDC) | payer MEDICARE ==
[2025-04-12] MEDS ORDERED: Propofol 200 MG/20 ML SDV ONE (07:30)
[2025-04-12] MEDS ORDERED: fentaNYL 50 MCG/ML SDV ONE (07:30)
[2025-04-12] MEDS: Lactated Ringers 1,000 ML IV SCH (08:57)
== END 2025-04-12 10:32 | disposition home or self-care (01) ==
LOC: JP.SDS 06:45
PROVIDERS: ATTEND Surgery
DX: K63.5 Polyp of colon (principal); K64.9 Unspecified hemorrhoids; Z88.8 Allergy status to other drugs, medicaments and biological substances; Z88.5 Allergy status to narcotic agent; Z79.899 Other long term (current) drug therapy
CPT/HCPCS: 00811; 45380; 45398; J2704; J3010; J7120

== ENCOUNTER 2025-04-18 20:52 | Emergency (ER) | payer MEDICARE ==
[2025-04-18 21:18] LABS: BASOPHILS ABSOLUTE AUTO 0.05 K/uL (0.00-0.10); BASOPHILS PERCENT AUTO 0.4 % (0.1-1.3); EOSINOPHILS ABSOLUTE AUTO 0.01 K/uL (0.00-0.40); EOSINOPHILS PERCENT AUTO 0.1 % (0.0-5.4); IMMATURE GRAN ABSOLUTE AUTO 0.04 K/uL (0.00-0.23); IMMATURE GRAN PERCENT AUTO 0.3 % (0.0-0.7); LYMPHOCYTES ABSOLUTE AUTO 1.81 K/uL (0.8-3.3); LYMPHOCYTES PERCENT AUTO 14.0 % (11.4-47.7); MONOCYTES ABSOLUTE AUTO 0.73 K/uL (0.20-0.90); MONOCYTES PERCENT AUTO 5.7 % (3.3-12.6); NEUTROPHILS ABSOLUTE AUTO 10.28 K/uL (1.0-7.6); NEUTROPHILS PERCENT AUTO 79.5 % (40.0-78.1); PLATELET COUNT,PLT 347 K/uL (130-375); RED BLOOD CELL COUNT 4.34 M/uL (3.77-5.24); WHITE BLOOD CELL COUNT,WBC 12.9 K/uL (3.2-11.0)
[2025-04-18 21:38] LABS: A/G RATIO 1.0 (1.2-2.2); ALANINE AMINOTRANSFERASE,ALT 17 U/L (12-78); ASPARTATE AMNIOTRANSFERASE,AST 18 U/L (15-37); BILIRUBIN TOTAL 0.5 mg/dL (0.2-1.0); BLOOD UREA NITROGEN,BUN 21 mg/dL (7-18); CARBON DIOXIDE,CO2 31 mmol/L (21-32); CHLORIDE,CL 99 mmol/L (100-108); CREATININE 1.0 mg/dL (0.6-1.0); EST CRCL DRUG DOSING (CG) 39.09 mL/min; ESTIMATED GFR 62 mL/min (>60); GLUCOSE RANDOM 100 mg/dL (74-106); POTASSIUM,K 3.2 mmol/L (3.6-5.2); PROTEIN TOTAL,TP 7.1 g/dL (6.4-8.2); SODIUM,NA 141 mmol/L (140-148)
[2025-04-18 21:43] LABS: LACTIC ACID 1.3 mmol/L (0.4-2.0)
[2025-04-18 22:01] LABS: APPEARANCE,URINE SLIGHTLY CLOUDY (CLEAR); GLUCOSE,URINE NEGATIVE (NEGATIVE); OCCULT BLOOD,URINE NEGATIVE (NEGATIVE)
[2025-04-18 22:06] LABS: SQUAMOUS EPITHELIAL CELLS,UR FEW /HPF; UROTHELIAL CELLS,URINE NOT SEEN /HPF
[2025-04-18] MEDS: Prochlorperazine 10 MG/2 ML SDV IVPUSH ONE (22:26)
[2025-04-18] MEDS: Iopamidol 612 MG/ML 100 ML Bottle IV ONE (22:44)
[2025-04-18] MEDS: Sodium Chloride 0.9% 10 ML Syringe FLUSH ONE (22:44)
[2025-04-18] MEDS: NS + KCl 20mEq/L 1,000 ML IV SCH (22:48)
== END 2025-04-18 23:49 | disposition home or self-care (01) ==
LOC: JP.ED 20:52
DX: R11.2 Nausea with vomiting, unspecified (principal); F17.210 Nicotine dependence, cigarettes, uncomplicated; J44.9 Chronic obstructive pulmonary disease, unspecified; Z90.710 Acquired absence of both cervix and uterus; Z88.8 Allergy status to other drugs, medicaments and biological substances; Z88.5 Allergy status to narcotic agent
CPT/HCPCS: 36415; 74177; 80053; 81001; 83605; 83690; 85025; 86140; 96365; 96375; 99285; J0780; J3480; Q9967

== ENCOUNTER 2025-05-02 16:01 | Inpatient (IN) | payer MEDICARE ==
[2025-05-02 16:53] LABS: BASOPHILS ABSOLUTE AUTO 0.03 K/uL (0.00-0.10); BASOPHILS PERCENT AUTO 0.3 % (0.1-1.3); EOSINOPHILS PERCENT AUTO 0.1 % (0.0-5.4); IMMATURE GRAN ABSOLUTE AUTO 0.05 K/uL (0.00-0.23); IMMATURE GRAN PERCENT AUTO 0.5 % (0.0-0.7); LYMPHOCYTES ABSOLUTE AUTO 0.93 K/uL (0.8-3.3); LYMPHOCYTES PERCENT AUTO 8.6 % (11.4-47.7); MONOCYTES ABSOLUTE AUTO 0.64 K/uL (0.20-0.90); MONOCYTES PERCENT AUTO 5.9 % (3.3-12.6); NEUTROPHILS ABSOLUTE AUTO 9.14 K/uL (1.0-7.6); NEUTROPHILS PERCENT AUTO 84.6 % (40.0-78.1); PLATELET COUNT,PLT 304 K/uL (130-375); RED BLOOD CELL COUNT 4.07 M/uL (3.77-5.24); WHITE BLOOD CELL COUNT,WBC 10.8 K/uL (3.2-11.0)
[2025-05-02 16:54] LABS: EOSINOPHILS ABSOLUTE AUTO 0.01 K/uL (0.00-0.40)
[2025-05-02 17:02] LABS: BASE EXCESS VENOUS -3.2 mm/L; BICARBONATE,VENOUS 22.5 mmol/L; O2 SATURATION VENOUS 48.6; OXYHEMOGLOBIN 47.6 %; PCO2 VENOUS 45.3 mm/Hg; PH,VENOUS 7.317 (7.350-7.450); TOTAL HEMOGLOBIN 12.9 g/dL (12.0-16.0)
[2025-05-02 17:05] LABS: PO2 VENOUS 31.6 mm/Hg
[2025-05-02 17:10] LABS: INR 1.0
[2025-05-02 17:15] LABS: A/G RATIO 0.7 (1.2-2.2); ALANINE AMINOTRANSFERASE,ALT 75 U/L (12-78); ASPARTATE AMNIOTRANSFERASE,AST 272 U/L (15-37); BILIRUBIN TOTAL 0.4 mg/dL (0.2-1.0); BLOOD UREA NITROGEN,BUN 18 mg/dL (7-18); CARBON DIOXIDE,CO2 24 mmol/L (21-32); CHLORIDE,CL 102 mmol/L (100-108); CREATININE 1.2 mg/dL (0.6-1.0); EST CRCL DRUG DOSING (CG) 32.09 mL/min; ESTIMATED GFR 49 mL/min (>60); GLUCOSE RANDOM 71 mg/dL (74-106); POTASSIUM,K 3.4 mmol/L (3.6-5.2); PROTEIN TOTAL,TP 6.5 g/dL (6.4-8.2); SODIUM,NA 142 mmol/L (140-148)
[2025-05-02 20:54] LABS: APPEARANCE,URINE SLIGHTLY CLOUDY (CLEAR); GLUCOSE,URINE NEGATIVE (NEGATIVE); OCCULT BLOOD,URINE SMALL (NEGATIVE)
[2025-05-02 20:57] LABS: AMPHETAMINES SCREEN, URINE NEGATIVE (NEGATIVE); METHADONE SCREEN, URINE NEGATIVE (NEGATIVE); METHAMPHETAMINES SCREEN, URINE NEGATIVE (NEGATIVE); OXYCODONE SCREEN,URINE NEGATIVE (NEGATIVE); PROPOXYPHENE SCREEN,URINE NEGATIVE (NEGATIVE); THC SCREEN,URINE 50 NG/ML NEGATIVE (NEGATIVE)
[2025-05-02 20:58] LABS: SQUAMOUS EPITHELIAL CELLS,UR RARE /HPF
[2025-05-02 21:35] LABS: CORONAVIRUS COVID-19 NAA NEGATIVE (NEGATIVE); INFLUENZA A NAA NEGATIVE (NEGATIVE); INFLUENZA B NAA NEGATIVE (NEGATIVE); RESPIRATORY SYNCYTIAL VIR NAA NEGATIVE (NEGATIVE)
[2025-05-02] MEDS ORDERED: Ondansetron 4 MG Tab.DIS PO PRN (23:10)
[2025-05-02] MEDS ORDERED: Albuterol 0.083% 2.5 MG/3 ML Neb Soln NEB PRN (23:10)
[2025-05-03] MEDS: Iopamidol 755 Mg/ML 100 ML Bottle IV SCH (00:18)
[2025-05-03] MEDS: Sodium Chloride 0.9% 10 ML Syringe FLUSH PRN (00:18)
[2025-05-03] MEDS: Buprenorphine/Naloxone 8-2 MG Tab.SL SL SCH (01:03)
[2025-05-03] MEDS: Ondansetron 4 MG/2 ML SDV IV PRN (01:21)
[2025-05-03 06:02] LABS: PLATELET COUNT,PLT 241.0 K/uL (130-375); RED BLOOD CELL COUNT 3.32 M/uL (3.77-5.24); WHITE BLOOD CELL COUNT,WBC 7.5 K/uL (3.2-11.0)
[2025-05-03] MEDS ORDERED: Buprenorphine/Naloxone 8-2 MG Tab.SL SL SCH ×2 (09:00→17:00)
[2025-05-03] MEDS: Buprenorphine/Naloxone 1 TAB, Buprenorphine/Naloxone 2 TAB SL SCH (09:03)
[2025-05-03] MEDS: Buprenorphine/Naloxone 2-0.5 MG Tab.SL SL SCH (18:41)
[2025-05-03 23:15] LABS: BLOOD UREA NITROGEN,BUN 9.0 mg/dL (7-18); CARBON DIOXIDE,CO2 23.0 mmol/L (21-32); CHLORIDE,CL 112.0 mmol/L (100-108); CREATININE 0.8 mg/dL (0.6-1.0); EST CRCL DRUG DOSING (CG) 50.79 mL/min; ESTIMATED GFR 80.0 mL/min (>60); POTASSIUM,K 3.6 mmol/L (3.6-5.2); SODIUM,NA 144.0 mmol/L (140-148)
[2025-05-03 23:51] LABS: GLUCOSE RANDOM 80.0 mg/dL (74-106)
[2025-05-04 06:07] LABS: BLOOD UREA NITROGEN,BUN 7.0 mg/dL (7-18); CARBON DIOXIDE,CO2 19.0 mmol/L (21-32); CHLORIDE,CL 112.0 mmol/L (100-108); CREATININE 0.7 mg/dL (0.6-1.0); EST CRCL DRUG DOSING (CG) 58.04 mL/min; ESTIMATED GFR 94.0 mL/min (>60); GLUCOSE RANDOM 74.0 mg/dL (74-106); POTASSIUM,K 3.3 mmol/L (3.6-5.2); SODIUM,NA 145.0 mmol/L (140-148)
[2025-05-04] MEDS: Magnesium Hydroxide 400 MG/5 ML Susp 30 ML Cup PO PRN (09:18)
[2025-05-04] MEDS: Sennosides/Docusate Sodium 50-8.6 MG Tab PO PRN (09:19)
[2025-05-04 12:02] LABS: BLOOD UREA NITROGEN,BUN 5.0 mg/dL (7-18); CARBON DIOXIDE,CO2 19.0 mmol/L (21-32); CHLORIDE,CL 109.0 mmol/L (100-108); CREATININE 0.7 mg/dL (0.6-1.0); EST CRCL DRUG DOSING (CG) 58.04 mL/min; ESTIMATED GFR 94.0 mL/min (>60); GLUCOSE RANDOM 78.0 mg/dL (74-106); POTASSIUM,K 3.6 mmol/L (3.6-5.2); SODIUM,NA 143.0 mmol/L (140-148)
[2025-05-05 09:12] LABS: ANAPLASMA PHAGOCYTOPHILUM PCR Not Detected; BABESIA MICROTI BY PCR Not Detected; EHRLICHIA CHAFFEENSIS BY PCR Not Detected; EHRLICHIA EWINGII/CANIS BY PCR Not Detected; EHRLICHIA MURIS-LIKE BY PCR Not Detected
[2025-05-05 09:13] LABS: PLATELET COUNT,PLT 199.0 K/uL (130-375); RED BLOOD CELL COUNT 3.69 M/uL (3.77-5.24); WHITE BLOOD CELL COUNT,WBC 4.8 K/uL (3.2-11.0)
[2025-05-05 09:41] LABS: A/G RATIO 0.6 (1.2-2.2); ALANINE AMINOTRANSFERASE,ALT 63 U/L (12-78); ASPARTATE AMNIOTRANSFERASE,AST 170 U/L (15-37); BILIRUBIN TOTAL 0.1 mg/dL (0.2-1.0); BLOOD UREA NITROGEN,BUN 3 mg/dL (7-18); CARBON DIOXIDE,CO2 24 mmol/L (21-32); CHLORIDE,CL 110 mmol/L (100-108); CREATININE 0.7 mg/dL (0.6-1.0); EST CRCL DRUG DOSING (CG) 58.04 mL/min; ESTIMATED GFR 94 mL/min (>60); GLUCOSE RANDOM 98 mg/dL (74-106); POTASSIUM,K 3.5 mmol/L (3.6-5.2); PROTEIN TOTAL,TP 5.2 g/dL (6.4-8.2); SODIUM,NA 144 mmol/L (140-148)
[2025-05-05 09:42] LABS: CREATINE KINASE,CK 2487 U/L (26-192)
[2025-05-05] MEDS: Potassium Chloride 20 MEQ Tab.ER PO ONE (11:41)
[2025-05-05 12:13] LABS: HEPATITIS B SURFACE ANTIBODY <3.10 IU/L
[2025-05-05 17:18] LABS: HEPATITIS A ANTIBODY, IGM Negative (Negative); HEPATITIS C AB CIA INTERP Negative (Negative); HEPATITIS C ANTIBODY CIA INDEX 0.11 IV
[2025-05-06 11:07] LABS: A/G RATIO 0.6 (1.2-2.2); ALANINE AMINOTRANSFERASE,ALT 65 U/L (12-78); ASPARTATE AMNIOTRANSFERASE,AST 145 U/L (15-37); BILIRUBIN TOTAL 0.1 mg/dL (0.2-1.0); BLOOD UREA NITROGEN,BUN 3 mg/dL (7-18); CARBON DIOXIDE,CO2 27 mmol/L (21-32); CHLORIDE,CL 108 mmol/L (100-108); CREATININE 0.8 mg/dL (0.6-1.0); EST CRCL DRUG DOSING (CG) 50.79 mL/min; ESTIMATED GFR 80 mL/min (>60); GLUCOSE RANDOM 142 mg/dL (74-106); POTASSIUM,K 3.0 mmol/L (3.6-5.2); PROTEIN TOTAL,TP 5.3 g/dL (6.4-8.2); SODIUM,NA 144 mmol/L (140-148)
[2025-05-06 11:09] LABS: CREATINE KINASE,CK 1470 U/L (26-192)
[2025-05-06] MEDS: Potassium Chloride 20 MEQ Tab.ER PO ONE (13:07)
[2025-05-07 10:19] LABS: PLATELET COUNT,PLT 225.0 K/uL (130-375); RED BLOOD CELL COUNT 3.31 M/uL (3.77-5.24); WHITE BLOOD CELL COUNT,WBC 4.4 K/uL (3.2-11.0)
[2025-05-07 10:41] LABS: A/G RATIO 0.6 (1.2-2.2); ALANINE AMINOTRANSFERASE,ALT 55 U/L (12-78); ASPARTATE AMNIOTRANSFERASE,AST 97 U/L (15-37); BLOOD UREA NITROGEN,BUN 2 mg/dL (7-18); CARBON DIOXIDE,CO2 31 mmol/L (21-32); CHLORIDE,CL 108 mmol/L (100-108); CREATININE 0.7 mg/dL (0.6-1.0); EST CRCL DRUG DOSING (CG) 58.04 mL/min; ESTIMATED GFR 94 mL/min (>60); GLUCOSE RANDOM 112 mg/dL (74-106); POTASSIUM,K 3.4 mmol/L (3.6-5.2); PROTEIN TOTAL,TP 4.9 g/dL (6.4-8.2); SODIUM,NA 144 mmol/L (140-148)
[2025-05-07 10:46] LABS: BILIRUBIN TOTAL < 0.1 mg/dL (0.2-1.0)
[2025-05-07] MEDS: Potassium Chloride 20 MEQ Tab.ER PO ONE (11:29)
[2025-05-08] MEDS: Potassium Chloride 20 MEQ Tab.ER PO ONE (08:45)
[2025-05-08] MEDS: LIDOCAINE TOP SCH (21:59)
[2025-05-09 06:51] LABS: BLOOD UREA NITROGEN,BUN 4.0 mg/dL (7-18); CARBON DIOXIDE,CO2 28.0 mmol/L (21-32); CHLORIDE,CL 108.0 mmol/L (100-108); CREATINE KINASE,CK 448.0 U/L (26-192); CREATININE 0.6 mg/dL (0.6-1.0); EST CRCL DRUG DOSING (CG) 67.79 mL/min; ESTIMATED GFR 98.0 mL/min (>60); GLUCOSE RANDOM 92.0 mg/dL (74-106); POTASSIUM,K 3.5 mmol/L (3.6-5.2); SODIUM,NA 145.0 mmol/L (140-148)
[2025-05-09] MEDS: Potassium Chloride 20 MEQ Tab.ER PO ONE (08:15)
[2025-05-09] MEDS: LIDOCAINE 5% TOP SCH (08:16)
== END 2025-05-10 08:25 | disposition home or self-care (01) | DRG 564 ==
LOC: JP.ED 16:01 → JP.MS 20:54
PROVIDERS: ADMIT Registered Nurse; ATTEND Internal Medicine
PROC: 4A033R1 Measurement of Arterial Saturation, Peripheral, Percutaneous Approach (ICD-10-PCS; principal; 2025-05-02)
DX: T79.6XXA Traumatic ischemia of muscle, initial encounter (principal); R79.89 Other specified abnormal findings of blood chemistry; G92.9 Unspecified toxic encephalopathy; J18.9 Pneumonia, unspecified organism; Z88.5 Allergy status to narcotic agent; F11.221 Opioid dependence with intoxication delirium; N17.9 Acute kidney failure, unspecified; R29.6 Repeated falls; F41.8 Other specified anxiety disorders; I10 Essential (primary) hypertension; K21.9 Gastro-esophageal reflux disease without esophagitis; F43.12 Post-traumatic stress disorder, chronic; F41.9 Anxiety disorder, unspecified; F32.9 Major depressive disorder, single episode, unspecified; M79.7 Fibromyalgia; R62.7 Adult failure to thrive; G89.29 Other chronic pain; F17.200 Nicotine dependence, unspecified, uncomplicated; J44.9 Chronic obstructive pulmonary disease, unspecified; K62.3 Rectal prolapse; H40.9 Unspecified glaucoma; H54.7 Unspecified visual loss; K59.00 Constipation, unspecified; M19.90 Unspecified osteoarthritis, unspecified site; M54.9 Dorsalgia, unspecified; F32.A Depression, unspecified; Z85.820 Personal history of malignant melanoma of skin; Z86.16 Personal history of COVID-19; Z90.49 Acquired absence of other specified parts of digestive tract; Z88.8 Allergy status to other drugs, medicaments and biological substances; Z79.899 Other long term (current) drug therapy; Z90.710 Acquired absence of both cervix and uterus; Z98.890 Other specified postprocedural states
CPT/HCPCS: 36415; 70450; 73030 ×2; 80053; 80305; 80307; 81001; 82550; 82803; 83605; 84443; 85025; 85610; 86618 ×2; 87070; 87186; 87205; 87468; 87469; 87484; 87798 ×3; 96360; 99284; 99285; C1758; J7030 ×2; 51702; 70496; 70498; 71045; 71045-26; 73060-26-RT; 73060-RT; 73090-26-RT; 73090-RT; 80048; 80074; 82140; 85027; 86706; 87077; 87637; 93005; 97162-GP; 97166-GO; 97530-GO; 97530-GP; 97535-GO; A9270-GY; J0574-GY; J0696; J1650; J2405; J2470; J3480; Q9967